=== PATIENT | male | born 1940 | race Caucasian/White ===

== ENCOUNTER → 2017-09-18 07:01 | Outpatient (CLI) | payer MEDICARE, BC, SELFPAY ==
[2017-09-18 11:48] LABS: Erythrocyte Sedimentation Rate 3 mm/hr (0-20)
[2017-09-18 11:52] LABS: Absolute Lymphocyte Count 1.14 X10^3/ul (0.83-4.51); Absolute Neutrophil Count 3.2 X10^3/uL (2.0-7.7); Basophil# 0.04 X10^3/uL; Basophil% 0.8 % (0-1); Eosinophil# 0.22 X10^3/uL; Eosinophils% 4.3 % (0-5); Hematocrit 42.4 % (40-54); Hemoglobin 13.9 g/dl (13.0-16.5); Lymphocyte # 1.14 X10^3/ul (4.0); Lymphocyte % 22.4 % (19-41); Mean Corp Hgb Conc 32.8 g/gl (32-36); Mean Corpuscular Volume 88.5 fL (80-94); Monocyte# 0.49 X10^3/uL; Monocyte% 9.6 % (0-10); Neutrophil # 3.21 X10^3/uL (2.7-7.7); Neutrophil % 62.9 % (47-70); Platelet Count 189 K/mm3 (150-450); RBC Distribution Width CV 13.8 % (11.6-14.6); RBC Distribution Width SD 43.9 fl (35.1-43.9); Red Blood Count 4.79 M/mm3 (4.6-6.2); White Blood Count 5.1 K/mm3 (4.4-11.0)
[2017-09-18 11:53] LABS: POSITIVE COUNT NO; POSITIVE DIFFERENTIAL NO; POSITIVE MORPHOLOGY NO
[2017-09-18 12:16] LABS: CRP < 2.90 mg/L (0.0-3.0)
== END ==
PROVIDERS: Family Provider Family Medicine; PCP Family Medicine; Visit Provider Specialist
DX: M25.562 Pain in left knee (principal)
CPT/HCPCS: 36415; 85025; 85652; 86140

== ENCOUNTER 2017-10-02 10:25 | Inpatient (IN) | payer MEDICARE, BC, SELFPAY ==
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
[2017-09-21 08:29] VITALS: BP 144/82; PULSE 64; RESP 17; TEMP 36.3; O2SAT 97; BMI 30.4
[2017-09-21 09:36] LABS: AST(SGOT) 22 U/L (15-37); Alanine Aminotransfer ALT/SGPT 23 U/L (16-61); Albumin, Serum 3.7 g/dL (3.2-5.0); Alkaline Phosphatase 70 U/L (45-117); Anion Gap 7 (5-15); BUN 25 mg/dL (7-18); Bilirubin, Direct 0.12 mg/dL (0.00-0.30); Calcium,Total 8.4 mg/dL (8.5-10.1); Chloride 105 mmol/L (98-107); EST Glomerular Filtration Rate 77 mL/min (>60); Est Glom Filt Rate - Afr Amer 94 mL/min (>60); Globulin 3.2 g/dL (2.2-4.2); Glucose 131 mg/dL (74-106); Protein, Total 6.9 g/dL (6.4-8.2); Sodium Level 140 mmol/L (136-145)
[2017-10-02] VITALS (13 sets, daily range): BP systolic 133–174; BP diastolic 73–86; PULSE 67–82; RESP 16; TEMP 36.1–36.9; O2SAT 91–96; BMI 30.4
--- NOTE | 2017-10-02 07:12 | RAD_ITS ---
STUDY: X-RAY - LEFT KNEE REASON FOR EXAM: Male, 77 years old. Total knee replacement. TECHNIQUE: AP and lateral view(s) of the knee. COMPARISON: None. FINDINGS: Normal visualized distal femur. Normal visualized proximal tibia and fibula. Normal proximal tibiofibular articulation. The patient is status post total knee replacement. There is good alignment. Postoperative soft tissue changes. RAD/Knee 1 or 2 Views IMPRESSION: Total knee replacement. There is good alignment. Postoperative soft tissue changes. Electronically Signed: Carroll Villegas MD at 14:58 EDT Tel [phone], Service support ,
[2017-10-02] MEDS: Lactated Ringers 1,000 ML 999 ML IV (10:55)
[2017-10-02] MEDS: oxyCODONE HCl Cr 10 MG Tablet PO (11:19)
[2017-10-02] MEDS: Celecoxib 200 MG Capsule 400 MG PO (11:19)
[2017-10-02] MEDS: Acetaminophen 500 MG Tablet 1000 MG PO ×3 (11:19→21:08)
[2017-10-02] MEDS: Cefazolin 2 GM in 0.9% Normal Saline 100 ML IV (12:43)
--- NOTE | 2017-10-02 13:24 | PCM.OPRPT ---
Report of Operation Date of Procedure: 10/02/17 Pre-Operative Diagnosis: Unstable left total knee replacement Post-Operative Diagnosis: Unstable left total knee replacement Surgery/Procedure Performed:: Tibial component revision left knee Description of Surgical Findings:: Stable knee with good patella tracking improved stability pharmacist technician: Matt Parsons Type of Anesthesia:: General Anesthesiologist: Lele Mota Special Medications: 2 g Ancef, 1 g TXA at incision, 1 g TXA closure, 10 mg Decadron, joint cocktail (5 mg Duramorph, 30 mL of 0.5% Ropivicaine, 1000 units of epinephrine, 30 mg of Toradol), vancomycin IV 15 mg/kg Specimen's removed: 3 separate specimens were sent to microbiology Estimated Blood Loss (mL): 25 Fluids Replaced: 750 mL crystalloid Description of Procedure: My physician railway yard assistant was a vital part of this case. He was important in appropriate retraction during the case, and protection of soft tissues during bony cuts. His intimate knowledge of the case and my steps aided in safe and expedient completion of the procedure as well as appropriate position of the leg during the case. He was also vital in assisting with closure under my direct supervision. Brief history operative indications: 77-year-old male with history of left total knee replacement with feelings of instability and pain. Infection was ruled out. Discussion of revision total knee arthroplasty as well as risk and benefits were discussed the patient including but not limited to blood loss, DVTs, PEs, neurovascular damage, general risk of anesthesia including loss of life, and stiffness or instability were discussed with patient. Patient demonstrated understanding and was able to sign informed consent. Procedure: On the date of procedure patient's left lower extremity was marked in the preoperative area. The patient was then taken back to the operating room where the patient was placed on the table in the supine position. All bony prominences were identified a well-padded. Anesthesia assumed control of the C-spine and airway and remained controlled throughout the remainder of the procedure. A tourniquet was placed on the left upper thigh and the leg was prepped in a sterile fashion. The surgeon then scrubbed at this time .Upon reentering the room left lower extremity was draped in a standard orthopedic fashion. A timeout was then called and everyone agreed upon the side, the site, the procedure to be performed, patient's identity and antibiotics given. Esmarch bandage was used to exsanguinate the extremity and the tourniquet was placed up to 250 mmHg with the knee in flexion. A midline skin incision was made and sharp dissection was taken down through skin subcutaneous tissue and fat. The standard medial parapatellar incision was made and the patella was subluxed laterally. The standard deep MCL release was done and the fat pad was resected. Once the arthrotomy was performed and we were in the knee with appropriate releases a complete synovectomy was performed. Starting in the medial gutter re-creating the medial gutter, correcting her kitchen to the suprapatellar pouch re-creating the suprapatellar pouch and sending some of the synovium for culture. Re-creating the lateral gutter than. At this time the knee was flexed up an osteotome was used to remove the polyethylene. Posterior knee and PCL synovium were also collected for culture. Once this was done tourniquet was let down and hemostasis was obtained. We then trialed using 11 mm polyethylene is a 9 mm had been removed. This gave us a more stable knee in both flexion and extension. 6 L of normal saline were irrigated throughout the knee after the 11 mm trial polyethylene was removed. This was done using low-pressure lavage. Once this was completed 11 mm polyethylene component was opened and impacted into place. Once the locking mechanism engaged it was verified. Once the final components were placed the wound was copiously irrigated with normal saline solution and the periarticular injection was given. The wound was closed in a layer gore fashion using #1 vicryl interrupted sutures for the arthrotomy, 2-0 interrupted Vicryl suture for the subcuticular layer and [place] for final skin closure. A sterile compressive dressing was then placed. The patient was then awakened from anesthesia, transferred to the [facility] and transferred to the PACU for recovery. Post op plan Follow up: in office in 2 weeks for wound check PT: to start POD #0 at hospital, outpatient PT should be arranged. Grafts/Implants Used: Aby congruent polyethylene 11 mm for size 3,4,5 - Complications none - Admit VTE Documentation VTE Present on Admission: No VTE Mechan Device Prophylaxis: SCD's, Thigh High JOSE Hose VTE Pharm Prophylaxis ordered?: Yes
--- NOTE | 2017-10-02 13:29 | OP.PCM_ITS ---
Report of Operation Date of Procedure: 10/02/17 Pre-Operative Diagnosis: Unstable left total knee replacement Post-Operative Diagnosis: Unstable left total knee replacement Surgery/Procedure Performed:: Tibial component revision left knee Description of Surgical Findings:: Stable knee with good patella tracking improved stability strategic account director: Matt Parsons Type of Anesthesia:: General Anesthesiologist: Lele Mota Special Medications: 2 g Ancef, 1 g TXA at incision, 1 g TXA closure, 10 mg Decadron, joint cocktail (5 mg Duramorph, 30 mL of 0.5% Ropivicaine, 1000 units of epinephrine, 30 mg of Toradol), vancomycin IV 15 mg/kg Specimen's removed: 3 separate specimens were sent to microbiology Estimated Blood Loss (mL): 25 Fluids Replaced: 750 mL crystalloid Description of Procedure: My physician retail store assistant was a vital part of this case. He was important in appropriate retraction during the case, and protection of soft tissues during bony cuts. His intimate knowledge of the case and my steps aided in safe and expedient completion of the procedure as well as appropriate position of the leg during the case. He was also vital in assisting with closure under my direct supervision. Brief history operative indications: 77-year-old male with history of left total knee replacement with feelings of instability and pain. Infection was ruled out. Discussion of revision total knee arthroplasty as well as risk and benefits were discussed the patient including but not limited to blood loss, DVTs, PEs, neurovascular damage, general risk of anesthesia including loss of life, and stiffness or instability were discussed with patient. Patient demonstrated understanding and was able to sign informed consent. Procedure: On the date of procedure patient's left lower extremity was marked in the preoperative area. The patient was then taken back to the operating room where the patient was placed on the table in the supine position. All bony prominences were identified a well-padded. Anesthesia assumed control of the C- spine and airway and remained controlled throughout the remainder of the procedure. A tourniquet was placed on the left upper thigh and the leg was prepped in a sterile fashion. The surgeon then scrubbed at this time .Upon reentering the room left lower extremity was draped in a standard orthopedic fashion. A timeout was then called and everyone agreed upon the side, the site, the procedure to be performed, patient's identity and antibiotics given. Esmarch bandage was used to exsanguinate the extremity and the tourniquet was placed up to 250 mmHg with the knee in flexion. A midline skin incision was made and sharp dissection was taken down through skin subcutaneous tissue and fat. The standard medial parapatellar incision was made and the patella was subluxed laterally. The standard deep MCL release was done and the fat pad was resected. Once the arthrotomy was performed and we were in the knee with appropriate releases a complete synovectomy was performed. Starting in the medial gutter re -creating the medial gutter, correcting her kitchen to the suprapatellar pouch re-creating the suprapatellar pouch and sending some of the synovium for culture. Re-creating the lateral gutter than. At this time the knee was flexed up an osteotome was used to remove the polyethylene. Posterior knee and PCL synovium were also collected for culture. Once this was done tourniquet was let down and hemostasis was obtained. We then trialed using 11 mm polyethylene is a 9 mm had been removed. This gave us a more stable knee in both flexion and extension. 6 L of normal saline were irrigated throughout the knee after the 11 mm trial polyethylene was removed. This was done using low- pressure lavage. Once this was completed 11 mm polyethylene component was opened and impacted into place. Once the locking mechanism engaged it was verified. Once the final components were placed the wound was copiously irrigated with normal saline solution and the periarticular injection was given. The wound was closed in a layer gore fashion using #1 vicryl interrupted sutures for the arthrotomy, 2-0 interrupted Vicryl suture for the subcuticular layer and [place] for final skin closure. A sterile compressive dressing was then placed. The patient was then awakened from anesthesia, transferred to the [facility] and transferred to the PACU for recovery. Post op plan Follow up: in office in 2 weeks for wound check PT: to start POD #0 at hospital, outpatient PT should be arranged. Grafts/Implants Used: Aby congruent polyethylene 11 mm for size 3,4,5 - Complications none - Admit VTE Documentation VTE Present on Admission: No VTE Mechan Device Prophylaxis: SCD's, Thigh High JOSE Hose VTE Pharm Prophylaxis ordered?: Yes
[2017-10-02] MEDS: Scopolamine 1mg/72hr Patch 1 PATCH TD (15:06)
[2017-10-02] MEDS: Lactated Ringers 1,000 ML 125 ML IV (15:07)
[2017-10-02] MEDS: Lisinopril 40 MG Tablet PO (16:24)
[2017-10-02] MEDS: Gabapentin 300 MG Capsule PO (16:24)
[2017-10-02] MEDS: Tamsulosin HCl 0.4 MG Capsule PO (16:24)
[2017-10-02] MEDS: Aspirin E.C. 81 MG Tablet PO (17:48)
[2017-10-02] MEDS: Venlafaxine HCl 75 MG Tablet 37.5 MG PO ×2 (17:48→21:07)
[2017-10-02] MEDS: Psyllium 1 PACKET PO (17:49)
[2017-10-02] MEDS: Atorvastatin Calcium 40 MG Tablet PO (21:06)
[2017-10-02] MEDS: Senna/Docusate Sodium 1 Tablet 2 TABLET PO (21:07)
[2017-10-02] MEDS: Metoprolol Tartrate 50 MG Tablet PO (21:07)
[2017-10-02] MEDS: morphine SR 15 MG Tablet PO (21:07)
[2017-10-02] MEDS: Magnesium Oxide 400 MG Tablet PO (21:08)
[2017-10-02] MEDS: clonazePAM 0.5 MG Tablet PO (21:08)
[2017-10-02] MEDS: Cefazolin 1 GM/50 ML BAG IV (21:53)
[2017-10-03 01:47] VITALS: BP 135/85; PULSE 72; RESP 16; TEMP 36.6; O2SAT 96
[2017-10-03] MEDS: Lactated Ringers 1,000 ML 125 ML IV (01:52)
[2017-10-03] MEDS: Cefazolin 1 GM/50 ML BAG IV (05:20)
[2017-10-03] MEDS: Acetaminophen 500 MG Tablet 1000 MG PO ×2 (05:20→13:56)
[2017-10-03] MEDS: Venlafaxine HCl 75 MG Tablet 37.5 MG PO ×2 (05:20→13:57)
[2017-10-03 06:09] LABS: Hematocrit 39.1 % (40-54); Hemoglobin 12.8 g/dl (13.0-16.5); Mean Corp Hgb Conc 32.7 g/gl (32-36); Mean Corpuscular Hgb 29.1 pg (27.0-32.0); Mean Corpuscular Volume 88.9 fL (80-94); Mean Platelet Vol. 11.3 fl (6.2-12.0); Platelet Count 177 K/mm3 (150-450); RBC Distribution Width CV 13.7 % (11.6-14.6); White Blood Count 12.2 K/mm3 (4.4-11.0)
[2017-10-03 06:12] LABS: Anion Gap 7 (5-15); BUN 25 mg/dL (7-18); BUN/Creat Ratio 19.7 RATIO (10-20); Calcium,Total 8.1 mg/dL (8.5-10.1); Chloride 107 mmol/L (98-107); Creatinine, Serum 1.27 mg/dL (0.70-1.30); EST Glomerular Filtration Rate 59 mL/min (>60); Est Glom Filt Rate - Afr Amer 71 mL/min (>60); Estimated Creatinine Clearance 51.89 ml/min; Glucose 149 mg/dL (74-106); Potassium 4.6 mmol/L (3.5-5.1); Sodium Level 139 mmol/L (136-145)
[2017-10-03 06:14] LABS: Scan Indicated on CBC? Y/N NO
[2017-10-03] MEDS: 0.9% NaCl Peripheral Flush Adult/Peds IV (06:46)
--- NOTE | 2017-10-03 06:54 | PN.ORTHO_ITS ---
Subjective: The patient was sitting in bedside chair upon examination. Patient denies any chest pain, shortness of breath, dizziness, lightheadedness, nausea or vomiting , or calf pain. Pain is controlled on medications. No adverse overnight events. Overall patient is doing well. He states the pain is very well controlled at this time. Patient did undergo a block. He is wishing to go home today if pain is controlled and tolerates therapy. Objective: Vital signs stable and afebrile. Patient is able to plantarflex and dorsiflex actively. Sensation is intact to light touch to saphenous, sural, superficial and deep peroneal, and tibial distribution. Dressing is with minimal drainage distal one third Negative Homans bilaterally, negative signs and symptoms of DVT. - Physical Exam General: Alert, Oriented x3, Cooperative, No apparent distress Vital Signs Temp Pulse Resp BP Pulse Ox 97.8 F 72 16 135/85 H 96 10/03/17 01:47 10/03/17 01:47 10/03/17 01:47 10/03/17 01:47 10/03/17 01:47 Oxygen Flow Rate (L/min) 2 Oxygen Delivery Method Nasal Cannula Weight: 96.2 kg Body Mass Index (BMI) 30.4 Finger Stick Blood Glucose 130 Intake and Output for Last 24 Hours 10/01/17 10/02/17 10/03/17 23:59 23:59 23:59 Intake Total 1000 / 1000 1984 Balance 1000 / 1000 1984 Microbiology Past 72 Hours 10/02/17 Unknown Gram Stain - Final Tissue - Knee 10/02/17 Unknown Gram Stain - Final Tissue - Knee 10/02/17 Unknown Gram Stain - Final Tissue - Knee Laboratory Tests Past 24 Hrs 10/03/17 10/03/17 05:44 05:44 WBC 12.2 H RBC 4.40 L Hgb 12.8 L Hct 39.1 L MCV 88.9 MCH 29.1 MCHC 32.7 RDW 13.7 RDW Differential 44.0 H Plt Count 177 MPV 11.3 Sodium 139 Potassium 4.6 Chloride 107 Carbon Dioxide 25.0 Anion Gap 7 BUN 25 H Creatinine 1.27 Estim Creat Clear Calc 51.89 Est GFR (MDRD) Af Amer 71 Est GFR (MDRD) Non-Af 59 L BUN/Creatinine Ratio 19.7 Glucose 149 H Calcium 8.1 L Medical Necessity - Tobacco Use Smoking Status: Never smoker Assessment/Plan All Active Problems (Last Reviewed 09/13/17 @ 09:53 by Alfredo Dang MD) Elevated cortisol level (Acute) Sinus tachycardia (Acute) Cardiac dysrhythmia (Ruled-out) 1. S/P left total knee revision with polyethylene exchange POD #1 2. Continue Pain Medications: Tylenol, OxyIR, MS Contin 3. DVT Prophylaxis: Aspirin 81 mg twice daily for 4 weeks 4. PT/OT: Weightbearing as tolerated 5. H & H: 12.8/39.1, asymptomatic 6. Leukocytosis: Currently 12.2, afebrile. Patient did receive Decadron intraoperatively. 7. Continue antibiotics while following cultures: Currently on doxycycline for 1 week postoperatively 8. Encouraged Incentive Spirometry 9. Disposition: Plan will be for possible discharge home this afternoon if pain is controlled and patient tolerates physical therapy. Prescriptions will be E scribed to [facility]. Patient will follow-up per postop instructions.
--- NOTE | 2017-10-03 07:11 | DCINST_ITS ---
Discharge Diet: No Restrictions Discharge Activity: May Not Drive May shower in (days): 1 - Turned dressing away from water Ice area for (Minutes): 20 - every hour while awake. Weight Bearing Status: Weight bearing as tolerated Elevate: Operative Extremity Additional Activity Instructions:: Wear elastic stockings for 2 weeks after your surgery. Call your doctor if your incision/area has: Continuous Slow Oozing, Sudden Increased Bleeding, Increased Pain/ Swelling, Increased Redness, Foul Smelling Discharge Call your doctor if you observe: Fever of 101 or Higher, Coldness, Increased Pain, Numbness or Tingling, Change in Color, Calf discomfort, Uncontrolled pain Remove Dressing in (days):: 4 - Remove dressing on October 07, 2017 Additional Instructions: Follow [facility] postop instructions Allergies/Adverse Reactions: Allergies ibuprofen Adverse Reaction (Intermediate, Verified 10/01/17 12:59) Other BLEEDING/bruising levofloxacin [From Levaquin] Adverse Reaction (Verified 10/01/17 12:59) Other MOUTH SORES Medications to take at Discharge Acetaminophen [Tylenol Extra Strength] 500 mg PO 4X/DAY 08/15/16 Alfuzosin HCl [Alfuzosin HCl ER] 10 mg PO DINNER 08/15/16 Atorvastatin Calcium 40 mg PO QHS 08/15/16 Calcium Carbonate [Tums] 500 mg PO DAILY PRN 08/15/16 Cholecalciferol (Vitamin D3) [Vitamin D3] 1,000 unit PO DAILY 08/15/16 Clonazepam [Klonopin] 0.5 mg PO BID 08/15/16 Gabapentin [Neurontin] 300 mg PO TID 08/15/16 Guaifenesin [Mucinex] 600 mg PO DAILY PRN 08/15/16 Magnesium Oxide [Magnesium] 400 mg PO BID 08/15/16 Metoprolol Tartrate [Lopressor (beta jordan)] 50 mg PO BID 08/15/16 Psyllium [Metamucil] 1 packet PO DAILY PRN 08/15/16 Trandolapril [Mavik] 4 mg PO DAILY 08/15/16 Venlafaxine HCl 37.5 mg PO TID 08/15/16 ranitidine 75 mg tablet 75 mg PO DAILY 09/11/17 Acetaminophen [Tylenol] 1,000 mg PO Q8 #90 tab 10/03/17 Aspirin E.C. [Ecotrin] 81 mg PO BIDCM #60 tab 10/03/17 Doxycycline 100 mg PO BID #12 cap 10/03/17 Oxycodone [Oxyir] 5 - 10 mg PO Q4H PRN PRN 6 Days #80 tablet 10/03/17 Senna/Docusate Sodium [Senokot-S] 2 tab PO BID #20 tab 10/03/17 morphine SR tablet [Ms Contin] 15 mg PO BID 4 Days #8 tablet 10/03/17 The following prescriptions were given: Oxycodone [Oxyir] 5 - 10 mg PO Q4H PRN PRN 6 Days #80 tablet PRN Reason: Mod-Severe Pain (-12/26) Acetaminophen [Tylenol] 1,000 mg PO Q8 #90 tab Aspirin E.C. [Ecotrin] 81 mg PO BIDCM #60 tab Doxycycline 100 mg PO BID #12 cap morphine SR tablet [Ms Contin] 15 mg PO BID 4 Days #8 tablet Senna/Docusate Sodium [Senokot-S] 2 tab PO BID #20 tab Primary Care Physician: Gagan Avina DO [Primary Care Provider] - Test Results: Test results from this visit will be discussed in further detail at your follow- up appointment, if applicable. Please Follow Up With: Matt Parsons PA-C When: 10/15/17 @ 8:15 am Please Follow Up With: physical therapy When: home health
[2017-10-03] MEDS: Lisinopril 40 MG Tablet PO (07:59)
[2017-10-03] MEDS: Senna/Docusate Sodium 1 Tablet 2 TABLET PO (07:59)
[2017-10-03] MEDS: Famotidine 20 MG Tablet 10 MG PO (07:59)
[2017-10-03 08:00] VITALS: BP 144/84; PULSE 85; RESP 16; TEMP 36.7; O2SAT 95
[2017-10-03] MEDS: Gabapentin 300 MG Capsule PO ×2 (08:00→13:56)
[2017-10-03] MEDS: Metoprolol Tartrate 50 MG Tablet PO (08:00)
[2017-10-03] MEDS: Aspirin E.C. 81 MG Tablet PO (08:00)
[2017-10-03] MEDS: Magnesium Oxide 400 MG Tablet PO (08:00)
[2017-10-03] MEDS: clonazePAM 0.5 MG Tablet PO (10:09)
[2017-10-03] MEDS: morphine SR 15 MG Tablet PO (10:09)
[2017-10-03] MEDS: Doxycycline 100 MG CAPSULE PO (10:16)
--- NOTE | 2017-10-03 13:40 | CASEMGMT ---
JAYLEN KHALIL Face to Face with patient for initial transition planning/care coordination assessment. RN CM introduced self and role at [facility]. Patient sitting on edge of bed, alert and oriented, at bedside. Patient states that he want to discharge and that VERNELL Parsons said that HHC is setup. RN CM updated patient that HHC would need to be setup, stated that HHC is needed to assist with putting patient's renetta hose on daily. RN SIMRAN explained to patient and that HHC would not be coming daily to put on renetta hose and that patient would need to be home bound. Patient irritated and stated that he would follow-up and complete outpatient therapy and would have neighbor assist with renetta hose. JAYLEN KHALIL offered to setup outpatient therapy at [facility], patient's preferred facility for outpatient therapy. Patient stated that he would call and setup his own therapy for when he wanted it. RN CM encouraged patient to call later today and setup outpatient therapy for Sunday 10/08. Patient requested that RN CM update nurse to assist with discharge instruction and his trouble with constipation. CM to follow for discharge planning needs that may arise. Disposition Plan: Patient to discharge home with outpatient therapy, family support, and follow-up plans in place.
[2017-10-03] MEDS: Psyllium 1 PACKET PO (13:56)
[2017-10-03] MEDS: Bisacodyl 10 MG Suppository RECTAL (14:00)
== END 2017-10-03 14:20 | disposition home or self-care (01) | DRG 468 ==
LOC: ACINP 10:30 → MS3 13:57
PROVIDERS: Anesthesiology; Admitting Provider Specialist; Family Provider Family Medicine; PCP Family Medicine; Visit Provider Specialist
PROC: 0SPW0JZ Removal of Synthetic Substitute from Left Knee Joint, Tibial Surface, Open Approach (ICD-10-PCS; CPT 27487; principal; 2017-10-02 12:35)
DX: T84.023A Instability of internal left knee prosthesis, initial encounter (principal); T84.84XA Pain due to internal orthopedic prosthetic devices, implants and grafts, initial encounter; I10 Essential (primary) hypertension; Z95.0 Presence of cardiac pacemaker; M54.5 Low back pain; G47.30 Sleep apnea, unspecified; Z86.14 Personal history of Methicillin resistant Staphylococcus aureus infection; Z86.73 Personal history of transient ischemic attack (TIA), and cerebral infarction without residual deficits; Z96.653 Presence of artificial knee joint, bilateral
CPT/HCPCS: 36415; 73560; 80048; 80076; 85027; 87015; 87070; 87075; 87081; 87102; 87116; 87205; 87206; 97116; 97162; 97165; 97530; 97535; 99251; C1776; J7040; J7120; A4216; G0463; J2405

== ENCOUNTER → 2018-06-20 07:06 | Outpatient (CLI) | payer MEDICARE, OTHER, SELFPAY ==
[2017-10-02 15:30] VITALS: BMI 30.4
[2018-06-20 10:12] LABS: AST(SGOT) 21 U/L (15-37); Alanine Aminotransfer ALT/SGPT 25 U/L (16-61); Albumin, Serum 3.9 g/dL (3.2-5.0); Alkaline Phosphatase 75 U/L (45-117); Bilirubin, Direct 0.15 mg/dL (0.00-0.30); Cholesterol 76 mg/dL (200); Globulin 3.2 g/dL (2.2-4.2); High Density Lipoprotein 30 mg/dL; Protein, Total 7.1 g/dL (6.4-8.2); Triglycerides 112 mg/dL; Very Low Density Lipoprotein 22 mg/dL (5-40)
== END ==
PROVIDERS: Family Provider Family Medicine; PCP Family Medicine; Referring Provider Family Medicine; Visit Provider Family Medicine
DX: E78.5 Hyperlipidemia, unspecified (principal)
CPT/HCPCS: 36415; 80061; 80076

== ENCOUNTER → 2018-07-03 | Outpatient (CLI) | payer MEDICARE, OTHER, SELFPAY ==
[2018-07-03 10:05] LABS: Absolute Neutrophil Count 3.4 X10^3/uL (2.0-7.7); Basophil# 0.03 X10^3/uL; Basophil% 0.6 % (0-1); Eosinophil# 0.26 X10^3/uL; Eosinophils% 5.3 % (0-5); Hematocrit 40.2 % (40-54); Hemoglobin 12.8 g/dl (13.0-16.5); Lymphocyte % 18.2 % (19-41); Mean Corp Hgb Conc 31.8 g/gl (32-36); Mean Corpuscular Volume 91.2 fL (80-94); Mean Platelet Vol. 11.2 fl (6.2-12.0); Monocyte# 0.33 X10^3/uL; Monocyte% 6.7 % (0-10); Neutrophil # 3.42 X10^3/uL (2.7-7.7); Neutrophil % 69.2 % (47-70); Platelet Count 175 K/mm3 (150-450); RBC Distribution Width CV 13.6 % (11.6-14.6); Red Blood Count 4.41 M/mm3 (4.6-6.2); White Blood Count 4.9 K/mm3 (4.4-11.0)
[2018-07-03 10:07] LABS: POSITIVE COUNT NO; POSITIVE DIFFERENTIAL NO; POSITIVE MORPHOLOGY NO
[2018-07-03 12:36] LABS: CRP < 2.90 mg/L (0.0-3.0)
[2018-07-03 15:28] LABS: Erythrocyte Sedimentation Rate 3 mm/hr (0-20)
== END | disposition home or self-care (01) ==
LOC: MTLAB 08:00
PROVIDERS: Family Provider Family Medicine; PCP Family Medicine; Referring Provider Physician Assistant Surgical; Visit Provider Physician Assistant Surgical
DX: Z96.651 Presence of right artificial knee joint (principal); Z96.652 Presence of left artificial knee joint
CPT/HCPCS: 36415; 85025; 85652; 86140

== ENCOUNTER 2019-04-14 08:16 | Emergency (ER) | payer MEDICARE, OTHER, SELFPAY ==
[2018-09-17 08:37] VITALS: BMI 30.7
[2019-04-14 08:18] VITALS: BP 144/84; PULSE 85; RESP 17; TEMP 36.5; O2SAT 95; BMI 28.4
--- NOTE | 2019-04-14 08:41 | CT_ITS ---
STUDY: CT BRAIN WITHOUT CONTRAST REASON FOR EXAM: Male, 79 years old. ALTERED MENTAL STATUS RADIATION DOSAGE (If Supplied By Facility): CTDIvol = ( 44.99 ) mGy, DLP = ( 883.29 ) mGycm TECHNIQUE: Transaxial CT imaging of the brain was performed without administration of intravenous contrast material. Individualized dose optimization techniques were used for this CT. COMPARISON: Comparison is made with prior study dated October 18, 2014. FINDINGS: Normal soft tissue structures. Normal calvarium. There is mild cerebral atrophy with widening of the extra-axial spaces and ventricular dilatation. There is evidence of encephalomalacia involving the left occipital and medial posterior left parietal lobes in keeping with prior infarction. Normal basal ganglia and thalami. Normal brainstem. Normal cerebellum. There is no intracranial hemorrhage. There are no findings of an acute ischemic infarction. Normal visualized paranasal sinuses. 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 No acute abnormality is seen. Electronically Signed: Carroll Villegas, at 10:22 EST , Service support ,
--- NOTE | 2019-04-14 08:41 | EKG12_ITS ---
Test Reason : MENTAL HEALTH Blood Pressure : / mmHG Vent. Rate : 074 BPM Atrial Rate : 074 BPM P-R Int : 184 ms QRS Dur : 192 ms QT Int : 466 ms P-R-T Axes : 035 -84 072 degrees QTc Int : 517 ms Atrial-sensed ventricular-paced rhythm with occasional AV dual-paced complexes Abnormal ECG Confirmed by SOTERO MERCER, NINOSKA ([id number]), editorial specialist LUIS DUARTE ([id number]) on 04/16/2019 1:40:56 PM Referred By: THERESA Confirmed By:NINOSKA BEY MD
--- NOTE | 2019-04-14 08:47 | ED.VIS.GEN ---
History of Present Illness Chief Complaint: Mental Health Narrative: Patient reports the emergency department he had a concern for an overdose. told triage that he has had increased her increased confusion and anxiety. He states he feels weak in his arms and his legs and that he is numb from the waist down. However he states that he can still feel and if I stuck him with a needle he can feel that. He also states that sometimes he is slurring his words but not now. He denies any difficulty swallowing other than steak. He just came from breakfast and states he had no difficulty eating. He tells me that he has chronic pain all over but is not hurting right now because he was started on a new medication with Dr. Rodriguez 10 days ago. He does not know what that medication is. His states that it begins with X and the next letter is T. This most likely is Xtampza (oxycodone). Past Medical History - Allergies and Home Meds Allergies/Adverse Reactions: Allergies ibuprofen Adverse Reaction (Intermediate, Verified 04/14/19 08:18) Other BLEEDING/bruising levofloxacin [From Levaquin] Adverse Reaction (Verified 04/14/19 08:18) Other MOUTH SORES Primary Care Physician: Ramana Eckert DO [Primary Care Provider] - Surgical History: total hip arthroplasty, total knee arthroplasty - Bilateral, - - 3 separate back surgeries Smoking Status: Never smoker - Family History Paternal Family History: Family History (Last Reviewed 09/17/18 @ 10:10 by Alfredo Dang MD) Father Prostate cancer Mother Hypertension Thyroid disorder CVA (cerebral vascular accident) CAD (coronary artery disease) Family History: Reports: Cancer - His father had prostate cancer Maternal Family History: Family History (Last Reviewed 09/17/18 @ 10:10 by Alfredo Dang MD) Father Prostate cancer Mother Hypertension Thyroid disorder CVA (cerebral vascular accident) CAD (coronary artery disease) Family History: Reports: - - His mother had hypertension and had a stroke Sibling Family History: Family History (Last Reviewed 09/17/18 @ 10:10 by Alfredo Dang MD) Father Prostate cancer Mother Hypertension Thyroid disorder CVA (cerebral vascular accident) CAD (coronary artery disease) Family History: Reports: Hypertension Review of Systems General: Reports: Chills. Denies: Fever, Sweats Eyes: Denies: Visual changes - bilaterally, Diplopia ENT: Denies: Rhinorrhea, Sore throat Cardiovascular: Denies: Chest pain, Palpitations Respiratory: Denies: Dyspnea, Cough, Dyspnea on exertion Gastrointestinal: Denies: Abdominal pain, Nausea, Vomiting, Diarrhea, Melena, Hematochezia Genitourinary: Denies: Dysuria, Hematuria, Frequency Musculoskeletal: Denies: Back pain, Extremity Pain Skin: Denies: Rash, Wounds Neurological: Reports: Weakness, Parasthesia, Numbness, - - intermittent slurred speech. Denies: Headache Physical Exam Vital Signs/Narrative: Vital Signs Temp Pulse Resp BP Pulse Ox 04/14/19 08:18 97.7 F L 85 17 144/84 H 95 Inital Vital Signs reviewed: Yes General: Well nourished, Well developed, No Acute Distress Head: Normocephalic, Atraumatic Eyes: Perrl, EOMI ENT: Moist mucous membranes, No rhinorrhea Neck: Supple, Nontender Cardiovascular: Regular rate, Regular rhythm, No murmurs Respiratory: No distress, CTA bilaterally, Chest nontender Abdomen: Soft, Nontender, Nondistended, Normal bowel sounds Back: Nontender, Normal Inspection Extremities: Nontender, No edema Skin: Normal color, No rash Neurological: Alert, Oriented x3, Cranial nerves II-XII grossly intact, Normal Strength, Normal Sensation, - - Appears weak when ambulating to the bed. Psychological: Agitated Diagnostic/Tx/Re-eval - Rhythm Strip Rate: 74 - Atrial sensed ventricular paced rhythm - Medical Decision Making Showed no acute findings. Chest x-ray is negative. Patient was reassessed since that he states that he feels fine. He states that he will not be staying in the hospital. He states this is all related to his oxycodone. I spoke with His Pain Management Doctor. He Has Been on Oxycodone for Years. Dr. Rodriguez tells me that patient called him this morning stating that he was unable to move his legs. Patient tells me that he was at the breakfast when this happened. I am worried about the patient's mental health. He is not suicidal or homicidal. However he is extremely irritable and he on more than one occasion has yelled at his in the room. We interviewed the privately and she is not concerned for her safety. She however agrees that he is very irritable and mean and is only gotten worse since his stroke. I will attempt to speak with his PCP to relay this information but right now he does not meet criteria to be pink slipped. ED Disposition - Plan for ED Patient: Disposition: Home or Assisted Living Diagnosis: Paresthesia of bilateral legs Instructions: Paraesthesias Referrals: Ramana Eckert DO [Primary Care Provider] - As soon as possible Maia Rodriguez MD [STAFF PHYSICIAN] - As soon as possible (call the office to arrange follow up appointment)
[2019-04-14 09:23] LABS: Absolute Lymphocyte Count 0.93 X10^3/uL (0.83-4.51); Absolute Neutrophil Count 4.9 X10^3/uL (2.0-7.7); Basophil# 0.04 X10^3/uL; Basophil% 0.6 % (0-1); Eosinophil# 0.06 X10^3/uL; Eosinophils% 0.9 % (0-5); Hematocrit 40.3 % (40-54); Lymphocyte # 0.93 X10^3/ul (4.0); Lymphocyte % 14.2 % (19-41); Mean Corp Hgb Conc 32.3 g/dL (32-36); Mean Corpuscular Hgb 29.9 pg (27.0-32.0); Mean Corpuscular Volume 92.6 fL (80-94); Mean Platelet Vol. 10.9 fl (6.2-12.0); Monocyte% 9.2 % (0-10); NRBC Flagged by Analyzer 0 % (0-5); Neutrophil # 4.88 X10^3/uL (2.7-7.7); Neutrophil % 74.8 % (47-70); Platelet Count 198 K/mm3 (150-450); RBC Distribution Width CV 13.7 % (11.6-14.6); RBC Distribution Width SD 46.9 fl (35.1-43.9); Red Blood Count 4.35 M/mm3 (4.6-6.2); White Blood Count 6.5 K/mm3 (4.4-11.0)
[2019-04-14 09:35] LABS: ALB/GLOB Ratio 1.3 RATIO (0.9-2.4); AST(SGOT) 28 U/L (15-37); Alanine Aminotransfer ALT/SGPT 31 U/L (16-61); Albumin, Serum 3.9 g/dL (3.2-5.0); Alkaline Phosphatase 55 U/L (45-117); Anion Gap 4 (5-15); BUN 35 mg/dL (7-18); BUN/Creat Ratio 24.5 RATIO (10-20); Calcium,Total 9.1 mg/dL (8.5-10.1); Chloride 108 mmol/L (98-107); Creatinine, Serum 1.43 mg/dL (0.70-1.30); EST Glomerular Filtration Rate 51 mL/min (>60); Est Glom Filt Rate - Afr Amer 62 mL/min (>60); Estimated Creatinine Clearance 46.08 ml/min; Glucose 124 mg/dL (74-106); Lipase 124 U/L (73-393); Magnesium 2.3 mg/dL (1.6-2.6); Potassium 3.8 mmol/L (3.5-5.1); Protein, Total 6.9 g/dL (6.4-8.2); Sodium Level 139 mmol/L (136-145)
[2019-04-14 09:45] LABS: Lactic Acid 1.7 mmol/L (0.4-1.9)
[2019-04-14 10:00] LABS: Alcohol, Blood (Medical)-Serum < 3.0 mg/dL
--- NOTE | 2019-04-14 10:00 | RAD_ITS ---
STUDY: X-RAY CHEST REASON FOR EXAM: Male, 79 years old. CHEST PAIN TECHNIQUE: PA and lateral views of the chest. COMPARISON: Comparison is made with prior study dated August 17, 2016. FINDINGS: EKG electrodes are seen. Stable mild elevation of the right hemidiaphragm. Scattered calcified granulomas. No acute abnormality is seen. There is no demonstrated pleural abnormality. Normal size heart. A left-sided dual-chamber pacemaker is seen. There are calcified mediastinal lymph nodes. Normal visualized pulmonary arteries. Normal visualized aortic arch and descending thoracic aorta. There are diffuse degenerative changes of the visualized thoracic spine. Normal visualized ribs, clavicles, and shoulders. There is no demonstrated abnormality of the visualized soft tissue structures of the upper abdomen. RAD/Chest PA and Lateral IMPRESSION: Stable examination. No acute abnormality is seen. Electronically Signed: Carroll Villegas, at 10:25 EST , Service support ,
[2019-04-14 10:27] VITALS: BP 157/84; PULSE 68; RESP 17; O2SAT 93
[2019-04-14 10:52] LABS: Red Blood Cells-Urine 0 SEEN /hpf (0-5); Squamous Epithelial Cells - UA 0 SEEN /hpf (0-5); White Blood Cells 0 SEEN /hpf (0-5)
[2019-04-14 10:58] LABS: Color, Urine Yellow (Yellow); Glucose, Dipstick Normal (Normal); Ketone-Dipstick 5 mg/dl (Negative); Leukocyte Esterase-Dipstick Negative /ul (Negative); Nitrite-Dipstick Negative (Negative); Occult Blood-Urine Negative /ul (Negative); Protein-Dipstick 30 mg/dl (Negative); Specific Gravity, Urine 1.025 (1.002-1.030); Urine Bilirubin Dipstick Negative (Negative); Urine Clarity Sl. Cloudy (Clear); Urine Urobilinogen Normal (Normal)
[2019-04-14 11:00] LABS: Bacteria RARE /hpf (None Seen); Hyaline Cast 0-5 SEEN /lpf (0-5); Mucous, Urine 1+ /hpf (<or=2+)
[2019-04-14 11:11] LABS: Amphetamine Urine VISTA NEGATIVE (<1000 ng/mL); Barbiturate Urine VISTA NEGATIVE (< 200 ng/mL); Benzodiazepine Urine VISTA NEGATIVE (< 200 ng/mL); Cocaine Urine VISTA NEGATIVE (< 300 ng/mL); Ecstacy Urine VISTA NEGATIVE (< 500 ng/mL); Methadone Urine VISTA NEGATIVE (< 300 ng/mL); PCP Urine VISTA NEGATIVE (< 25 ng/mL); THC Urine VISTA NEGATIVE (< 50 ng/mL); Vista UDS pH Range 5
--- NOTE | 2019-04-14 11:34 | ED.RN ---
this rn asked to step out of room to assess safety. this rn concerned due to angry outbursts from directed at . states she is ok but is concerned about his frequent angry outbursts and verbal abuse. dr pantoja aware
--- NOTE | 2019-04-14 16:25 | CM.ED ---
SOCIAL WORK INFORMANT: DR. BLOUNT AND NURSE, ZANDER REASON FOR REFERRAL: [facility] REFERRAL THIS WORKER REFERRED AFTER PATIENT HAD BEEN DISCHARGED. DISCUSSED CONCERNS ABOUT PATIENT'S ANGRY OUTBURSTS AND VERBAL ABUSE TOWARDS . NURSING STATES REQUIRED WHEELCHAIR TO CAR AND ASSIST WITH GETTING INTO CHILD DEVELOPMENT ASSOCIATE TEACHER'S SEAT TO TRANSPORT PATIENT HOME. DR. BLOUNT DISCUSSED CALLS TO PATIENT'S PCP AND PAIN MANAGEMENT REGARDING CONCERNS WITH PATIENT'S MENTAL STATUS/COGNITION. PER STAFF, REPORTED PATIENT GETTING MORE CONFUSED AND AGITATED. CALL TO JT WITH [facility]. REPORT REGARDING THE ABOVE COMPLETED. Lev COON MSW, WHOLESALE BU[employer]ER.
== END 2019-04-14 12:29 | disposition home or self-care (01) ==
PROVIDERS: Emergency Provider Emergency Medicine; PCP Student in an Organized Health Care Education/Training Program
DX: R20.2 Paresthesia of skin (principal); G89.29 Other chronic pain; Z79.891 Long term (current) use of opiate analgesic; Z86.73 Personal history of transient ischemic attack (TIA), and cerebral infarction without residual deficits
CPT/HCPCS: 70450; 71046; 80053; 80307; 80320; 81001; 83605; 83690; 83735; 85025; 93005; 99283; A4216; G0480

== ENCOUNTER → 2019-05-06 | Outpatient (CLI) | payer MEDICARE, OTHER, SELFPAY ==
[2019-04-14 08:18] VITALS: BMI 28.4
[2019-05-06 14:28] LABS: Amphetamine Urine VISTA NEGATIVE (<1000 ng/mL); Barbiturate Urine VISTA NEGATIVE (< 200 ng/mL); Benzodiazepine Urine VISTA NEGATIVE (< 200 ng/mL); Cocaine Urine VISTA NEGATIVE (< 300 ng/mL); Ecstacy Urine VISTA NEGATIVE (< 500 ng/mL); Methadone Urine VISTA NEGATIVE (< 300 ng/mL); PCP Urine VISTA NEGATIVE (< 25 ng/mL); THC Urine VISTA NEGATIVE (< 50 ng/mL); Vista UDS pH Range 5
== END | disposition home or self-care (01) ==
LOC: LAB 13:43
PROVIDERS: PCP Student in an Organized Health Care Education/Training Program; Referring Provider Anesthesiology Pain Medicine; Visit Provider Anesthesiology Pain Medicine
DX: F11.20 Opioid dependence, uncomplicated (principal)
CPT/HCPCS: 80307

== ENCOUNTER 2019-09-25 04:00 | Emergency (ER) | payer MEDICARE, OTHER, SELFPAY ==
[2019-09-25 04:00] VITALS: BP 208/104; PULSE 90; RESP 16; TEMP 36.2; O2SAT 92; BMI 29.3
[2019-09-25 04:03] VITALS: BP 198/96
[2019-09-25] MEDS: morphine 10 MG/ML Syringe IM (04:09)
--- NOTE | 2019-09-25 04:10 | ED.VISSUMM ---
- ER Visit Summary Date of Service: 09/25/19 Chief Complaint: Back pain History of Present Illness: The patient is a 79 M who has a history of chronic back pain presents this morning with back pain. He is chronic lumbar back pain. He states that tonight his pain is not under control. He took his home oxycodone without any relief. The pain is sharp in the lumbar region. Movement makes it worse. Nothing makes it better. He denies any numbness or tingling in his arms or legs. Denies urinary retention or bowel or bladder incontinence. He states that the character of the pain is the same as his normal pain. Denies any change in pain. No abdominal pain. He is awaiting back surgery. He does see pain management. Physical Examination: Vital signs reviewed. HEENT exam unremarkable. Heart is regular rate and rhythm without murmurs. Lungs are clear to auscultation. Abdomen is soft and nontender. There are no palpable masses. Extremities reveal no edema. His peripheral pulses are equal. Skin exam normal. Neurologic exam normal. Reflexes are equal on both sides. Test Results: None performed Emergency Department Course and Treatment: Since this is chronic pain I do not feel he needs any further imaging. He had a CAT scan performed in August at [facility]. I will give him morphine to help with his pain tonight. He will need to continue his home medications at home. Discussed alternative therapies with him including ice and positions of comfort. He will call his pain management doctor later this morning when their office opens. Treatment Plan: [] Disposition: Discharge Impression: Acute on chronic low back pain This note was generated with [employer] dictation software. It may contain incorrect words, spelling, and punctuation that were not noted in review of the chart prior to signing ED Disposition - Plan for ED Patient: Disposition: Home or Assisted Living Instructions: ED Back Pain Acute or Chronic Referrals: Ramana Eckert DO [Primary Care Provider] -
[2019-09-25 04:43] VITALS: BP 143/78
== END 2019-09-25 04:44 | disposition home or self-care (01) ==
LOC: ED 04:22
PROVIDERS: Emergency Provider Emergency Medicine; PCP Student in an Organized Health Care Education/Training Program
DX: M54.5 Low back pain (principal); G89.29 Other chronic pain; E78.00 Pure hypercholesterolemia, unspecified; Z86.73 Personal history of transient ischemic attack (TIA), and cerebral infarction without residual deficits; Z79.899 Other long term (current) drug therapy
CPT/HCPCS: 96372; 99282

== ENCOUNTER 2020-04-02 09:28 | Emergency (ER) | payer MEDICARE, OTHER, SELFPAY ==
[2019-10-14 15:08] VITALS: BMI 29.5
[2020-04-02 09:29] VITALS: BP 144/82; PULSE 65; RESP 18; TEMP 36.9; O2SAT 95; BMI 25.2
--- NOTE | 2020-04-02 09:45 | EKG12_ITS ---
Test Reason : HTN Blood Pressure : / mmHG Vent. Rate : 064 BPM Atrial Rate : 064 BPM P-R Int : 212 ms QRS Dur : 194 ms QT Int : 482 ms P-R-T Axes : 041 -71 104 degrees QTc Int : 497 ms Atrial-sensed ventricular-paced rhythm with prolonged AV conduction Abnormal ECG Confirmed by DAMIEN MERCER, ELIJAH ([id number]), index editor MANUEL DAHL ([id number]) on 04/07/2020 6:31:00 AM Referred By: EDUARDO Confirmed By:ELIJAH QUEZADA MD
--- NOTE | 2020-04-02 10:05 | ED.DCSUM_ITS ---
- ER Visit Summary Date of Service: 04/02/20 Chief Complaint: Anxiety History of Present Illness: The patient is a 80 M who presents with anxiety that has been getting worse over the past 2 weeks. Patient states that when he wakes up in the morning he feels anxious. Patient states his last for approximately 3 to 4 hours. Patient states his breathing is slow and he feels like he is gasping for air. Patient states nothing makes it better or worse. Patient denies any suicidal or homicidal ideations. Patient admits to a mild headache. Patient denies any cough. Patient denies any exposure to COVID-19. Patient denies any loss of taste or smell. Physical Examination: Vital signs are stable. Patient is afebrile. Patient is in no acute distress. Oral mucosa is pink and moist. Neck is supple. Trachea is midline. There is no JVD noted. Heart was regular rate and rhythm. Lungs are clear and equal bilaterally. Abdomen is soft. Bowel sounds are normal. There is no tenderness. There is no rebound or guarding noted. Skin is warm dry. Cranial nerves II through XII are intact. There are no focal motor or sensory deficits noted. Extremities are intact. There is no calf tenderness or edema. Test Results: EKG was obtained. On my interpretation, there is a paced rhythm with a rate of 64. There is a left bundle branch block pattern noted. There are no acute ST or T wave changes. This was unchanged compared to previous EKG dated 04/14/2019. CBC shows a white blood cell count of 2.7. Platelets were slightly low at 138. Basic metabolic profile was within normal limits. Troponin was normal. Emergency Department Course and Treatment: Patient was given a dose of Vistaril here. Patient was feeling better on reevaluation. Patient was given a prescription for Vistaril to take as needed. Patient was instructed to follow- up with his primary care physician in 5 to 7 days. Patient understood and was agreeable with the plan. All questions were answered. Disposition: Discharge home Impression: 1. Anxiety This note was generated with [employer]unk [employer]ation software. It may contain incorrect words, spelling, and punctuation that were not noted in review of the chart prior to signing ED Disposition - Plan for ED Patient: Disposition: Home or Assisted Living Diagnosis: Anxiety Instructions: ED Anxiety Reaction Prescriptions: hydrOXYzine pamoate capsule [Vistaril] 25 mg PO TID PRN PRN #30 cap PRN Reason: Anxiety Prescription Printed Referrals: Ramana Eckert DO [Primary Care Provider] - 5-7 Days
[2020-04-02] MEDS: hydrOXYzine PAM 25 MG Capsule PO (10:14)
[2020-04-02 10:27] LABS: Absolute Lymphocyte Count 0.64 X10^3/uL (0.83-4.51); Absolute Neutrophil Count 1.6 X10^3/uL (2.0-7.7); Basophil# 0.01 X10^3/uL; Basophil% 0.4 % (0-1); Eosinophil# 0.04 X10^3/uL; Eosinophils% 1.5 % (0-5); Hematocrit 39.5 % (40-54); Hemoglobin 13.1 g/dL (13.0-16.5); Lymphocyte # 0.64 X10^3/ul (4.0); Lymphocyte % 24.2 % (19-41); Mean Corp Hgb Conc 33.2 g/dL (32-36); Mean Corpuscular Hgb 29.4 pg (27.0-32.0); Mean Corpuscular Volume 88.8 fL (80-94); Mean Platelet Vol. 10.4 fl (6.2-12.0); Monocyte# 0.39 X10^3/uL; Monocyte% 14.7 % (0-10); NRBC Flagged by Analyzer 0 % (0-5); Neutrophil # 1.56 X10^3/uL (2.7-7.7); Neutrophil % 58.8 % (47-70); Platelet Count 138 K/mm3 (150-450); RBC Distribution Width CV 13.2 % (11.6-14.6); RBC Distribution Width SD 42.8 fl (35.1-43.9); Red Blood Count 4.45 M/mm3 (4.6-6.2); White Blood Count 2.7 K/mm3 (4.4-11.0)
[2020-04-02 10:43] LABS: ALB/GLOB Ratio 1.1 RATIO (0.9-2.4); AST(SGOT) 32 U/L (15-37); Alanine Aminotransfer ALT/SGPT 33 U/L (16-61); Albumin, Serum 3.5 g/dL (3.2-5.0); Alkaline Phosphatase 76 U/L (45-117); Anion Gap 3 (5-15); BUN 24 mg/dL (7-18); BUN/Creat Ratio 21.8 RATIO (10-20); Calcium,Total 8.5 mg/dL (8.5-10.1); Chloride 107 mmol/L (98-107); EST Glomerular Filtration Rate 69 mL/min (>60); Est Glom Filt Rate - Afr Amer 83 mL/min (>60); Estimated Creatinine Clearance 58.95 ml/min; Globulin 3.3 g/dL (2.2-4.2); Glucose 113 mg/dL (74-106); Potassium 4.1 mmol/L (3.5-5.1); Protein, Total 6.8 g/dL (6.4-8.2); Sodium Level 138 mmol/L (136-145)
[2020-04-02 11:07] VITALS: BP 151/76; PULSE 63; RESP 15; O2SAT 99
--- NOTE | 2020-04-02 11:11 | CM.ED ---
Social Work Consult: Anxiety Informant: Self Referral Met with patient in room. Introduced self and administrator social welfare role. Patient agreeable to speak with this administrator social welfare. Patient presents with appropriate and engaged affect. Patient reports to have needed support in the home and reports that Anxiety is only in the mornings and has started since patient spouse in 2019. Patient reports to have family that checks in with patient daily and declines information on community resources or grief support group. Patient reports I do think I have been doing okay. Patient denies suicidal thoughts, plans, intents. Patient forward focused and upbeat during conversation. Patient denies any community concerns/needs. Patient denies transportation issues. Patient reports to have a medical alert system at home that patient uses. Medical team updated. Sb GREER, GREGG
== END 2020-04-02 11:15 | disposition home or self-care (01) ==
PROVIDERS: Emergency Provider Emergency Medicine; PCP Student in an Organized Health Care Education/Training Program
DX: F41.9 Anxiety disorder, unspecified (principal); R51.9 Headache, unspecified
CPT/HCPCS: 80053; 84484; 85025; 93005; 99285; A4216

== ENCOUNTER 2020-07-25 20:45 | Emergency (ER) | payer MEDICARE, OTHER, SELFPAY ==
[2020-07-25 20:45] VITALS: BP 185/105; PULSE 65; RESP 18; TEMP 36.1; O2SAT 96; BMI 27.1
--- NOTE | 2020-07-25 21:06 | EKG12_ITS ---
Test Reason : EDEMA Blood Pressure : / mmHG Vent. Rate : 061 BPM Atrial Rate : 061 BPM P-R Int : 210 ms QRS Dur : 126 ms QT Int : 448 ms P-R-T Axes : 030 -14 259 degrees QTc Int : 450 ms AV dual-paced rhythm with prolonged AV conduction Abnormal ECG Confirmed by DAMIEN MERCER, ELIJAH ([id number]), editor publications LUIS DUARTE ([id number]) on 07/26/2020 1:04:41 PM Referred By: JUICE Confirmed By:ELIJAH QUEZADA MD
--- NOTE | 2020-07-25 21:08 | CT_ITS ---
HISTORY: PA study EXAMINATION: CTA Chest WO/W Contrast Injection TECHNIQUE: Helically acquired images were obtained of the chest following IV contrast as per pulmonary angiogram protocol with 3D reconstructions. A radiation dose optimization technique was used for this scan. IV Contrast dosage and agent: IV 100mL [id number]-[id number] COMPARISON: 5 04/06/2012 FINDINGS: LUNGS, PLEURA AND LARGE AIRWAYS: Bibasilar dependent changes without masses, consolidation, or edema. No pleural effusion or thickening. No pneumothorax. THYROID: No thyroid lesions. PULMONARY ARTERIES: Normal in caliber. No pulmonary embolism. 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 HEART AND PERICARDIUM: Heart size is normal. No pericardial effusion. No signs of right heart strain. MEDIASTINUM AND POONAM: No mediastinal or hilar adenopathy. Esophagus is unremarkable. No hiatal hernia. UPPER ABDOMEN: No acute pathology. Hepatic cysts in both lobes, increased in size from comparison study. Parapelvic left renal cysts BONES: No acute or aggressive abnormality. CT/CTA Chest W/WO Contrast IMPRESSION: Negative CTA Chest. No acute pulmonary findings. Individualized dose optimization techniques were used for this CT. at 2255 Reported and signed by: Lyndon Juan MD Electronically Signed: Lyndon Juan MD at 22:54 EDT Tel , Service support ,
--- NOTE | 2020-07-25 21:14 | EDS_ITS ---
HPI History of Present Illness Chief Complaint: Edema Narrative Narrative: 80-year-old male presents with left lower extremity swelling and shortness of breath. States this began over the course of the past 2 days. States he initially had pain in this leg and then began swelling today. States that he is somewhat short of breath. Worse on exertion. Denies any chest pain, nausea, vomiting, diaphoresis. No history of DVT or pulmonary embolism. Patient is not on anticoagulation. [facility] Medical History Anxiety and depression Atrioventricular block, Mobitz type 2 Atrioventricular omar re-entry tachycardia BPH (benign prostatic hyperplasia) Chronic osteoarthritis Chronic pain Diet-controlled type 2 diabetes mellitus Elevated cortisol level Essential (primary) hypertension History of CVA (cerebrovascular accident) (10/17/14) Hyperlipidemia Methicillin resistant Staphylococcus aureus infection Nonobstructive atherosclerosis of coronary artery Nonrheumatic tricuspid valve regurgitation Obesity Right bundle branch block Secondary pulmonary arterial hypertension Stroke/cerebrovascular accident Stroke/cerebrovascular accident Type II diabetes mellitus, uncontrolled Home Medications alfuzosin 10 mg PO DINNER 08/15/16 [History Last Taken Unknown] cholecalciferol (vitamin D3) 1,000 unit PO DAILY 08/15/16 [History Last Taken Unknown] gabapentin 300 mg PO TID 08/15/16 [History Last Taken 10/02/17 08:00 300 MG] magnesium oxide 400 mg PO BID 08/15/16 [History Last Taken Unknown] psyllium husk ([place]) 1 packet PO DAILY PRN 08/15/16 [History Last Taken Unknown] venlafaxine 37.5 mg PO TID 08/15/16 [History Last Taken Unknown] sennosides-docusate sodium 3 tab PO BID 04/14/19 [History Last Taken Unknown] atorvastatin 40 mg tablet 40 mg PO QHS #90 tab 10/14/19 [Rx Last Taken Unknown] lisinopril 40 mg tablet 40 mg PO DAILY #90 tab 10/14/19 [Rx Last Taken Unknown] metoprolol succinate 50 mg tablet,extended release 24 hr 50 mg PO BID #180 tab 10/14/19 [Rx Last Taken Unknown] pseudoephedrine HCl 30 mg tablet 30 mg PO Q6H PRN tab 10/14/19 [History Last Taken Unknown] hydroxyzine pamoate 25 mg PO TID PRN PRN #30 cap 04/02/20 [Rx Last Taken Unknown] alprazolam 0.5 mg PO BID PRN 07/25/20 [History Last Taken Unknown] clonidine HCl 0.1 mg PO DAILY PRN 07/25/20 [History Last Taken Unknown] naloxone [Narcan] 4 mg INTRANASAL Q3M PRN 07/25/20 [History Last Taken Unknown] Allergy/AdvReac Type Severity Reaction Status Date / Time ibuprofen AdvReac Intermediate Other Verified 07/25/20 21:03 levofloxacin [From Levaquin] AdvReac Other Verified 07/25/20 21:03 Family History Father Prostate cancer Mother Hypertension Thyroid disorder CVA (cerebral vascular accident) CAD (coronary artery disease) Surgical History History of back surgery (06/24/07) History of left heart catheterization (02/2005) History of left knee replacement 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) History of revision of total replacement of right knee joint (01/25/16) History of tonsillectomy and adenoidectomy History of total right knee replacement (10/07/09) Social History Smoking Status: Never smoker alcohol intake: never caffeine: Yes Type: tea ROS ROS ED Constitutional Constitutional ED: Denies chills, fever(s) or sweats Eyes Eyes: Denies blurry vision, change in vision or diplopia ENT ENT ED: Denies rhinorrhea or sore throat Cardiovascular Cardiovascular: Denies chest pain, orthopnea, palpitations or racing heartbeat Respiratory/Chest Respiratory/Chest: Reports dyspnea; Denies cough, dyspnea on exertion, orthopnea or sputum Gastrointestinal Gastrointestinal: Denies abdominal pain, constipation, diarrhea, melena, nausea or vomiting Genitourinary Genitourinary ED: Denies dysuria, hematuria or urinary frequency Musculoskeletal Musculoskeletal: Reports myalgias; Denies arthralgias or neck pain Integumentary Denies rash Neurologic Neurologic: Denies headache(s), paresthesias or weakness Psychiatric Psychiatric: Denies anxiety or depression Hematologic/Lymphatic Hematologic/Lymphatic: Denies easy bleeding or easy bruising Allergic/Immunologic Allergic/Immunologic ED: Denies mouth swelling or tongue swelling EXAM Physical Exam Const Vital Signs: 07/25/20 20:45 07/25/20 21:03 07/25/20 21:43 Temperature 97 F L Temperature Source Temporal Pulse Rate 65 Respiratory Rate 18 Respiratory Effort Short of Breath Respiratory Pattern Normal Blood Pressure 185/105 H Blood Pressure Mean 131 Pulse Ox 96 98 Oxygen Delivery Method Room Air Room Air Positive well nourished and well developed General Appearance ED: well developed HEENT Reports TM's clear and moist mucous membranes normocephalic and atraumatic Tympanic Membrane ED: Yes TM's clear Eyes PERRL and EOMs intact bilaterally Neck no lymphadenopathy, supple and no JVD Chest Wall inspection of chest normal Resp normal respiratory effort and clear to auscultation bilaterally Cardio regular rate, S1 normal heart sound, S2 normal heart sound and no murmurs Peripheral Pulses: pulses 2+ throughout GI soft to palpation, non-tender and non-distended Back/Spine no CVA tenderness and no thoracic nor lumbar tenderness Extremity normal to inspection Extremity Narrative: 2-3+ pitting edema in the left lower extremity. Tenderness to palpation on the medial lower posterior aspect. Strong palpable pulses. No palpable cord. No overlying skin changes. General Extremety ED: Yes edema; Negative for tenderness General Extremity: edema Neuro oriented x3, CN's II-XII intact bilaterally and no sensory deficits noted Sensorium / Orientation: alert Motor Exam: strength 5/5 throughout Psych mental status grossly normal Skin no rashes or lesions noted MDM MDM MDM Narrative Medical decision making narrative: Patient appears well nontoxic. Vital signs within normal limits. EKG shows a paced rhythm. No hypoxemia. Lab work within normal limits including a negative troponin. CTA of the chest shows no pulmonary embolism. There is concern for DVT of this left lower extremity given his unilateral swelling and posterior tenderness. Patient will be given subcutaneous Lovenox and return tomorrow for DVT study given the lack of coverage here at [facility] overnight. Patient advised to return for any worsening chest pain or shortness of breath. Patient agreeable and discharged home in stable condition. Lab Data Attestation: I reviewed the patient's lab results. Labs: Laboratory Results - last 24 hr 07/25/20 07/25/20 21:40 21:40 WBC 4.8 RBC 4.46 L Hgb 12.5 L Hct 39.3 L MCV 88.1 MCH 28.0 MCHC 31.8 L RDW Std Deviation 44.7 H RDW Coeff of Yen 13.8 Plt Count 194 MPV 10.0 Immature Gran % (Auto) 0.200 Neut % (Auto) 60.2 Lymph % (Auto) 21.6 [place] % (Auto) 11.3 H Eos % (Auto) 5.9 H Baso % (Auto) 0.8 Absolute Neuts (auto) 2.9 Absolute Lymphs (auto) 1.03 Nucleated RBC % 0 Sodium 139 Potassium 4.2 Chloride 106 Carbon Dioxide 29.0 Anion Gap 4 L BUN 21 H Creatinine 1.02 Estim Creat Clear Calc 63.57 Est GFR (MDRD) Af Amer 91 Est GFR (MDRD) Non-Af 75 BUN/Creatinine Ratio 20.6 H Glucose 112 H Calcium 8.7 Troponin I < 0.015 Radiography Diagnostic Testing: Radiology Impression Chest CTA 07/25/20 21:08 IMPRESSION: Negative CTA Chest. No acute pulmonary findings. Individualized dose optimization techniques were used for this CT. at 2255 Reported and signed by: Lyndon Juan MD Electronically Signed: Lyndon Juan MD at 22:54 EDT Tel , Service support , Rhythm Strip Rhythm Strip: Paced rhythm Rate: 61 Ectopy: None EKG Initial EKG: Attestation: I personally reviewed and interpreted this EKG as follows: Comments: AV dual paced rhythm at 61 bpm. No evidence of acute ischemia. Discharge Plan Triage Chief Complaint: Edema ED Provider: Kendrick Walton Dx/Rx/DC Orders Clinical Impression: Leg edema, left Instructions: ED Peripheral Edema, Unilateral Prescriptions: No Action pseudoephedrine HCl [Sudafed] 30 mg tablet 30 mg PO Q6H PRN (Reason: Allergy Symptoms) RF: 0 atorvastatin 40 mg tablet 40 mg PO QHS Qty: 90 RF: 3 metoprolol succinate 50 mg tablet extended release 24 hr 50 mg PO BID Qty: 180 RF: 3 lisinopril 40 mg tablet 40 mg PO DAILY Qty: 90 RF: 4 magnesium oxide 400 MG tablet 400 mg PO BID RF: 0 venlafaxine 37.5 MG tablet 37.5 mg PO TID RF: 0 gabapentin 300 MG capsule 300 mg PO TID RF: 0 cholecalciferol (vitamin D3) 1,000 UNIT capsule 1,000 unit PO DAILY RF: 0 alfuzosin 10 MG tablet extended release 24 hr 10 mg PO DINNER RF: 0 psyllium husk ([place]partame) 1 PACKET packet 1 packet PO DAILY PRN (Reason: Constipation) RF: 0 sennosides-docusate sodium 1 TABLET tablet 3 tab PO BID RF: 0 hydroxyzine pamoate 25 MG capsule 25 mg PO TID PRN PRN (Reason: Anxiety) Qty: 30 RF: 0 clonidine HCl 0.1 mg Tablet 0.1 mg PO DAILY PRN (Reason: Hypertension) RF: 0 alprazolam 0.5 mg Tablet 0.5 mg PO BID PRN (Reason: Hypertension) RF: 0 Narcan 4 mg/actuation [place],Non-Aerosol 4 mg INTRANASAL Q3M PRN (Reason: Hypertension) RF: 0 Primary Care Provider: Ramana Eckert Referrals: Ramana Eckert DO [Primary Care Provider] - 2 Days Disposition Disposition: Home, self care
[2020-07-25 21:43] VITALS: O2SAT 98
[2020-07-25 21:47] LABS: Absolute Lymphocyte Count 1.03 X10^3/uL (0.83-4.51); Absolute Neutrophil Count 2.9 X10^3/uL (2.0-7.7); Basophil# 0.04 X10^3/uL; Basophil% 0.8 % (0-1); Eosinophil# 0.28 X10^3/uL; Eosinophils% 5.9 % (0-5); Hematocrit 39.3 % (40-54); Hemoglobin 12.5 g/dL (13.0-16.5); Lymphocyte # 1.03 X10^3/ul (0.83-4.51); Lymphocyte % 21.6 % (19-41); Mean Corp Hgb Conc 31.8 g/dL (32-36); Mean Corpuscular Volume 88.1 fL (80-94); Monocyte# 0.54 X10^3/uL; Monocyte% 11.3 % (0-10); NRBC Flagged by Analyzer 0 % (0-5); Neutrophil # 2.86 X10^3/uL (2.7-7.7); Neutrophil % 60.2 % (47-70); Platelet Count 194 K/mm3 (150-450); RBC Distribution Width CV 13.8 % (11.6-14.6); RBC Distribution Width SD 44.7 fl (35.1-43.9); Red Blood Count 4.46 M/mm3 (4.6-6.2); White Blood Count 4.8 K/mm3 (4.4-11.0)
[2020-07-25 22:04] LABS: Anion Gap 4 (5-15); BUN 21 mg/dL (7-18); BUN/Creat Ratio 20.6 RATIO (10-20); Calcium,Total 8.7 mg/dL (8.5-10.1); Chloride 106 mmol/L (98-107); Creatinine, Serum 1.02 mg/dL (0.70-1.30); EST Glomerular Filtration Rate 75 mL/min (>60); Est Glom Filt Rate - Afr Amer 91 mL/min (>60); Estimated Creatinine Clearance 63.57 ml/min; Glucose 112 mg/dL (74-106); Potassium 4.2 mmol/L (3.5-5.1); Sodium Level 139 mmol/L (136-145)
--- NOTE | 2020-07-25 22:29 | NURSING ---
Waiting on results for med as patient did not tell doctor about the sob and told this nurse so plans were changed and results are still pending
[2020-07-25] MEDS: Enoxaparin 100 MG/ML Syringe 90 MG SC (23:22)
[2020-07-25 23:25] VITALS: BP 166/87; PULSE 60; RESP 15; TEMP 36.6; O2SAT 97
[2020-07-25 23:28] VITALS: BP 166/87; PULSE 74; RESP 16; O2SAT 98
== END 2020-07-25 23:33 | disposition home or self-care (01) ==
PROVIDERS: Emergency Provider Emergency Medicine; PCP Student in an Organized Health Care Education/Training Program
DX: R60.0 Localized edema (principal); F32.9 Major depressive disorder, single episode, unspecified; F41.9 Anxiety disorder, unspecified; M19.90 Unspecified osteoarthritis, unspecified site; I10 Essential (primary) hypertension; E78.5 Hyperlipidemia, unspecified; E66.9 Obesity, unspecified; E11.9 Type 2 diabetes mellitus without complications; Z86.73 Personal history of transient ischemic attack (TIA), and cerebral infarction without residual deficits; Z79.899 Other long term (current) drug therapy
CPT/HCPCS: 71275; 80048; 84484; 85025; 93005; 96372; 99284; Q9967; A4216

== ENCOUNTER → 2020-07-26 10:07 | Outpatient (CLI) | payer MEDICARE, OTHER, SELFPAY ==
[2020-07-25 20:45] VITALS: BMI 27.1
--- NOTE | 2020-07-26 10:09 | VDLE_ITS ---
Reason For Study: Swelling Procedure LEFT This is a venous duplex using B-mode, color GSV is normal. flow and spectral Doppler. CFV is compressible, spontaneous, phasic, Exam performed in department. competent, and demonstrates normal A preliminary report was called and/or faxed augmentation. to Dr. Eckert. FV is compressible, spontaneous, phasic, competent and demonstrates normal augmentation. POP V is compressible, spontaneous, phasic, competent and demonstrates normal augmentation. T/P Trunk is compressible. PTV is compressible. LT PerV is compressible. Difficult to visualize calf veins. VL/Venous Duplex US, Unilateral Interpretation Summary Deep veins of the left lower extremity are patent and compressible segmentally. There is no evidence of left lower extremity deep vein thrombosis. Valvular competence appears intac t within the proximal deep venous system on the left . The left great saphenous vein appears patent a nd compressible segmentally. The deep veins of the left calf were not well visualized. Ordering Physician: Kendrick Walton Referring Physician: Ramana Eckert Performed By: Leah Espinosa, RAFFAELECS, RVT
== END ==
PROVIDERS: PCP Student in an Organized Health Care Education/Training Program; Referring Provider Emergency Medicine; Visit Provider Emergency Medicine
DX: M79.89 Other specified soft tissue disorders (principal)
CPT/HCPCS: 93971

== ENCOUNTER 2020-08-14 12:59 | Inpatient (IN) | payer MEDICARE, OTHER, SELFPAY ==
[2020-08-14] VITALS (12 sets, daily range): BP systolic 82–194; BP diastolic 51–83; PULSE 62–76; RESP 16–18; TEMP 35.7–36.7; O2SAT 87–99; BMI 28.7; BMI 27.9
--- NOTE | 2020-08-14 13:11 | EKG12_ITS ---
Test Reason : FALL Blood Pressure : / mmHG Vent. Rate : 069 BPM Atrial Rate : 069 BPM P-R Int : 184 ms QRS Dur : 188 ms QT Int : 494 ms P-R-T Axes : 009 -73 087 degrees QTc Int : 529 ms Atrial-sensed ventricular-paced rhythm Abnormal ECG Confirmed by DAMIEN MERCER, ELIJAH ([id number]), writer editor LUIS DUARTE ([id number]) on 08/17/2020 1:47:51 PM Referred By: CLAYTON Confirmed By:LEIJAH QUEZADA MD
--- NOTE | 2020-08-14 13:11 | CT_ITS ---
STUDY: CT BRAIN WITHOUT CONTRAST REASON FOR EXAM: Male, 80 years old. head trauma RADIATION DOSAGE (If Supplied By Facility): CTDIvol = ( 44.99 ) mGy, DLP = ( 880.47 ) mGycm TECHNIQUE: Transaxial CT imaging of the brain was performed without administration of intravenous contrast material. Individualized dose optimization techniques were used for this CT. COMPARISON: 04/14/2019 FINDINGS: Normal soft tissue structures. Normal calvarium. There is moderate cerebral atrophy with widening of the extra-axial spaces and ventricular dilatation. Normal white matter tracts of the cerebral hemispheres. Normal basal ganglia and thalami. Normal brainstem. Normal cerebellum. There is no intracranial hemorrhage. Encephalomalacia within the left occipital lobe consistent with a chronic infarct. Normal visualized paranasal sinuses. CT/Brain/Head without Contrast IMPRESSION: Chronic involutional changes of the brain. Electronically Signed: Ramses Reinoso MD at 14:08 EDT Tel , Service support ,
--- NOTE | 2020-08-14 13:14 | ED.VIS.FALL ---
HPI HPI - Fall History of Present Illness Chief Complaint: Fall Detail of Chief Complaint: Fall x2 today Informant: patient Narrative Narrative: Patient presents to the emergency department via EMS after sustaining 2 falls today. Patient apparently had gone on a walk around 9 AM and felt lightheaded and dizzy prior to crossing the road but then states that his legs gave out and he fell striking his face on the ground. Bystanders stopped to help him and EMS was called and at that time he refused transport so they took him home. While at home patient had another fall after feeling lightheaded. She he denies chest pain or shortness of breath. Patient really denies complaints otherwise. His daughter came to check on him and he seemed somewhat less responsive and more somnolent than usual and she called EMS to bring him in to get evaluated. He is not had any recent illness. Unsure of his last tetanus shot. Patient denies head or neck pain. He denies chest or abdomen pain. Tetanus Immunization: Unknown Prior similar symptoms: No PFSH PFSH Medical History Anxiety and depression Atrioventricular block, Mobitz type 2 Atrioventricular omar re-entry tachycardia BPH (benign prostatic hyperplasia) Chronic osteoarthritis Chronic pain Diet-controlled type 2 diabetes mellitus Elevated cortisol level Essential (primary) hypertension History of CVA (cerebrovascular accident) (10/17/14) Hyperlipidemia Methicillin resistant Staphylococcus aureus infection Nonobstructive atherosclerosis of coronary artery Nonrheumatic tricuspid valve regurgitation Obesity Right bundle branch block Secondary pulmonary arterial hypertension Stroke/cerebrovascular accident Stroke/cerebrovascular accident Type II diabetes mellitus, uncontrolled Home Medications alfuzosin 10 mg PO DINNER 08/15/16 [History Last Taken Unknown] cholecalciferol (vitamin D3) 1,000 unit PO DAILY 08/15/16 [History Last Taken Unknown] gabapentin 300 mg PO BID 08/15/16 [History Last Taken 10/02/17 08:00 300 MG] magnesium oxide 800 mg PO BID 08/15/16 [History Last Taken Unknown] psyllium husk (aspartame) 1 packet PO DAILY PRN 08/15/16 [History Last Taken Unknown] venlafaxine 37.5 mg PO TID 08/15/16 [History Last Taken Unknown] sennosides-docusate sodium 3 tab PO QHS 04/14/19 [History Last Taken Unknown] atorvastatin 40 mg tablet 40 mg PO QHS #90 tab 10/14/19 [Rx Last Taken Unknown] lisinopril 40 mg tablet 40 mg PO DAILY #90 tab 10/14/19 [Rx Last Taken Unknown] metoprolol succinate 50 mg tablet,extended release 24 hr 50 mg PO BID #180 tab 10/14/19 [Rx Last Taken Unknown] pseudoephedrine HCl 30 mg tablet 30 mg PO Q6H PRN tab 10/14/19 [History Last Taken Unknown] alprazolam 0.5 mg PO BID PRN 07/25/20 [History Last Taken Unknown] melatonin 5 - 10 mg PO QHS PRN 07/25/20 [History Last Taken Unknown] naloxone [Narcan] 4 mg INTRANASAL Q3M PRN 07/25/20 [History Last Taken Unknown] prazosin 2 mg PO QHS 07/25/20 [History Last Taken Unknown] docusate calcium [Stool Softener (docusate alea)] 240 mg PO TID 08/14/20 [History Last Taken Unknown] hydroxyzine pamoate 25 mg PO 4X/DAY 08/14/20 [History Last Taken Unknown] Allergy/AdvReac Type Severity Reaction Status Date / Time ibuprofen AdvReac Intermediate Other Verified 08/14/20 13:01 levofloxacin [From Levaquin] AdvReac Other Verified 08/14/20 13:01 Family History Father Prostate cancer Mother Hypertension Thyroid disorder CVA (cerebral vascular accident) CAD (coronary artery disease) Surgical History History of back surgery (06/24/07) History of left heart catheterization (02/2005) History of left knee replacement 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) History of revision of total replacement of right knee joint (01/25/16) History of tonsillectomy and adenoidectomy History of total right knee replacement (10/07/09) Social History Smoking Status: Never smoker alcohol intake: never caffeine: Yes Type: tea ROS ROS ED Constitutional Constitutional ED: Reports systems reviewed and no addt'l complaints, except as documented; Denies body ache(s), change in weight or chills Eyes Eyes: Denies acute decrease in peripheral vision, change in vision, double vision or loss of vision ENT ENT ED: Reports none; Denies ear pain, lip swelling, loss taste/smell, neck pain, otalgia or sore throat Cardiovascular Cardiovascular: Reports none; Denies abdominal pain, chest pain with activity, leg edema, lightheadedness, palpitations, rapid heart rate or syncope Respiratory/Chest Respiratory/Chest: Reports none; Denies change in mental status, dry cough, dyspnea, hemoptysis, shortness of breath at rest or shortness of breath with exertion Gastrointestinal Gastrointestinal: Reports none; Denies abdominal pain, change in stool character, diarrhea, hematemesis, hematochezia, melena, rectal bleeding or vomiting Genitourinary Genitourinary ED: Reports none; Denies abdominal discomfort, anuria, dysuria, genital pain or polyuria Musculoskeletal Musculoskeletal: Reports none; Denies arthralgias, back pain, difficulty walking, extremity pain, muscle weakness or myalgias Integumentary Reports none and Abrasions; Denies abscess or rash Neurologic Neurologic: Reports none and other Details: Dizziness and frequent falls ; Denies abnormal gait, confusion, focal weakness, frequent falls, headache(s), loss of vision, numbness, paresthesias, radicular pain, vertigo or weakness Psychiatric Psychiatric: Reports systems reviewed and no addt'l complaints, except as documented and none; Denies behavioral changes, confusion, difficulty concentrating, hallucinations, suicidal ideation, tactile hallucinations or visual hallucinations Endocrine Endocrinology: Denies none, cold intolerance, excessive sweating, fatigue or heat intolerance Hematologic/Lymphatic Hematologic/Lymphatic: Reports none; Denies anemia, easy bleeding or easy bruising Allergic/Immunologic Allergic/Immunologic ED: Denies as per HPI, none, lip swelling, mouth swelling, throat swelling, tongue swelling or hives EXAM Physical Exam Const Vital Signs: 08/14/20 13:01 08/14/20 13:04 08/14/20 13:13 Temperature 96.2 F L Temperature Source Temporal Pulse Rate 74 Pulse Rate [Lying] Pulse Rate [Sitting] Pulse Rate [Standing] Respiratory Rate 18 Blood Pressure 90/57 L Blood Pressure [Lying] Blood Pressure [Sitting] Blood Pressure [Standing] Blood Pressure Mean 68 Blood Pressure Mean [Lying] Blood Pressure Mean [Sitting] Blood Pressure Mean [Standing] Pulse Ox 91 87 92 Oxygen Delivery Method Room Air Room Air Nasal Cannula Oxygen Flow Rate (L/min) 2 08/14/20 14:18 Temperature Temperature Source Pulse Rate Pulse Rate [Lying] 68 Pulse Rate [Sitting] 66 Pulse Rate [Standing] 70 Respiratory Rate Blood Pressure Blood Pressure [Lying] 99/58 L Blood Pressure [Sitting] 82/53 L Blood Pressure [Standing] 95/51 L Blood Pressure Mean Blood Pressure Mean [Lying] 71 Blood Pressure Mean [Sitting] 62 Blood Pressure Mean [Standing] 65 Pulse Ox Oxygen Delivery Method Oxygen Flow Rate (L/min) Positive well nourished and well developed General Appearance ED: well developed and NAD HEENT Reports TM's clear and moist mucous membranes HEENT Narrative: Patient with multiple abrasions to the right forehead and the right side of face. normocephalic; Negative for trauma or tenderness Tympanic Membrane ED: Yes TM's clear Eyes PERRL and EOMs intact bilaterally General Eye ED: Negative for pale conjunctiva or scleral icterus Neck no lymphadenopathy, supple and no JVD General: Negative for tenderness Chest Wall inspection of chest normal and palpation of chest normal Chest: Negative for tenderness Resp normal respiratory effort and clear to auscultation bilaterally Effort and Inspection: Negative for respiratory distress or pain with movement Auscultation: Negative for rhonchi, wheezes or diminished lung sounds Cardio regular rate, regular rhythm, S1 normal heart sound, S2 normal heart sound and no murmurs Peripheral Pulses: pulses 2+ throughout GI normal to inspection, nondistended, normoactive bowel sounds, soft to palpation, non-tender, non-distended and no masses Back/Spine no CVA tenderness and no thoracic nor lumbar tenderness Extremity normal to inspection General Extremety ED: Negative for edema General Extremity: Negative for edema Right Upper Extremity: wrist other (Patient has diffuse soft tissue swelling about the right wrist with some mild diffuse tenderness on palpation.) Neuro oriented x3, CN's II-XII intact bilaterally, no sensory deficits noted and gait normal Sensorium / Orientation: awake, alert, oriented to person, oriented to place and oriented to time Motor Exam: strength 5/5 throughout and strength abnormal Psych mental status grossly normal Skin no rashes or lesions noted and no wounds Skin Narrative: Patient with abrasions to right side of head and face. He has abrasions to his hands bilaterally. Trauma: abrasion MDM MDM MDM Narrative Medical decision making narrative: Hypotensive in the emergency department with noted acute kidney injury. He was given a liter normal same fluid bolus. Patient will be admitted to the hospital. Lab Data Labs: Laboratory Results - last 24 hr 08/14/20 08/14/20 08/14/20 13:45 13:45 13:45 WBC 7.3 RBC 4.00 L Hgb 10.9 L Hct 34.2 L MCV 85.5 MCH 27.3 MCHC 31.9 L RDW Std Deviation 43.8 RDW Coeff of Yen 14.0 Plt Count 173 MPV 11.3 Immature Gran % (Auto) 0.300 Neut % (Auto) 79.5 H Lymph % (Auto) 8.7 L Davis % (Auto) 9.0 Eos % (Auto) 2.1 Baso % (Auto) 0.4 Absolute Neuts (auto) 5.8 Absolute Lymphs (auto) 0.63 L Nucleated RBC % 0 Sodium 138 Potassium 3.0 L Chloride 101 Carbon Dioxide 31.0 Anion Gap 6 BUN 42 H Creatinine 2.43 H Estim Creat Clear Calc 26.68 Est GFR (MDRD) Af Amer 33 L Est GFR (MDRD) Non-Af 28 L BUN/Creatinine Ratio 17.3 Glucose 165 H Calcium 8.0 L Troponin I 0.043 Ethyl Alcohol < 3.0 Radiography Diagnostic Testing: Radiology Impression Brain CT 08/14/20 13:11 IMPRESSION: Chronic involutional changes of the brain. Electronically Signed: Ramses Reinoso MD at 14:08 EDT Tel , Service support , Chest X-Ray 08/14/20 13:35 IMPRESSION: No active disease. Electronically Signed: Ramses Reinoso MD at 14:10 EDT Tel , Service support , Wrist X-Ray 08/14/20 13:35 IMPRESSION: 1. No acute fracture or dislocation. 2. Scapholunate advanced collapse (SLAC wrist). Electronically Signed: Ramses Reinoso MD at 14:13 EDT Tel , Service support , 1 view chest x-ray obtained interpreted by myself as no acute disease process. Radiology in agreement. X-rays of the right wrist 3 views obtained interpreted by myself as no acute fractures. He was noted to have degenerative changes at the first MCP joint and degenerative changes of the scaphoid. Radiology in agreement. EKG Initial EKG: Comments: Ventricularly paced rhythm with a ventricular rate of 69 bpm Discharge Plan Triage Chief Complaint: Fall ED Provider: Cesar Swan Dx/Rx/DC Orders Clinical Impression: Dizziness, Acute hypotension, Acute kidney injury, Falls, Closed head injury Prescriptions: No Action pseudoephedrine HCl [Sudafed] 30 mg tablet 30 mg PO Q6H PRN (Reason: Allergy Symptoms) RF: 0 atorvastatin 40 mg tablet 40 mg PO QHS Qty: 90 RF: 3 metoprolol succinate 50 mg tablet extended release 24 hr 50 mg PO BID Qty: 180 RF: 3 lisinopril 40 mg tablet 40 mg PO DAILY Qty: 90 RF: 4 magnesium oxide 400 MG tablet 800 mg PO BID RF: 0 venlafaxine 37.5 MG tablet 37.5 mg PO TID RF: 0 gabapentin 300 MG capsule 300 mg PO BID RF: 0 cholecalciferol (vitamin D3) 1,000 UNIT capsule 1,000 unit PO DAILY RF: 0 alfuzosin 10 MG tablet extended release 24 hr 10 mg PO DINNER RF: 0 psyllium husk (aspartame) 1 PACKET packet 1 packet PO DAILY PRN (Reason: Constipation) RF: 0 sennosides-docusate sodium 1 TABLET tablet 3 tab PO QHS RF: 0 alprazolam 0.5 mg Tablet 0.5 mg PO BID PRN (Reason: Anxiety) RF: 0 Narcan 4 mg/actuation [place],Non-Aerosol 4 mg INTRANASAL Q3M PRN (Reason: reversal) RF: 0 prazosin 2 mg Capsule 2 mg PO QHS RF: 0 melatonin 5 mg Tablet 5 - 10 mg PO QHS PRN (Reason: Insomnia) RF: 0 docusate calcium [Stool Softener (docusate alea)] 240 mg Capsule 240 mg PO TID RF: 0 hydroxyzine pamoate 25 MG capsule 25 mg PO 4X/DAY RF: 0 Primary Care Provider: Ramana Eckert Referrals: Ramana Eckert DO [Primary Care Provider] - Disposition Disposition: Acute Care Hospital [facility]
[2020-08-14] MEDS: 0.9% Normal Saline 1,000 ML 1000 ML IV (13:16)
[2020-08-14] MEDS: Diphth,Pertuss(Acell),Tet Vac 0.5 ML Vial IM (13:20)
--- NOTE | 2020-08-14 13:35 | RAD_ITS ---
STUDY: X-RAY CHEST REASON FOR EXAM: Male, 80 years old. hypotension TECHNIQUE: Single AP portable view of the chest. COMPARISON: 04/14/2019 FINDINGS: Left subclavian dual-lead pacemaker which is unchanged. The lungs are clear and expanded. Elevated right hemidiaphragm which is unchanged. Normal size heart. Normal mediastinum and btezy. Normal visualized pulmonary arteries. Normal visualized aortic arch and descending thoracic aorta. Normal visualized thoracic spine. Normal visualized ribs, clavicles, and shoulders. There is no demonstrated abnormality of the visualized soft tissue structures of the upper abdomen. RAD/Chest 1 View (Portable) IMPRESSION: No active disease. Electronically Signed: Ramses Reinoso MD at 14:10 EDT Tel , Service support ,
--- NOTE | 2020-08-14 13:35 | RAD_ITS ---
STUDY: X-RAY - RIGHT WRIST REASON FOR EXAM: Male, 80 years old. injury fall, pain TECHNIQUE: 3 view(s) of the wrist were obtained. COMPARISON: None. FINDINGS: Normal visualized distal radius and ulna. There is degenerative arthrosis of the radiocarpal articulation. Normal distal radioulnar articulation. Normal carpal bones. Widening the scapholunate interval with the proximal migration of the capitate consistent with scapholunate advanced collapse. Normal carpometacarpal articulation of the thumb. Normal second through fifth carpometacarpal articulations. Normal visualized metacarpal bones. The soft tissue structures are unremarkable. RAD/Wrist min 3 Views IMPRESSION: 1. No acute fracture or dislocation. 2. Scapholunate advanced collapse (SLAC wrist). Electronically Signed: Ramses Reinoso MD at 14:13 EDT Tel , Service support ,
[2020-08-14 13:51] LABS: Absolute Lymphocyte Count 0.63 X10^3/uL (0.83-4.51); Absolute Neutrophil Count 5.8 X10^3/uL (2.0-7.7); Basophil# 0.03 X10^3/uL; Basophil% 0.4 % (0-1); Eosinophil# 0.15 X10^3/uL; Eosinophils% 2.1 % (0-5); Hematocrit 34.2 % (40-54); Hemoglobin 10.9 g/dL (13.0-16.5); Lymphocyte # 0.63 X10^3/ul (0.83-4.51); Lymphocyte % 8.7 % (19-41); Mean Corp Hgb Conc 31.9 g/dL (32-36); Mean Corpuscular Hgb 27.3 pg (27.0-32.0); Mean Corpuscular Volume 85.5 fL (80-94); Mean Platelet Vol. 11.3 fl (6.2-12.0); Monocyte# 0.65 X10^3/uL; NRBC Flagged by Analyzer 0 % (0-5); Neutrophil # 5.78 X10^3/uL (2.7-7.7); Neutrophil % 79.5 % (47-70); Platelet Count 173 K/mm3 (150-450); RBC Distribution Width SD 43.8 fl (35.1-43.9); White Blood Count 7.3 K/mm3 (4.4-11.0)
[2020-08-14 14:07] LABS: Anion Gap 6 (5-15); BUN 42 mg/dL (7-18); BUN/Creat Ratio 17.3 RATIO (10-20); Chloride 101 mmol/L (98-107); Creatinine, Serum 2.43 mg/dL (0.70-1.30); EST Glomerular Filtration Rate 28 mL/min (>60); Est Glom Filt Rate - Afr Amer 33 mL/min (>60); Estimated Creatinine Clearance 26.68 ml/min; Glucose 165 mg/dL (74-106); Sodium Level 138 mmol/L (136-145)
[2020-08-14 14:21] LABS: Alcohol, Blood (Medical)-Serum < 3.0 mg/dL
--- NOTE | 2020-08-14 14:34 | PCM.HP.STD ---
HPI - General General Date of Admission: 08/14/20 HPI Narrative PATRICK PADGETT, is a 80 M with an extensive PMH as outlined who presents with a complaint of mechanical fall x 2. He fell whilst out for a walk today, after he felt dizzy and lightheaded and his legs just gave out and he fell. He hit his face. He wasnt willing to go to the ER at that time, so the EMS took him home. While t home, he had another fall after feeling lightheaded again. He denied any chest pain, palpitaitons, shortness of breath, nausea or vomiting. Daughter convinced him to come in to the ED. CT of hte brain in the ED was negative, and vitals showed low BP with systolic going down to the 80s. He was started on lasix ~ 1 week ago o/a of lower extremity swelling. On arrival, WBC was 1.3 and hemoglobin was 10.9 with platelets of 173. BMP showed sodium of 138 with potassium of 3 and creatinine of 2.43 with a creatinine checked on 07/25/2020 being 1.02. EKG showed no acute ST changes. He has been admitted to be managed for mechanical fall and JEREMY likely due to overdiuresis. FORMERLY [facility], [facility] Medical History Anxiety and depression Atrioventricular block, Mobitz type 2 Atrioventricular omar re-entry tachycardia BPH (benign prostatic hyperplasia) Chronic osteoarthritis Chronic pain Diet-controlled type 2 diabetes mellitus Elevated cortisol level Essential (primary) hypertension History of CVA (cerebrovascular accident) (10/17/14) Hyperlipidemia Methicillin resistant Staphylococcus aureus infection Nonobstructive atherosclerosis of coronary artery Nonrheumatic tricuspid valve regurgitation Obesity Right bundle branch block Secondary pulmonary arterial hypertension Stroke/cerebrovascular accident Stroke/cerebrovascular accident Type II diabetes mellitus, uncontrolled Home Medications alfuzosin 10 mg PO DINNER 08/15/16 [History Last Taken 08/13/20] cholecalciferol (vitamin D3) 1,000 unit PO DAILY 08/15/16 [History Last Taken 08/14/20] gabapentin 300 mg PO TID 08/15/16 [History Last Taken 08/14/20] psyllium husk (aspartame) 1 packet PO DAILY PRN 08/15/16 [History Last Taken 08/14/20] venlafaxine 37.5 mg PO TID 08/15/16 [History Last Taken 08/14/20] sennosides-docusate sodium 1 tab PO TID 04/14/19 [History Last Taken 08/14/20] atorvastatin 40 mg tablet 40 mg PO QHS #90 tab 10/14/19 [Rx Last Taken 08/13/20] lisinopril 40 mg tablet 40 mg PO DAILY #90 tab 10/14/19 [Rx Last Taken 08/14/20] metoprolol succinate 50 mg tablet,extended release 24 hr 50 mg PO BID #180 tab 10/14/19 [Rx Last Taken 08/14/20] alprazolam 0.5 mg PO BID PRN 07/25/20 [History Last Taken 08/14/20] melatonin 5 - 10 mg PO QHS PRN 07/25/20 [History Last Taken Unknown] naloxone [Narcan] 4 mg INTRANASAL Q3M PRN 07/25/20 [History Last Taken Unknown] prazosin 2 mg PO QHS 07/25/20 [History Last Taken 08/13/20] furosemide 40 mg PO DAILY 08/14/20 [History Last Taken 08/14/20] hydroxyzine pamoate 25 mg PO TID 08/14/20 [History Last Taken 08/14/20] oxycodone 5 mg PO BID 08/14/20 [History Last Taken 08/14/20] Allergy/AdvReac Type Severity Reaction Status Date / Time ibuprofen AdvReac Intermediate Other Verified 08/14/20 13:01 levofloxacin [From Levaquin] AdvReac Other Verified 08/14/20 13:01 Family History Father Prostate cancer Mother Hypertension Thyroid disorder CVA (cerebral vascular accident) CAD (coronary artery disease) Surgical History History of back surgery (06/24/07) History of left heart catheterization (02/2005) History of left knee replacement 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) History of revision of total replacement of right knee joint (01/25/16) History of tonsillectomy and adenoidectomy History of total right knee replacement (10/07/09) Social History Smoking Status: Never smoker alcohol intake: never caffeine: Yes Type: tea ROS Constitutional Constitutional: Reports malaise and weakness; Denies anorexia, change in weight, chills or fatigue Eyes Eyes: Denies blurry vision ENT HEENT: Denies headache(s) or sore throat Cardiovascular Cardiovascular: Reports lightheadedness; Denies chest pain, dyspnea on exertion, edema, orthopnea, palpitations, rapid heart rate or syncope Respiratory/Chest Respiratory/Chest: Denies cough, dyspnea, shortness of breath at rest or shortness of breath with exertion Gastrointestinal Gastrointestinal: Denies abdominal pain, diarrhea, loose stools, nausea or vomiting Genitourinary Genitourinary: Denies burning urination Musculoskeletal Musculoskeletal: Denies arthralgias Neurologic Neurologic: Denies abnormal gait or confusion Psychiatric Psychiatric: Denies anxiety Endocrine Endocrinology: Denies change in body appearance Hematologic/Lymphatic Hematologic/Lymphatic: Denies anemia Allergic/Immunologic Allergic/Immunologic: Denies asthma Vital Signs Vital Signs Vital Signs: 08/14/20 13:01 08/14/20 13:04 08/14/20 13:13 Temperature 96.2 F L Temperature Source Temporal Pulse Rate 74 Pulse Rate [Lying] Pulse Rate [Sitting] Pulse Rate [Standing] Respiratory Rate 18 Blood Pressure 90/57 L Blood Pressure [Lying] Blood Pressure [Sitting] Blood Pressure [Standing] Blood Pressure Mean 68 Blood Pressure Mean [Lying] Blood Pressure Mean [Sitting] Blood Pressure Mean [Standing] Pulse Ox 91 87 92 Oxygen Delivery Method Room Air Room Air Nasal Cannula Oxygen Flow Rate (L/min) 2 08/14/20 14:18 Temperature Temperature Source Pulse Rate Pulse Rate [Lying] 68 Pulse Rate [Sitting] 66 Pulse Rate [Standing] 70 Respiratory Rate Blood Pressure Blood Pressure [Lying] 99/58 L Blood Pressure [Sitting] 82/53 L Blood Pressure [Standing] 95/51 L Blood Pressure Mean Blood Pressure Mean [Lying] 71 Blood Pressure Mean [Sitting] 62 Blood Pressure Mean [Standing] 65 Pulse Ox Oxygen Delivery Method Oxygen Flow Rate (L/min) Weight Weight: 205 lb 14.588 oz Body Mass Index (BMI) 28.7 Physical Exam Const alert, oriented x3 and no apparent distress General Appearance: cooperative HEENT normocephalic HEENT Narrative: bruises on face from mechanical fall Eyes PERRL, EOMs intact bilaterally and conjunctivae normal Neck no lymphadenopathy, supple and no JVD Resp normal respiratory effort Cardio regular rate, regular rhythm, S1 normal heart sound, S2 normal heart sound and no murmurs GI normal to inspection, nondistended, normoactive bowel sounds, soft to palpation, non-tender and non-distended Extremity normal to inspection, full ROM and no clubbing, cyanosis or edema Peripheral Pulses: Yes pulses 2+ throughout Skin Skin Narrative: has superficial bruising over right side of his face and right hand due to mechanical fall. Neuro oriented x3 Sensorium / Orientation: awake and alert Psych affect normal Lab / Micro Data Result Diagrams: 08/15/20 05:20 08/15/20 05:20 Labs: Laboratory Results - last 24 hr 08/14/20 08/14/20 08/14/20 13:45 13:45 13:45 WBC 7.3 RBC 4.00 L Hgb 10.9 L Hct 34.2 L MCV 85.5 MCH 27.3 MCHC 31.9 L RDW Std Deviation 43.8 RDW Coeff of Yen 14.0 Plt Count 173 MPV 11.3 Immature Gran % (Auto) 0.300 Neut % (Auto) 79.5 H Lymph % (Auto) 8.7 L Bee % (Auto) 9.0 Eos % (Auto) 2.1 Baso % (Auto) 0.4 Absolute Neuts (auto) 5.8 Absolute Lymphs (auto) 0.63 L Nucleated RBC % 0 Sodium 138 Potassium 3.0 L Chloride 101 Carbon Dioxide 31.0 Anion Gap 6 BUN 42 H Creatinine 2.43 H Estim Creat Clear Calc 26.68 Est GFR (MDRD) Af Amer 33 L Est GFR (MDRD) Non-Af 28 L BUN/Creatinine Ratio 17.3 Glucose 165 H Calcium 8.0 L Troponin I 0.043 Ethyl Alcohol < 3.[address] 08/14/20 13:11 IMPRESSION: Chronic involutional changes of the brain. Electronically Signed: Ramses Reinoso MD at 14:08 EDT Tel , Service support , Chest X-Ray 08/14/20 13:35 IMPRESSION: No active disease. Electronically Signed: Ramses Reinoso MD at 14:10 EDT Tel , Service support , Wrist X-Ray 08/14/20 13:35 IMPRESSION: 1. No acute fracture or dislocation. 2. Scapholunate advanced collapse (SLAC wrist). Electronically Signed: Ramses Reinoso MD at 14:13 EDT Tel , Service support , Assessment & Plan Assessment/Plan (1) Dizziness: (2) Acute hypotension: (3) Acute kidney injury: (4) Falls: (5) Closed head injury: PLAN: #JEREMY likely due to overdiuresis Cr is 2.43 today, was ~ 1 2 weeks ago Was started on Lasix about a week ago for lower extremity edema. Will hold Lasix. JEREMY is likely prerenal due to overdiuresis. Hydrate with IV fluids. If creatinine does not improve, will do full work-up including urine electrolytes and urine lysis as well as renal ultrasound Hold all nephrotoxic medications. check orthostatics #Debility due to Mechanical fall Likely due to hypotension. Hydrate with IV fluids. Fall precautions. PT OT consult. Has a pacemaker in place. Will need interrogation as it was last interrogated a year ago #Hypotension due to overdiuresis Hold Lasix and BP meds. Hydrate with IV fluids. #Hyperlipidemia: On statin DVT prophylaxis: Lovenox renally dosed. COde status: full code Patient was with his daughter and was counseled extensively about differences between full code, DNR CCA and DNR CCA. Patient elects to be full code. Visit Charges Inpatient E&M: 04634 Init Hosp L3 Procedures Hospitalists Procedures: [id number] Advncd Care Plan 30 Min
[2020-08-14] MEDS: 0.9% Normal Saline 1,000 ML 150 ML IV ×2 (14:42→19:55)
[2020-08-14 17:57] LABS: Bacteria 0 SEEN /hpf (None Seen); Mucous, Urine 0 SEEN /hpf (<or=2+); Squamous Epithelial Cells - UA 0 SEEN /hpf (0-5)
[2020-08-14 18:01] LABS: Color, Urine Yellow (Yellow); Glucose, Dipstick Normal (Normal); Ketone-Dipstick Negative (Negative); Leukocyte Esterase-Dipstick Negative /ul (Negative); Nitrite-Dipstick Negative (Negative); Occult Blood-Urine 25 /ul (Negative); Protein-Dipstick 30 mg/dl (Negative); Urine Bilirubin Dipstick Negative (Negative); Urine Clarity Clear (Clear); Urine Urobilinogen Normal (Normal)
[2020-08-14 18:09] LABS: Red Blood Cells-Urine 0-5 SEEN /hpf (0-5); White Blood Cells 0-5 SEEN /hpf (0-5)
[2020-08-14 18:10] LABS: Hyaline Cast 25-50 SEEN /lpf (0-5)
[2020-08-14] MEDS: oxyCODONE 5 MG Tablet PO (19:52)
[2020-08-14] MEDS: Potassium Chloride 10mEq/100mL 10 MEQ/100 ML IV.SOLN. 100 MEQ IV BOLUS (19:55)
--- NOTE | 2020-08-14 20:35 | NURSING ---
pt yelling and getting very agitated with SANITATION MANAGER and this RN. pt yelling and threatening to rip out his IV if we do not turn off his Kriter. pt only recieved about half a bag of 1 kriter. Dickson Guzman contacted and switched to PO potassium.
[2020-08-14] MEDS: BENZOCAINE/MENTHOL 1 LOZENGE MUCOUS MEM ×2 (20:50→23:14)
[2020-08-14] MEDS: hydrOXYzine PAM 25 MG Capsule PO (21:02)
[2020-08-14] MEDS: Atorvastatin Calcium 40 MG Tablet PO (21:02)
[2020-08-14] MEDS: Potassium Chloride Oral Tablet 20 MEQ 60 MEQ PO (21:02)
[2020-08-14] MEDS: Gabapentin 300 MG Capsule PO (21:02)
[2020-08-14] MEDS: Venlafaxine HCl 25 MG Tablet 37.5 MG PO (21:02)
[2020-08-14] MEDS: ALPRAZolam 0.5 MG Tablet PO (23:14)
[2020-08-14] MEDS: MELATONIN 10 MG TABLET 5 MG PO (23:14)
[2020-08-14] MEDS: hydrALAZINE 20 MG/ML Vial 5 MG IV (23:26)
[2020-08-15] VITALS (16 sets, daily range): BP systolic 134–219; BP diastolic 70–121; PULSE 68–103; RESP 18–20; TEMP 36.6–37.1; O2SAT 93–96
[2020-08-15] MEDS: 0.9% Normal Saline 1,000 ML 150 ML IV ×4 (02:06→21:29)
[2020-08-15] MEDS: hydrOXYzine PAM 25 MG Capsule PO ×3 (05:34→21:28)
[2020-08-15] MEDS: Venlafaxine HCl 25 MG Tablet 37.5 MG PO ×3 (05:34→21:28)
[2020-08-15 06:03] LABS: Absolute Lymphocyte Count 0.69 X10^3/uL (0.83-4.51); Absolute Neutrophil Count 3.8 X10^3/uL (2.0-7.7); Basophil# 0.02 X10^3/uL; Basophil% 0.4 % (0-1); Eosinophil# 0.12 X10^3/uL; Eosinophils% 2.3 % (0-5); Hematocrit 35.1 % (40-54); Hemoglobin 10.9 g/dL (13.0-16.5); Lymphocyte # 0.69 X10^3/ul (0.83-4.51); Lymphocyte % 13.1 % (19-41); Mean Corp Hgb Conc 31.1 g/dL (32-36); Mean Corpuscular Volume 87.1 fL (80-94); Mean Platelet Vol. 11.4 fl (6.2-12.0); Monocyte# 0.61 X10^3/uL; Monocyte% 11.6 % (0-10); NRBC Flagged by Analyzer 0 % (0-5); Neutrophil # 3.81 X10^3/uL (2.7-7.7); Neutrophil % 72.4 % (47-70); Platelet Count 173 K/mm3 (150-450); RBC Distribution Width CV 14.1 % (11.6-14.6); RBC Distribution Width SD 45.2 fl (35.1-43.9); Red Blood Count 4.03 M/mm3 (4.6-6.2); White Blood Count 5.3 K/mm3 (4.4-11.0)
[2020-08-15 06:34] LABS: Anion Gap 4 (5-15); BUN 32 mg/dL (7-18); BUN/Creat Ratio 21.6 RATIO (10-20); Calcium,Total 8.3 mg/dL (8.5-10.1); Chloride 111 mmol/L (98-107); Creatinine, Serum 1.48 mg/dL (0.70-1.30); EST Glomerular Filtration Rate 49 mL/min (>60); Est Glom Filt Rate - Afr Amer 59 mL/min (>60); Estimated Creatinine Clearance 43.81 ml/min; Glucose 110 mg/dL (74-106); Potassium 3.7 mmol/L (3.5-5.1); Sodium Level 142 mmol/L (136-145)
[2020-08-15] MEDS: Enoxaparin 30 MG/0.3 ML Syringe SC (08:12)
[2020-08-15] MEDS: oxyCODONE 5 MG Tablet PO ×2 (08:12→21:28)
[2020-08-15] MEDS: Gabapentin 300 MG Capsule PO ×3 (08:12→16:35)
--- NOTE | 2020-08-15 10:33 | PN.HOSP_ITS ---
Subjective Subjective Patient seen and examined. He feels much better today, and has no complaints. He wants to go home. He denies any lightheadedness, dizziness, palpitations, chest pain, diarrhea or vomiting. Review of systems otherwise negative. BP is much better today, and cr has trended down. Objective Data Objective Data Vital Signs: Vital Signs Temp Pulse Resp BP Pulse Ox 98.8 F 71 20 H 134/82 H 95 08/15/20 09:45 08/15/20 09:45 08/15/20 09:45 08/15/20 09:45 08/15/20 09:45 Oxygen Flow Rate (L/min) 2 Oxygen Delivery Method Room Air Weight: 200 lb 9.93 oz Body Mass Index (BMI) 27.9 Orthostatic Vital Signs Start: 08/15/20 00:31 Freq: 0600 Status: Active Protocol: Activity Type Activity Date Activity User E-Sign Co-Sign Detail Recorded Client Recorded Date Recorded By Document 08/15/20 05:26 JG [id number] 08/15/20 05:32 JG 08/15/20 05:26 Orthostatic Vitals Standing -Blood Pressure (90/60-120/80) 163/79 H -Extremity Use Left Arm -Pulse Rate (60-100) 72 Sitting -Blood Pressure (90/60-120/80) 160/85 H -Extremity Use Left Arm -Pulse Rate (60-100) 71 Lying -Blood Pressure (90/60-120/80) 168/79 H -Extremity Use Left Arm -Pulse Rate (60-100) 72 Intake & Output: Intake and Output for Last 24 Hours 08/13/20 08/14/20 08/15/20 23:59 23:59 23:59 Intake Total 2828.33 / 2828.33 2047.5 / 2047.5 Balance 2828.33 / 2828.33 2046.5 / 2046.5 Lab / Micro Data Result Diagrams: 08/15/20 05:20 08/15/20 05:20 Labs: Laboratory Results - last 24 hr 08/14/20 08/14/20 08/14/20 13:45 13:45 13:45 WBC 7.3 RBC 4.00 L Hgb 10.9 L Hct 34.2 L MCV 85.5 MCH 27.3 MCHC 31.9 L RDW Std Deviation 43.8 RDW Coeff of Yen 14.0 Plt Count 173 MPV 11.3 Immature Gran % (Auto) 0.300 Neut % (Auto) 79.5 H Lymph % (Auto) 8.7 L [place] % (Auto) 9.0 Eos % (Auto) 2.1 Baso % (Auto) 0.4 Absolute Neuts (auto) 5.8 Absolute Lymphs (auto) 0.63 L Nucleated RBC % 0 Sodium 138 Potassium 3.0 L Chloride 101 Carbon Dioxide 31.0 Anion Gap 6 BUN 42 H Creatinine 2.43 H Estim Creat Clear Calc 26.68 Est GFR (MDRD) Af Amer 33 L Est GFR (MDRD) Non-Af 28 L BUN/Creatinine Ratio 17.3 Glucose 165 H Calcium 8.0 L Troponin I 0.043 Urine Color Urine Clarity Urine pH Ur Specific [place] Urine Protein Urine Glucose (UA) Urine Ketones Urine Occult Blood Urine Nitrite Urine Bilirubin Urine Urobilinogen Ur Leukocyte Esterase Urine RBC Urine WBC Ur Squamous Epith Cells Urine Bacteria Hyaline Casts Urine Mucus Ethyl Alcohol < 3.0 08/14/20 08/14/20 08/14/20 17:50 18:23 21:29 WBC RBC Hgb Hct MCV MCH MCHC RDW Std Deviation RDW Coeff of Yen Plt Count MPV Immature Gran % (Auto) Neut % (Auto) Lymph % (Auto) [place] % (Auto) Eos % (Auto) Baso % (Auto) Absolute Neuts (auto) Absolute Lymphs (auto) Nucleated RBC % Sodium Potassium Chloride Carbon Dioxide Anion Gap BUN Creatinine Estim Creat Clear Calc Est GFR (MDRD) Af Amer Est GFR (MDRD) Non-Af BUN/Creatinine Ratio Glucose Calcium Troponin I 0.088 H 0.083 H Urine Color Yellow Urine Clarity Clear Urine pH 5.0 Ur Specific [place] 1.020 Urine Protein 30 H Urine Glucose (UA) Normal Urine Ketones Negative Urine Occult Blood 25 H Urine Nitrite Negative Urine Bilirubin Negative Urine Urobilinogen Normal Ur Leukocyte Esterase Negative Urine RBC 0-5 SEEN Urine WBC 0-5 SEEN Ur Squamous Epith Cells 0 SEEN Urine Bacteria 0 SEEN Hyaline Casts 25-50 SEEN Urine Mucus 0 SEEN Ethyl Alcohol 08/15/20 08/15/20 08/15/20 00:22 05:20 05:20 WBC 5.3 RBC 4.03 L Hgb 10.9 L Hct 35.1 L MCV 87.1 MCH 27.0 MCHC 31.1 L RDW Std Deviation 45.2 H RDW Coeff of Yen 14.1 Plt Count 173 MPV 11.4 Immature Gran % (Auto) 0.200 Neut % (Auto) 72.4 H Lymph % (Auto) 13.1 L [place] % (Auto) 11.6 H Eos % (Auto) 2.3 Baso % (Auto) 0.4 Absolute Neuts (auto) 3.8 Absolute Lymphs (auto) 0.69 L Nucleated RBC % 0 Sodium 142 Potassium 3.7 Chloride 111 H Carbon Dioxide 27.0 Anion Gap 4 L BUN 32 H Creatinine 1.48 H Estim Creat Clear Calc 43.81 Est GFR (MDRD) Af Amer 59 L Est GFR (MDRD) Non-Af 49 L BUN/Creatinine Ratio 21.6 H Glucose 110 H Calcium 8.3 L Troponin I 0.070 H Urine Color Urine Clarity Urine pH Ur Specific [place] Urine Protein Urine Glucose (UA) Urine Ketones Urine Occult Blood Urine Nitrite Urine Bilirubin Urine Urobilinogen Ur Leukocyte Esterase Urine RBC Urine WBC Ur Squamous Epith Cells Urine Bacteria Hyaline Casts Urine Mucus Ethyl Alcohol Radiography Diagnostic Testing: Radiology Impression Brain CT 08/14/20 13:11 IMPRESSION: Chronic involutional changes of the brain. Electronically Signed: Ramses Reinoso MD at 14:08 EDT Tel , Service support , Chest X-Ray 08/14/20 13:35 IMPRESSION: No active disease. Electronically Signed: Ramses Reinoso MD at 14:10 EDT Tel , Service support , Wrist X-Ray 08/14/20 13:35 IMPRESSION: 1. No acute fracture or dislocation. 2. Scapholunate advanced collapse (SLAC wrist). Electronically Signed: Ramses Reinoso MD at 14:13 EDT Tel , Service support , Physical Exam Const alert, oriented x3 and no apparent distress General Appearance: cooperative Exam Limitations: no limitations HEENT head/scalp atraumatic Head and Scalp: normocephalic Eyes PERRL, EOMs intact bilaterally and conjunctivae normal Neck no lymphadenopathy Resp normal respiratory effort, no retractions, no use of accessory muscles and clear to auscultation bilaterally Cardio regular rate, regular rhythm, S1 normal heart sound, S2 normal heart sound and no murmurs GI normal to inspection, nondistended, normoactive bowel sounds, soft to palpation, non-tender, non-distended and hepatosplenomegaly Extremity normal to inspection, full ROM and no clubbing, cyanosis or edema Peripheral Pulses: Yes pulses 2+ throughout Skin no rashes or lesions noted Skin Narrative: resolving superficial bruising on the right side of his face. Neuro oriented x3 Sensorium / Orientation: awake and alert Motor Exam: strength 5/5 throughout Psych affect normal Assessment & Plan Assessment/Plan (1) Dizziness: (2) Acute hypotension: (3) Acute kidney injury: (4) Falls: (5) Closed head injury: PLAN: #JEREMY likely due to overdiuresis * Cr is down to 1.48 today with hydration. * lasix on hold * continue very gentle hydration with IVF * orthostatics were negative. * * #Debility due to Mechanical fall * Likely due to hypotension. Fall precautions. * PT OT on board. * Has a pacemaker in place. * Will need interrogation as it was last interrogated a year ago; to check with cardiology tomorrow. * #Hypotension due to overdiuresis * resolved. BP is 134/82 now. * #Hyperlipidemia: On statin * DVT prophylaxis: Lovenox renally dosed. COde status: full code * Visit Charges Inpatient E&M: 40157 Subs Hosp L2
[2020-08-15] MEDS: Acetaminophen 325 MG Tablet 650 MG PO (14:58)
[2020-08-15] MEDS: Metoprolol(XL)Succ 50 MG Tablet PO (16:35)
[2020-08-15] MEDS: hydrALAZINE 20 MG/ML Vial 10 MG IV (21:25)
[2020-08-15] MEDS: Atorvastatin Calcium 40 MG Tablet PO (21:28)
[2020-08-15] MEDS: ALPRAZolam 0.5 MG Tablet PO (21:28)
[2020-08-15] MEDS: Sodium Chloride 0.65% 1 SPRAY SPRAY.BTL 2 SPRAY NASAL (22:25)
[2020-08-15] MEDS: guaiFENesin 1,200 MG Tablet 1200 MG PO (22:26)
[2020-08-15] MEDS: Labetalol (Prefilled) 20 MG/4 ML IV (22:27)
[2020-08-15] MEDS: MELATONIN 10 MG TABLET 5 MG PO (23:13)
[2020-08-16 03:00] VITALS: BP 186/89; PULSE 78; PULSE 80; RESP 18; TEMP 36.4; O2SAT 96
[2020-08-16] MEDS: ALPRAZolam 0.5 MG Tablet PO (03:08)
[2020-08-16] MEDS: Labetalol (Prefilled) 20 MG/4 ML IV (03:08)
[2020-08-16] MEDS: Acetaminophen 325 MG Tablet 650 MG PO (03:09)
[2020-08-16] MEDS: MENTHOL 226.8 GM JAR 1 APPLIC TOPICAL ×2 (03:35→05:43)
[2020-08-16] MEDS: 0.9% Normal Saline 1,000 ML 150 ML IV (04:58)
[2020-08-16] MEDS: hydrOXYzine PAM 25 MG Capsule PO (05:03)
[2020-08-16] MEDS: Venlafaxine HCl 25 MG Tablet 37.5 MG PO (05:04)
[2020-08-16 05:19] VITALS: BP 180/91; PULSE 67
[2020-08-16] MEDS: hydrALAZINE 20 MG/ML Vial 10 MG IV (05:19)
[2020-08-16 06:17] LABS: Absolute Lymphocyte Count 0.77 X10^3/uL (0.83-4.51); Absolute Neutrophil Count 4.8 X10^3/uL (2.0-7.7); Basophil# 0.04 X10^3/uL; Basophil% 0.6 % (0-1); Eosinophil# 0.05 X10^3/uL; Eosinophils% 0.8 % (0-5); Hemoglobin 11.7 g/dL (13.0-16.5); Lymphocyte # 0.77 X10^3/ul (0.83-4.51); Lymphocyte % 12.1 % (19-41); Mean Corp Hgb Conc 31.6 g/dL (32-36); Mean Corpuscular Hgb 27.6 pg (27.0-32.0); Mean Corpuscular Volume 87.3 fL (80-94); Mean Platelet Vol. 11.6 fl (6.2-12.0); Monocyte# 0.63 X10^3/uL; Monocyte% 9.9 % (0-10); NRBC Flagged by Analyzer 0 % (0-5); Neutrophil # 4.83 X10^3/uL (2.7-7.7); Neutrophil % 76.3 % (47-70); Platelet Count 187 K/mm3 (150-450); RBC Distribution Width CV 14.3 % (11.6-14.6); RBC Distribution Width SD 45.8 fl (35.1-43.9); Red Blood Count 4.24 M/mm3 (4.6-6.2); White Blood Count 6.3 K/mm3 (4.4-11.0)
[2020-08-16] MEDS: oxyCODONE 5 MG Tablet PO ×2 (06:18→10:19)
[2020-08-16 06:45] LABS: Anion Gap 6 (5-15); BUN 18 mg/dL (7-18); BUN/Creat Ratio 17.6 RATIO (10-20); Calcium,Total 8.6 mg/dL (8.5-10.1); Chloride 111 mmol/L (98-107); Creatinine, Serum 1.02 mg/dL (0.70-1.30); EST Glomerular Filtration Rate 75 mL/min (>60); Est Glom Filt Rate - Afr Amer 91 mL/min (>60); Estimated Creatinine Clearance 63.57 ml/min; Glucose 117 mg/dL (74-106); Potassium 3.8 mmol/L (3.5-5.1); Sodium Level 141 mmol/L (136-145)
[2020-08-16 07:58] VITALS: PULSE 63
[2020-08-16 08:28] VITALS: BP 159/78; PULSE 70; RESP 18; TEMP 36.7; O2SAT 97
[2020-08-16] MEDS: Gabapentin 300 MG Capsule PO (08:34)
[2020-08-16] MEDS: Lisinopril 40 MG Tablet PO (08:34)
[2020-08-16] MEDS: Enoxaparin 30 MG/0.3 ML Syringe SC (10:15)
--- NOTE | 2020-08-16 10:15 | DS.PCM_ITS ---
Providers Date of Admission: 08/14/20 Primary Care Physician: Dr. Ramana Eckert DO Reason For Visit: JEREMY, HYPOTENSION, MECHANICAL FALL Diagnosis Discharge Diagnosis (1) Dizziness: Status: Acute Code(s): R42 - Dizziness and giddiness (2) Acute hypotension: Status: Acute Code(s): I95.9 - Hypotension, unspecified (3) Acute kidney injury: Status: Acute Code(s): N17.9 - Acute kidney failure, unspecified (4) Falls: Status: Acute Code(s): W19.XXXA - Unspecified fall, initial encounter (5) Closed head injury: Status: Acute Code(s): S09.90XA - Unspecified injury of head, initial encounter Medications at Discharge Home Medications alfuzosin 10 mg PO DINNER 08/15/16 cholecalciferol (vitamin D3) 1,000 unit PO DAILY 08/15/16 gabapentin 300 mg PO TID 08/15/16 psyllium husk (aspartame) 1 packet PO DAILY PRN 08/15/16 venlafaxine 37.5 mg PO TID 08/15/16 sennosides-docusate sodium 1 tab PO TID 04/14/19 atorvastatin 40 mg tablet 40 mg PO QHS #90 tab 10/14/19 lisinopril 40 mg tablet 40 mg PO DAILY #90 tab 10/14/19 metoprolol succinate 50 mg tablet,extended release 24 hr 50 mg PO BID #180 tab 10/14/19 Narcan 4 mg INTRANASAL Q3M PRN 07/25/20 alprazolam 0.5 mg PO BID PRN 07/25/20 melatonin 5 - 10 mg PO QHS PRN 07/25/20 hydroxyzine pamoate 25 mg PO TID 08/14/20 oxycodone 5 mg PO BID 08/14/20 Hospital Course Operations None Procedures None Summary of Care Provided Minutes Spent on Discharge: 35 Hospital Course: PATRICK PADGETT, is a 80 M with an extensive PMH as outlined who presents with a complaint of mechanical fall x 2. He fell whilst out for a walk today, after he felt dizzy and lightheaded and his legs just gave out and he fell. He hit his face. He wasnt willing to go to the ER at that time, so the EMS took him home. While t home, he had another fall after feeling lightheaded again. He denied any chest pain, palpitaitons, shortness of breath, nausea or vomiting. Daughter convinced him to come in to the ED. CT of hte brain in the ED was negative, and vitals showed low BP with systolic going down to the 80s. He was started on lasix ~ 1 week ago o/a of lower extremity swelling.? On arrival, WBC was 1.3 and hemoglobin was 10.9 with platelets of 173.? BMP showed sodium of 138 with potassium of 3 and creatinine of 2.43 with a creatinine checked on 07/25/2020 being 1.02.? EKG showed no acute ST changes.? He was admitted to be managed for mechanical fall and JEREMY likely due to overdiuresis. Lasix was held and nephrotoxic medications were also held. He was hydrated with IV fluids. Of note, troponins were mildly elevated at 0.08 but this trended down and this was thought to be due to hypotension as patient did not have any chest pain whatsoever. Physical therapy worked with patient. Creatinine trended down to his baseline and hypotension also resolved. Patient was able to ambulate well with physical therapy. He remained stable and was discharged home on 08/16/2020. Of note, patient had his pacer checked on 04/07/2020 and needs follow-up with cardiology on outpatient basis for it to be checked. He states is due to be checked in about a few weeks time. Patient was seen and examined on the day of discharge. He complained of pain in his left knee. Patient states he has osteoarthritis and frequently receives pain shots to help with that. He states his knee was hurting during the night but got better after he was giving his pain medication and he did not want any further work-up for his knee pain such as xrays. Review of systems otherwise negative. Labs and vitals reviewed. Medication reviewed and reconciled. Physical Exam Const alert, oriented x3 and no apparent distress General Appearance: cooperative Exam Limitations: no limitations HEENT normocephalic and head/scalp atraumatic Eyes PERRL, EOMs intact bilaterally and conjunctivae normal Neck no lymphadenopathy, supple and no JVD Resp normal respiratory effort, no retractions, no use of accessory muscles and clear to auscultation bilaterally Cardio regular rate, regular rhythm, S1 normal heart sound, S2 normal heart sound and no murmurs GI normal to inspection, nondistended, normoactive bowel sounds, soft to palpation, non-tender, non-distended and hepatosplenomegaly Extremity normal to inspection, full ROM and no clubbing, cyanosis or edema Extremity Narrative: minimal left knee swelling, minimal tenderness, no erythema Skin no rashes or lesions noted Skin Narrative: resolving superficial bruising on the right side of his face. Neuro oriented x3 Sensorium / Orientation: awake and alert Motor Exam: strength 5/5 throughout Psych affect normal ABG / Lab / Microbiology Data Result Diagrams: 08/16/20 05:10 08/16/20 05:10 Laboratory: Laboratory Results - last 24 hr 08/16/20 08/16/20 05:10 05:10 WBC 6.3 RBC 4.24 L Hgb 11.7 L Hct 37.0 L MCV 87.3 MCH 27.6 MCHC 31.6 L RDW Std Deviation 45.8 H RDW Coeff of Yen 14.3 Plt Count 187 MPV 11.6 Immature Gran % (Auto) 0.300 Neut % (Auto) 76.3 H Lymph % (Auto) 12.1 L [place] % (Auto) 9.9 Eos % (Auto) 0.8 Baso % (Auto) 0.6 Absolute Neuts (auto) 4.8 Absolute Lymphs (auto) 0.77 L Nucleated RBC % 0 Sodium 141 Potassium 3.8 Chloride 111 H Carbon Dioxide 24.0 Anion Gap 6 BUN 18 Creatinine 1.02 Estim Creat Clear Calc 63.57 Est GFR (MDRD) Af Amer 91 Est GFR (MDRD) Non-Af 75 BUN/Creatinine Ratio 17.6 Glucose 117 H Calcium 8.6 D/C Instructions Discharge Diet: 2000 mg Sodium Diet Discharge Activity: Return to Normal Activity Weight Bearing Status: Weight bearing as tolerated Call your doctor if you observe: Fever of 101 or Higher, Shortness of breath, Dizziness, Swelling in the ankles and Uncontrolled pain Additional Instructions: lasix discontinued due to hypotension. Meaningful Use Info Meaningful Use Diagnoses (Choose all that apply): None applicable Discharge Plan Admission Admit Date/Time: 08/14/20 14:53 Attending Provider: Adrianna Lopez Primary Care Provider: Ramana Eckert Instructions Patient Instructions: ED Dizziness, Uncertain Cause, ED Head Injury (Adult), ED Low Blood Pressure, All Causes Additional Instructions / Restrictions: lasix discontinued due to hypotension. To follow up with horticultural nursery assistant for pace maker check as soon as possible. Discharge Orders/Prescriptions Prescriptions: Continued atorvastatin 40 mg tablet 40 mg PO QHS Qty: 90 RF: 3 metoprolol succinate 50 mg tablet extended release 24 hr 50 mg PO BID Qty: 180 RF: 3 lisinopril 40 mg tablet 40 mg PO DAILY Qty: 90 RF: 4 venlafaxine 37.5 MG tablet 37.5 mg PO TID RF: 0 gabapentin 300 MG capsule 300 mg PO TID RF: 0 cholecalciferol (vitamin D3) 1,000 UNIT capsule 1,000 unit PO DAILY RF: 0 alfuzosin 10 MG tablet extended release 24 hr 10 mg PO DINNER RF: 0 psyllium husk (aspartame) 1 PACKET packet 1 packet PO DAILY PRN (Reason: Constipation) RF: 0 sennosides-docusate sodium 1 TABLET tablet 1 tab PO TID RF: 0 alprazolam 0.5 mg Tablet 0.5 mg PO BID PRN (Reason: Anxiety) RF: 0 Narcan 4 mg/actuation [place],Non-Aerosol 4 mg INTRANASAL Q3M PRN (Reason: reversal) RF: 0 melatonin 5 mg Tablet 5 - 10 mg PO QHS PRN (Reason: Insomnia) RF: 0 hydroxyzine pamoate 25 MG capsule 25 mg PO TID RF: 0 oxycodone 5 mg tablet 5 mg PO BID RF: 0 Discontinued prazosin 2 mg Capsule 2 mg PO QHS RF: 0 furosemide 40 mg tablet 40 mg PO DAILY RF: 0 Referrals / Follow Up: Ramana Eckert DO [Primary Care Provider] - In 1 Week Disposition Disposition (needs filled in before D/C Order can be placed): Home, self care Visit Charges Inpatient E&M: 13739 Disch Hosp
[2020-08-16] MEDS: guaiFENesin 1,200 MG Tablet 1200 MG PO (10:16)
[2020-08-16 10:17] VITALS: BP 159/78; PULSE 70
[2020-08-16] MEDS: Metoprolol(XL)Succ 50 MG Tablet PO (10:17)
[2020-08-16 12:02] VITALS: BP 159/81; PULSE 70; TEMP 37; O2SAT 98
--- NOTE | 2020-08-17 14:54 | CASEMGMT ---
N CM Discharge Follow Up Phone Call: LACE: 12 Strata: 3 Call Date: 08.17.20 Discharge Date: 08.16.20 Time of Call: 1453 Duration: <1 min Admitting Dx: JEREMY, hypotension, fall RN CM attempted to complete follow up phone call after recent hospitalization. Left message on identified voicemail with call back information.
== END 2020-08-16 12:01 | disposition home or self-care (01) | DRG 684 ==
LOC: ED 14:30 → PCU 15:17
PROVIDERS: Admitting Provider Student in an Organized Health Care Education/Training Program; Emergency Provider Emergency Medicine; PCP Student in an Organized Health Care Education/Training Program; Visit Provider Student in an Organized Health Care Education/Training Program
DX: N17.9 Acute kidney failure, unspecified (principal); T50.1X5A Adverse effect of loop [high-ceiling] diuretics, initial encounter; S00.81XA Abrasion of other part of head, initial encounter; I95.9 Hypotension, unspecified; R53.81 Other malaise; Z95.0 Presence of cardiac pacemaker; E78.5 Hyperlipidemia, unspecified; Z79.899 Other long term (current) drug therapy; W18.30XA Fall on same level, unspecified, initial encounter; Y93.89 Activity, other specified; Y92.009 Unspecified place in unspecified non-institutional (private) residence as the place of occurrence of the external cause; Y99.8 Other external cause status
CPT/HCPCS: 36415; 70450; 71045; 73110; 80048; 81001; 82077; 84484; 85025; 90715; 93005; 97116; 97162; 97165; 99285; J7030; A4216

== ENCOUNTER 2020-10-17 21:29 | Emergency (ER) | payer MEDICARE, OTHER, SELFPAY ==
[2020-10-12 09:00] VITALS: BMI 27.9
[2020-10-17 21:30] VITALS: BP 174/62; PULSE 74; RESP 15; TEMP 36.4; O2SAT 98; BMI 27.1
--- NOTE | 2020-10-17 23:06 | RAD_ITS ---
HISTORY: Pain EXAMINATION/TECHNIQUE: XR Knee 3 Views: Right COMPARISON: None FINDINGS: SOFT TISSUES: Scattered small dystrophic calcifications. Atherosclerotic calcifications also noted. BONES/JOINTS: Status post right knee arthroplasty and patellar revision. No signs of acute hardware complication. Normal alignment with no acute fracture or dislocation. Preservation of the joint spaces. RAD/Knee 3 Views IMPRESSION: Right knee with no acute findings. at 2341 Reported and signed by: Andriy Ackerman MD Electronically Signed: Andriy Ackerman MD at 23:40 EDT Tel , Service support ,
--- NOTE | 2020-10-17 23:10 | EX.ED.DYSGE1 ---
HPI History of Present Illness Chief Complaint: Lower Extremity Injury Informant: patient Narrative Narrative: Patient is a 80-year-old male who presents to the emergency department for acute on chronic right knee pain. States over the past 3 days it has become significantly more painful. No significant swelling. He has been able to ambulate on it. Any movement or touching the area makes it worse. He denies any systemic symptoms including any fever/chills. No chest pain or shortness of breath. No weakness or loss of sensation going down the leg. He has had multiple knee surgeries before in the past. He states the last time he was operated on was around 6 years ago. He does not recall any specific trauma or inciting event to the pain this time. [facility] Medical History (Reviewed 10/12/20 @ 09:30 by Dandy Espinosa QUALITY ASSURANCE MONITOR CHASSIS, QUALITY ASSURANCE MONITOR CHASSIS-C) Anxiety and depression Atrioventricular block, Mobitz type 2 Atrioventricular omar re-entry tachycardia BPH (benign prostatic hyperplasia) Chronic osteoarthritis Chronic pain Diet-controlled type 2 diabetes mellitus Elevated cortisol level Essential (primary) hypertension History of CVA (cerebrovascular accident) (10/17/14) Hyperlipidemia Methicillin resistant Staphylococcus aureus infection Nonobstructive atherosclerosis of coronary artery Nonrheumatic tricuspid valve regurgitation Obesity Right bundle branch block Secondary pulmonary arterial hypertension Stroke/cerebrovascular accident Stroke/cerebrovascular accident Type II diabetes mellitus, uncontrolled Home Medications gabapentin 300 mg PO TID 08/15/16 [History Last Taken 08/14/20] psyllium husk (aspartame) 1 packet PO DAILY PRN 08/15/16 [History Last Taken 08/14/20] venlafaxine 37.5 mg PO TID 08/15/16 [History Last Taken 08/14/20] sennosides-docusate sodium 1 tab PO TID 04/14/19 [History Last Taken 08/14/20] atorvastatin 40 mg tablet 40 mg PO QHS #90 tab 10/14/19 [Rx Last Taken 08/13/20] lisinopril 40 mg tablet 40 mg PO DAILY #90 tab 10/14/19 [Rx Last Taken 08/14/20] metoprolol succinate 50 mg tablet,extended release 24 hr 50 mg PO BID #180 tab 10/14/19 [Rx Last Taken 08/14/20] Narcan 4 mg INTRANASAL Q3M PRN 07/25/20 [History Last Taken Unknown] alprazolam 0.5 mg PO BID PRN 07/25/20 [History Last Taken 08/14/20] melatonin 5 - 10 mg PO QHS PRN 07/25/20 [History Last Taken Unknown] hydroxyzine pamoate 25 mg PO TID 08/14/20 [History Last Taken 08/14/20] oxycodone 5 mg PO BID 08/14/20 [History Last Taken 08/14/20] clonidine HCl 0.1 mg tablet 0.1 mg PO TID 10/12/20 [History Last Taken Unknown] prazosin 2 mg capsule 2 mg PO QHS 10/12/20 [History Last Taken Unknown] Allergy/AdvReac Type Severity Reaction Status Date / Time ibuprofen AdvReac Intermediate Other Verified 10/17/20 21:36 levofloxacin [From Levaquin] AdvReac Other Verified 10/17/20 21:36 Family History (Reviewed 10/12/20 @ 09:30 by Dandy Espinosa QUALITY ASSURANCE MONITOR CHASSIS, QUALITY ASSURANCE MONITOR CHASSIS-C) Father Prostate cancer Mother Hypertension Thyroid disorder CVA (cerebral vascular accident) CAD (coronary artery disease) Surgical History (Reviewed 10/12/20 @ 09:30 by Dandy Espinosa QUALITY ASSURANCE MONITOR CHASSIS, QUALITY ASSURANCE MONITOR CHASSIS-C) History of back surgery (06/24/07) History of left heart catheterization (02/2005) History of left knee replacement 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) History of revision of total replacement of right knee joint (01/25/16) History of tonsillectomy and adenoidectomy History of total right knee replacement (10/07/09) Social History Smoking Status: Never smoker alcohol intake: never caffeine: Yes Type: tea ROS ROS ED Constitutional Constitutional ED: Denies chills or fever(s) Eyes Eyes: Denies change in vision ENT ENT ED: Denies rhinorrhea Cardiovascular Cardiovascular: Denies chest pain Respiratory/Chest Respiratory/Chest: Denies cough, dyspnea or dyspnea on exertion Gastrointestinal Gastrointestinal: Denies abdominal pain, diarrhea, nausea or vomiting Genitourinary Genitourinary ED: Denies dysuria, hematuria or urinary frequency Musculoskeletal Musculoskeletal: Reports arthralgias; Denies back pain or neck pain Integumentary Denies rash Neurologic Neurologic: Denies dizziness, headache(s) or weakness EXAM Physical Exam Const Vital Signs: 10/17/20 21:30 Temperature 97.6 F L Temperature Source Temporal Pulse Rate 74 Respiratory Rate 15 Blood Pressure 174/62 H Blood Pressure Mean 99 Pulse Ox 98 Oxygen Delivery Method Room Air Positive well nourished and well developed General Appearance ED: well developed and NAD HEENT Reports normocephalic, head/scalp atraumatic and moist mucous membranes Eyes PERRL and EOMs intact bilaterally Neck supple General: Negative for tenderness Chest Wall inspection of chest normal Resp normal respiratory effort and clear to auscultation bilaterally Auscultation: Negative for rales, rhonchi or wheezes Cardio regular rate, regular rhythm and no murmurs GI normal to inspection, nondistended, normoactive bowel sounds and non-tender Palpation: soft; Negative for guarding or rebound tenderness present Extremity Extremity Narrative: Previous surgical scars present over bilateral knees. No significant tenderness with palpation. No significant swelling. No overlying skin changes. Neurovascular intact distal. Full range of motion. 5 out of 5 muscle strength throughout. General Extremety ED: Negative for edema General Extremity: Negative for edema Neuro no sensory deficits noted Sensorium / Orientation: alert Motor Exam: strength 5/5 throughout Psych mental status grossly normal Skin no rashes or lesions noted MDM MDM MDM Narrative Medical decision making narrative: Patient presents the ED for nontraumatic acute on chronic right knee pain. On arrival to the ED is mildly hypertensive otherwise normal vital signs. Patient concerned that his prosthetic might have shifted or became dislocated. Patient does have good range of motion I think this is unlikely but will check an x-ray. Patient's knee x-ray did not reveal any acute findings. Patient does feel like his pain has improved since coming into the emergency department. He does have pain medication at home. Low concern for septic arthritis. He can continue to take this as prescribed. Return precautions are reviewed with him. He otherwise has a follow-up with orthopedic surgeon. He understands and is agreeable with this plan. Radiography Diagnostic Testing: Radiology Impression Knee X-Ray 10/17/20 23:06 IMPRESSION: Right knee with no acute findings. at 2341 Reported and signed by: Anrdiy Ackerman MD Electronically Signed: Andriy Ackerman MD at 23:40 EDT Tel , Service support , Discharge Plan Triage Chief Complaint: Lower Extremity Injury ED Provider: Jorge Miramontes Dx/Rx/DC Orders Clinical Impression: Knee pain Instructions: ED Knee Pain of Uncertain Cause Prescriptions: No Action atorvastatin 40 mg tablet 40 mg PO QHS Qty: 90 RF: 3 metoprolol succinate 50 mg tablet extended release 24 hr 50 mg PO BID Qty: 180 RF: 3 lisinopril 40 mg tablet 40 mg PO DAILY Qty: 90 RF: 4 clonidine HCl 0.1 mg tablet 0.1 mg PO TID RF: 0 prazosin 2 mg capsule 2 mg PO QHS RF: 0 venlafaxine 37.5 MG tablet 37.5 mg PO TID RF: 0 gabapentin 300 MG capsule 300 mg PO TID RF: 0 psyllium husk ([place]part[place]) 1 PACKET packet 1 packet PO DAILY PRN (Reason: Constipation) RF: 0 sennosides-docusate sodium 1 TABLET tablet 1 tab PO TID RF: 0 alprazolam 0.5 mg Tablet 0.5 mg PO BID PRN (Reason: Anxiety) RF: 0 Narcan 4 mg/actuation [place],Non-Aerosol 4 mg INTRANASAL Q3M PRN (Reason: reversal) RF: 0 melatonin 5 mg Tablet 5 - 10 mg PO QHS PRN (Reason: Insomnia) RF: 0 hydroxyzine pamoate 25 MG capsule 25 mg PO TID RF: 0 oxycodone 5 mg tablet 5 mg PO BID RF: 0 Primary Care Provider: Ramana Eckert Referrals: Ramana Eckert DO [Primary Care Provider] - 3-5 Days if not improving Disposition Disposition: Home, Self Care Discharge Date/Time: 10/18/20 00:13
== END 2020-10-18 00:13 | disposition home or self-care (01) ==
PROVIDERS: Emergency Provider Emergency Medicine; PCP Student in an Organized Health Care Education/Training Program
DX: M25.561 Pain in right knee (principal); G89.29 Other chronic pain; F41.9 Anxiety disorder, unspecified; F32.9 Major depressive disorder, single episode, unspecified; I10 Essential (primary) hypertension; E78.5 Hyperlipidemia, unspecified; E11.9 Type 2 diabetes mellitus without complications; Z79.899 Other long term (current) drug therapy
CPT/HCPCS: 73562; 99284

== ENCOUNTER → 2020-10-25 11:53 | Outpatient (CLI) | payer MEDICARE, OTHER, SELFPAY ==
[2020-10-17 21:30] VITALS: BMI 27.1
[2020-10-25 15:32] LABS: Absolute Lymphocyte Count 0.93 X10^3/uL (0.83-4.51); Absolute Neutrophil Count 3.6 X10^3/uL (2.0-7.7); Basophil# 0.04 X10^3/uL; Basophil% 0.8 % (0-1); Eosinophil# 0.16 X10^3/uL; Eosinophils% 3.1 % (0-5); Hematocrit 38.2 % (40-54); Hemoglobin 12.1 g/dL (13.0-16.5); Lymphocyte # 0.93 X10^3/ul (0.83-4.51); Lymphocyte % 17.9 % (19-41); Mean Corp Hgb Conc 31.7 g/dL (32-36); Mean Corpuscular Hgb 27.6 pg (27.0-32.0); Mean Platelet Vol. 11.3 fl (6.2-12.0); Monocyte# 0.46 X10^3/uL; Monocyte% 8.9 % (0-10); NRBC Flagged by Analyzer 0 % (0-5); Neutrophil # 3.59 X10^3/uL (2.7-7.7); Neutrophil % 69.1 % (47-70); Platelet Count 245 K/mm3 (150-450); RBC Distribution Width CV 14.4 % (11.6-14.6); Red Blood Count 4.39 M/mm3 (4.6-6.2); White Blood Count 5.2 K/mm3 (4.4-11.0)
[2020-10-25 15:49] LABS: Erythrocyte Sedimentation Rate 20 mm/hr (0-20)
[2020-10-25 15:54] LABS: CRP 8.03 mg/L (0.0-3.0)
== END ==
PROVIDERS: PCP Student in an Organized Health Care Education/Training Program; Referring Provider Specialist; Visit Provider Specialist
DX: Z96.651 Presence of right artificial knee joint (principal)
CPT/HCPCS: 36415; 85025; 85652; 86140

== ENCOUNTER → 2020-10-27 09:10 | Outpatient (CLI) | payer MEDICARE, OTHER, SELFPAY ==
[2020-10-17 21:30] VITALS: BMI 27.1
[2020-10-27 09:51] LABS: Synovial Fld Mononuclear WBC % 58.9 %; Synovial Fld Polynuclear WBC # 0.194 10^3/uL; Synovial Fld Polynuclear WBC % 41.1 %
[2020-10-27 09:56] LABS: RBC /Synovial Fluid 0.012 10^6/uL (0)
[2020-10-27 09:57] LABS: AUTO B FLUID DILUENT BKGD CT WBC <0.1 RBC <0.01 (W<.1,R<.01)
[2020-10-27 09:58] LABS: Appearance /Synovial Fluid Cloudy (CLEAR); Color / Synovial Fluid Pink (Pale Yellow); Source / Synovial Fluid KNEE; Viscosity / Synovial Fluid Viscous (HIGH)
[2020-10-27 10:28] LABS: Lymph 12 %; Monocyte /Synovial Fluid 86 %; Neutrophil 1 % (0-25); Other Cell /Synovial Fluid 1 %
[2020-10-27 10:32] LABS: Body Fluid QC Type(s) BF1Q
[2020-10-28 10:50] LABS: Pathologist Comment Reviewed
== END ==
LOC: LABSPEC 09:12
PROVIDERS: PCP Student in an Organized Health Care Education/Training Program; Referring Provider Specialist; Visit Provider Specialist
DX: Z96.651 Presence of right artificial knee joint (principal)
CPT/HCPCS: 87015; 87070; 87075; 87101; 87116; 87205; 87206; 89050; 89051

== ENCOUNTER → 2021-10-06 | Outpatient (CLI) | payer MEDICARE, OTHER, SELFPAY ==
[2021-10-06 10:35] LABS: Absolute Lymphocyte Count 0.92 X10^3/uL (0.83-4.51); Absolute Neutrophil Count 3.5 X10^3/uL (2.0-7.7); Basophil# 0.05 X10^3/uL; Eosinophil# 0.18 X10^3/uL; Eosinophils% 3.5 % (0-5); Hematocrit 39.4 % (40-54); Hemoglobin 12.8 g/dL (13.0-16.5); Lymphocyte # 0.92 X10^3/ul (0.83-4.51); Lymphocyte % 17.9 % (19-41); Mean Corp Hgb Conc 32.5 g/dL (32-36); Mean Corpuscular Hgb 29.4 pg (27.0-32.0); Mean Corpuscular Volume 90.4 fL (80-94); Mean Platelet Vol. 10.4 fl (6.2-12.0); Monocyte# 0.48 X10^3/uL; Monocyte% 9.4 % (0-10); NRBC Flagged by Analyzer 0 % (0-5); Neutrophil # 3.49 X10^3/uL (2.7-7.7); Platelet Count 180 K/mm3 (150-450); RBC Distribution Width CV 13.2 % (11.6-14.6); RBC Distribution Width SD 43.4 fl (35.1-43.9); Red Blood Count 4.36 M/mm3 (4.6-6.2); White Blood Count 5.1 K/mm3 (4.4-11.0)
[2021-10-06 11:15] LABS: AST(SGOT) 23 U/L (15-37); Alanine Aminotransfer ALT/SGPT 21 U/L (16-61); Albumin, Serum 3.4 g/dL (3.2-5.0); Alkaline Phosphatase 69 U/L (45-117); Anion Gap 4 (5-15); BUN 19 mg/dL (7-18); BUN/Creat Ratio 14.5 RATIO (10-20); Bilirubin, Direct 0.11 mg/dL (0.00-0.30); Chloride 104 mmol/L (98-107); Cholesterol 87 mg/dL (200); Creatinine, Serum 1.31 mg/dL (0.70-1.30); EST Glomerular Filtration Rate 56 mL/min (>60); Est Glom Filt Rate - Afr Amer 68 mL/min (>60); Globulin 3.1 g/dL (2.2-4.2); Glucose 159 mg/dL (74-106); High Density Lipoprotein 30 mg/dL; Protein, Total 6.5 g/dL (6.4-8.2); Sodium Level 138 mmol/L (136-145); Triglycerides 138 mg/dL; Very Low Density Lipoprotein 28 mg/dL (5-40)
== END | disposition home or self-care (01) ==
LOC: LAB 10:15
PROVIDERS: PCP Student in an Organized Health Care Education/Training Program; Referring Provider Internal Medicine Cardiovascular Disease; Visit Provider Internal Medicine Cardiovascular Disease
DX: I25.10 Atherosclerotic heart disease of native coronary artery without angina pectoris (principal); I44.1 Atrioventricular block, second degree; I10 Essential (primary) hypertension; Z95.0 Presence of cardiac pacemaker
CPT/HCPCS: 36415; 80048; 80061; 80076; 85025

== ENCOUNTER → 2021-10-20 | Outpatient (CLI) | payer MEDICARE, OTHER, SELFPAY ==
--- NOTE | 2021-10-20 10:59 | ECHOD_ITS ---
Reason For Study: ARRYTHMIA Procedure This was a 2D Doppler, Color Flow transthoracic echocardiogram. Exam performed in department. Left Ventricle Normal LV size. The estimated ejection fraction is 50 %. Stage 1 diastolic dysfunction. Apical wall motion abnormality may reflect pacemaker activation. Dawson : Hypokinetic. Right Ventricle Normal RV size. ICD or pacer leads identified within the right ventricle. Normal systolic function. Aortic Valve Trisinus/trileaflet aortic valve. Pulmonic Valve Normal pulmonic valve. Great Vessels Mildly dilated aortic root. The pulmonary artery is normal size. Normal inferior vena cava. Pericardium/Pleural No pericardial effusion. MMode/2D Measurements & Calculations LVIDd: 5.7 cm IVSd: 1.1 cm Ao root diam: 4.1 cm LVIDs: 4.1 cm LVPWd: 0.99 cm FS: 28.8 % SV(MOD-sp4): 49.8 ml SV(sp4-el): 49.7 ml LVAd ap4: 30.7 cm2 LVLd ap4: 9.1 cm EDV(MOD-sp4): 88.3 ml EDV(sp4-el): 88.1 ml LVAs ap4: 19.3 cm2 LVLs ap4: 8.2 cm ESV(MOD-sp4): 38.5 ml ESV(sp4-el): 38.3 ml EF(MOD-sp4): 56.4 % EF(sp4-el): 56.5 % LA dimension(2D): 4.9 cm Time Measurements MV dec time: 0.21 sec Doppler Measurements & Calculations MV E max roberth: 43.3 cm/sec Lat Peak E' Roberth: 3.4 cm/sec Med Peak E' Roberth: 4.6 cm/sec MV A max roberth: 74.8 cm/sec E/E' lat: 12.6 E/E' med: 9.4 MV E/A: 0.58 Ao V2 max: 60.8 cm/sec LV V1 max: 57.5 cm/sec MV dec slope: 204.8 cm/sec2 Ao max P.5 mmHg LV V1 max P.3 mmHg PA V2 max: 100.6 cm/sec PA V2 mean: 65.3 cm/sec ECHO/Echo Complete Interpretation Summary Normal LV size. The estimated ejection fraction is 50 %. Stage 1 diastolic dysfunction. Dawson : Hypokinetic. Mildly dilated aortic root. Ordering Physician: Alfredo Dang Referring Physician: Alfredo Dang Performed By: Elvie Montanez RCS
== END | disposition home or self-care (01) ==
LOC: CVS 10:57
PROVIDERS: PCP Student in an Organized Health Care Education/Training Program; Referring Provider Internal Medicine Cardiovascular Disease; Visit Provider Internal Medicine Cardiovascular Disease
DX: I44.1 Atrioventricular block, second degree (principal)
CPT/HCPCS: 93306

== ENCOUNTER → 2023-04-02 | Outpatient (CLI) | payer MEDICARE, OTHER, SELFPAY ==
[2023-04-02 12:25] LABS: Absolute Neutrophil Count 3.1 X10^3/uL (2.0-7.7); Basophil# 0.07 X10^3/uL; Basophil% 1.3 % (0-1); Eosinophils% 7.2 % (0-5); Hematocrit 38.2 % (40-54); Lymphocyte % 25.1 % (19-41); Mean Corp Hgb Conc 31.4 g/dL (32-36); Mean Corpuscular Hgb 28.2 pg (27.0-32.0); Mean Corpuscular Volume 89.9 fL (80-94); Mean Platelet Vol. 10.6 fl (6.2-12.0); Monocyte# 0.55 X10^3/uL; Monocyte% 9.9 % (0-10); NRBC Flagged by Analyzer 0 % (0-5); Neutrophil # 3.14 X10^3/uL (2.7-7.7); Neutrophil % 56.3 % (47-70); Platelet Count 195 K/mm3 (150-450); RBC Distribution Width CV 14.4 % (11.6-14.6); RBC Distribution Width SD 46.5 fl (35.1-43.9); Red Blood Count 4.25 M/mm3 (4.6-6.2); White Blood Count 5.6 K/mm3 (4.4-11.0)
--- OUTSIDE RECORDS SUMMARY | 2023-04-02 12:26 | XMS RPT_ITS | CCD ---
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 Name Role Phone JAYLEN Montgomery, Mary Ann Choduhury Unavailable Unavailable JAYLEN Montgomery, Mary Ann Choudhury Unavailable Unavailable JAYLEN Montgomery, Mary Ann Choudhury Unavailable Unavailable JAYLEN Montgomery, Mary Ann Choduhury Unavailable Unavailable Ceja, Ally Y Unavailable JAYLEN Montgomery, Mary Ann Choudhury Unavailable Unavailable Zully Sheehan RN Unavailable [phone] DeFinis, Harumi Y Unavailable Unavailable DeFinis, Harumi Y Unavailable Unavailable Ceja, Ally Y Unavailable JAYLEN Montgomery, Mary Ann Choudhury Unavailable [facility] JAYLEN Montgomery, Mary Ann Choudhury Unavailable Unavailable JANINA WELLS DO Primary Care Physician [phone] Angel Luna DOlas R Primary Care Provider Angel Luna DOlas R Primary Care Provider FLOR UGARTE Attending Unavailable BROWN, HORTENCIA R Primary Care Unavailable BROWN, HORTENCIA R Primary Care Unavailable FLOR UGARTE Attending Unavailable BROWN, HORTENCIA R Primary Care Unavailable BROWN, HORTENCIA R Primary Care Unavailable SPOERFAWAD S Referring Unavailable BROWN, HORTENCIA R Primary Care Unavailable FAWAD DANIEL S Attending Unavailable FLOR UGARTE Referring Unavailable BROWN, HORTENCIA R Primary Care Unavailable FLOR UGARTE Referring Unavailable BROWN, HORTENCIA R Primary Care Unavailable FLOR UGARTE Referring Unavailable BROWN, HORTENCIA R Primary Care Unavailable LEWIS CID DO Attending Unavailable JANINA WELLS DO Primary Care Unavailable JANINA WELLS DO Primary Care Unavailable JANINA WELLS DO Attending Unavailable JANINA WELLS DO Primary Care Unavailable DR HEIDI MCCORMICK MD Attending Unavailable JANINA WELLS DO Primary Care Unavailable PATRICK NICKERSON DO Attending Unavailable JANINA WELLS DO Primary Care Unavailable JANINA WELLS DO Attending Unavailable Allergies Allergy Classification Reported Allergen(s) Allergy Type Date of Onset Reaction(s) Facility (20 sources) ibuprofen; Translations: [ibuprofen] drug allergy 04-24-2012 Other: See Comments [facility] Work Phone: [phone] (18 sources) levoFLOXacin; Translations: [Levofloxacin] drug allergy 04-24-2012 mouth ulcers [facility] Work Phone: [phone] (20 sources) levoFLOXacin; Translations: [LEVOFLOXACIN] Drug Allergy 09-05-2012 Other: See Comments [facility], [place] Medications Current Medications Medication Drug Class(es) Dates Sig (Normalized) Sig (Original) acetaminophen 325 mg / oxyCODONE hydrochloride 5 mg oral tablet (20 sources) Opioid Agonist Start: 04-18-2022 acetaminophen-oxyC ODONE 325 mg-5 mg oral tablet 0 Refill(s), 95.8 Start Date: 04/18/22 Status: Ordered Completed/Discontinued Medications Medication Drug Class(es) Dates Sig (Normalized) Sig (Original) acetaminophen 325 mg oral tablet (10 sources) Start: 09-08-2016 ACETAMINOPHEN 325 MG TABS As needed ACETAMINOPHEN [id number] Zully Sheehan RN Problems Active Problems Problem Classification Problem Date Documented Date Episodic/Chronic Anxiety disorders (20 sources) Anxiety disorder; Translations: [Anxiety] 11-12-2018 Chronic Aortic; peripheral; and visceral artery aneurysms (6 sources) Aneurysm of descending thoracic aorta; Translations: [Aneurysm of ascending aorta] 07-26-2020 Chronic Blindness and vision defects (6 sources) Blindness AND/OR vision impairment level 02-18-2019 Chronic Conduction disorders (20 sources) Presence of cardiac pacemaker; Translations: [Mobitz type II atrioventricular block] Onset: 7 08-17-2016 Chronic Coronary atherosclerosis and other heart disease (12 sources) Coronary arteriosclerosis; Translations: [Atherosclerotic heart disease of [place] coronary artery without angina pectoris] Onset: 3 05-01-2012 Chronic Diabetes mellitus without complication (18 sources) Diabetes mellitus; Translations: [Type 2 diabetes mellitus] Onset: 3 04-24-2012 Chronic Disorders of lipid metabolism (20 sources) Hyperlipidemia; Translations: [Hyperlipidemia, unspecified] Onset: 3 Resolved: 3 05-01-2012 Chronic Esophageal disorders (19 sources) Gastroesophageal reflux disease; Translations: [Gastro-esophageal reflux disease without esophagitis] 09-05-2012 Chronic Essential hypertension (20 sources) Hypertensive disorder; Translations: [Essential (primary) hypertension] Onset: 3 04-24-2012 Chronic Fracture of lower limb (6 sources) Fracture of fibula 01-12-2021 Episodic Heart valve disorders (9 sources) Tricuspid incompetence, non-rheumatic ; Translations: [Nonrheumatic tricuspid (valve) insufficiency] Onset: 7 09-08-2016 Chronic Hyperplasia of prostate (20 sources) Benign prostatic hyperplasia; Translations: [Benign prostatic hyperplasia without lower urinary tract symptoms] 10-07-2017 Chronic Immunizations and screening for infectious disease (2 sources) Antineutrophil cytoplasmic antibody positive; Translations: [Other specified abnormal immunological findings in serum] Onset: 3 11-10-2022 Episodic Lymphadenitis (1 source) Thoracic lymphadenopathy 02-01-2023 Episodic Mood disorders (20 sources) Depressive disorder; Translations: [Depression] 10-07-2017 Chronic Nutritional deficiencies (6 sources) Vitamin D deficiency 02-18-2019 Chronic Osteoarthritis (6 sources) Bilateral osteoarthritis of knees 12-20-2018 Chronic Other bone disease and musculoskeletal deformities (6 sources) Cervical somatic dysfunction 03-09-2020 Episodic Other bone disease and musculoskeletal deformities (6 sources) Somatic dysfunction of lumbar region 03-09-2020 Episodic Other bone disease and musculoskeletal deformities (6 sources) Somatic dysfunction of rib 03-09-2020 Episodic Other bone disease and musculoskeletal deformities (6 sources) Somatic dysfunction of sacral region 03-09-2020 Episodic Other bone disease and musculoskeletal deformities (6 sources) Somatic dysfunction of thoracic region 03-09-2020 Episodic Other circulatory disease (6 sources) History of cerebrovascular accident 02-18-2019 Episodic Other connective tissue disease (2 sources) Calcaneal spur 01-12-2021 Episodic Other connective tissue disease (6 sources) Cramp in lower limb 02-18-2019 Episodic Other connective tissue disease (6 sources) Swelling of lower limb 08-10-2020 Episodic Other connective tissue disease (6 sources) Weakness of hand 10-01-2020 Episodic Other connective tissue disease (5 sources) Plantar fasciitis 02-15-2021 Episodic Other connective tissue disease (1 source) Neuralgia; Translations: [Neuralgia and neuritis, unspecified] Onset: 3 Episodic Other connective tissue disease (1 source) Hand pain 03-06-2023 Episodic Other hereditary and degenerative nervous system conditions (10 sources) Restless legs; Translations: [Restless legs syndrome] Chronic Other male genital disorders (2 sources) Impotence 10-10-2022 Chronic Other nervous system disorders (15 sources) Neuropathy; Translations: [Polyneuropathy, unspecified] Chronic Other nervous system disorders (2 sources) Polyneuropathy, unspecified; Translations: [Neuropathy] Onset: 3 Chronic Other nervous system disorders (6 sources) Abnormal gait 12-05-2019 Episodic Other nervous system disorders (6 sources) Impaired cognition 10-01-2020 Episodic Other nervous system disorders (6 sources) Numbness of hand 10-01-2020 Episodic Other nervous system disorders (1 source) Paresthesia; Translations: [Paresthesia of skin] 11-07-2022 Episodic Other nervous system disorders (1 source) Paresthesia of skin; Translations: [Paresthesia of skin] Onset: 3 Episodic Other non-traumatic joint disorders (1 source) Pain in unspecified knee; Translations: [Pain of joint of knee] Onset: 1 Episodic Other non-traumatic joint disorders (4 sources) Knee pain 04-22-2021 Episodic Other screening for suspected conditions (not mental disorders or infectious disease) (18 sources) Electrocardiogram abnormal; Translations: [Abnormal electrocardiogram [ECG] [EKG]] Onset: 3 05-01-2012 Episodic Other screening for suspected conditions (not mental disorders or infectious disease) (3 sources) Viral screening status 04-18-2022 Episodic Paralysis (8 sources) Paresis of lower extremity; 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] 07-14-2019 Chronic Residual codes; unclassified (6 sources) Chronic back pain 07-14-2019 Episodic Residual codes; unclassified (6 sources) H/O Spinal surgery 10-03-2019 Episodic Residual codes; unclassified (6 sources) Immunization due 12-05-2019 Episodic Residual codes; unclassified (6 sources) Insomnia 06-03-2019 Episodic Residual codes; unclassified (3 sources) Screening due 04-18-2022 Episodic Residual codes; unclassified (1 source) Edema of left lower limb 01-25-2023 Episodic Screening and history of mental health and substance abuse codes (3 sources) Tobacco use and exposure - finding 04-18-2022 Chronic Spondylosis; intervertebral disc disorders; other back problems (20 sources) Degeneration of lumbosacral intervertebral disc; Translations: [Cervical post-laminectomy syndrome] Onset: 8 10-03-2019 Chronic Spondylosis; intervertebral disc disorders; other back problems (20 sources) Spinal stenosis of lumbar region; Translations: [Low back pain] Onset: 8 02-18-2008 Episodic Substance-related disorders (2 sources) Continuous opioid dependence 10-10-2022 Chronic Unclassified (5 sources) Preoperative cardiovascular examination ; Translations: [Encounter for preprocedural cardiovascular examination] Onset: 3 04-24-2012 Unclassified (12 sources) Patient encounter status 04-18-2022 Unclassified (2 sources) Drug therapy finding 10-10-2022 Past or Other Problems Problem Classification Problem Date Documented Da te Episodic/Chronic Other lower respiratory disease (12 sources) Dyspnea; Translations: [Shortness of breath] Onset: 05-01-2012 05-01-2012 Episodic Residual codes; unclassified (1 source) Personal history of other drug therapy; Translations: [History of regular medication use] Onset: 06-05-2022 Episodic Results Test Name Value Interpretation Reference Range Facil ity Vital Signs Date Time Vital Sign Value Performing Clinician Facility 03-06-2023 06:22-0500 Blood Pressure Location LEWIS CID DO [facility] 03-06-2023 06:22-0500 Blood Pressure Method LEWIS CID DO [facility] 03-06-2023 06:22-0500 Body temperature 97.88 [degF] LEWIS CID DO [facility] 03-06-2023 06:22-0500 Diastolic Blood Pressure Non-Invasive 73 mm[Hg] LEWIS RDZESKA DO [facility] 03-06-2023 06:22-0500 Heart rate 64 /min LEWIS RDZESKA DO [facility] 03-06-2023 06:22-0500 Respiratory rate 18 /min LEWIS RDZESKA DO [facility] 03-06-2023 06:22-0500 Systolic Blood Pressure Non-Invasive 146 mm[Hg] LEWIS RDZESKA DO [facility] 11-07-2022 10:48-0400 Body weight 97.34 kg Flor Queener PA-C Work Phone: [facility] 11-07-2022 10:48-0400 Diastolic blood pressure 62 mm[Hg] Flor Queener PA-C Work Phone: [facility] 11-07-2022 10:48-0400 Heart rate 64 /min Flor Queener PA-C Work Phone: [facility] 11-07-2022 10:48-0400 Respiratory rate 18 /min Flor Queener PA-C Work Phone: [facility] 11-07-2022 10:48-0400 SaO2% (BldA) [Mass fraction] 97 % Flor Queener PA-C Work Phone: [facility] 11-07-2022 10:48-0400 Systolic blood pressure 104 mm[Hg] Flor Queener PA-C Work Phone: [facility] 02-18-2021 16:51-0500 Body height 180 cm SADIQ ALBERTO MD [facility] 02-18-2021 16:51-0500 Body temperature 97.88 [degF] SADIQ ALBERTO MD [facility] 02-18-2021 16:51-0500 Body weight 91 kg SADIQ ALBERTO MD [facility] 02-18-2021 16:51-0500 Diastolic blood pressure 97 mm[Hg] SADIQ ALBERTO MD [facility] 02-18-2021 16:51-0500 Heart rate 74 /min SADIQ ALBERTO MD [facility] 02-18-2021 16:51-0500 Respiratory rate 16 /min SADIQ ALBERTO MD [facility] 02-18-2021 16:51-0500 Systolic blood pressure 162 mm[Hg] SADIQ ALBERTO MD [facility] 09-09-2019 11:30-0400 BP Diastolic 92 mm[Hg] [facility] [employer] [facility] , [place] 09-09-2019 11:30-0400 BP Systolic 175 mm[Hg] [facility] , [place] 09-09-2019 11:30-0400 Pulse (Heart Rate) 71 /min [facility] [place] 09-09-2019 11:30-0400 Respiratory Rate 16 /min [facility] [place] 09-09-2019 11:15-0400 Pulse Oximetry 96 % [facility] , [place] 09-09-2019 10:53-0400 Body Temperature 97 [degF] [facility] [employer] [facility] , [place] 09-09-2019 09:13-0400 BMI (Body Mass Index) 28.31 kg/m2 [facility] [place], [place] 09-09-2019 09:13-0400 Body weight 92.08 kg [place], [place] 09-09-2019 09:13-0400 Height 180.3 cm [place], [place] 09-12-2016 15:40-0400 BMI (Body Mass Index) 28.59 kg/m2 [facility] Work Phone: 09-12-2016 15:40-0400 BP Diastolic 70 mm[Hg] [facility] Work Phone: 09-12-2016 15:40-0400 BP Systolic 140 mm[Hg] [facility] Work Phone: 09-12-2016 15:40-0400 Height 180.34 cm [facility] Work Phone: 09-12-2016 15:40-0400 Pulse (Heart Rate) 64 /min [facility] Work Phone: 09-12-2016 15:40-0400 Respiratory Rate 20 /min [facility] Work Phone: 09-12-2016 15:40-0400 Weight 92.99 kg [facility] Work Phone: 05-01-2012 10:22-0500 Heart rate 418 ms [facility] Work Phone: 05-01-2012 10:22-0500 Heart rate 62 /min [facility] Work Phone: 05-01-2012 09:48-0500 BMI (Body Mass Index) 28.42 kg/m2 JAYLEN [facility] Work Phone: 05-01-2012 09:48-0500 Body weight 92.08 kg [facility] Work Phone: 05-01-2012 09:48-0500 BP Diastolic 80 mm[Hg] [facility] Work Phone: 05-01-2012 09:48-0500 BP Systolic 120 mm[Hg] [facility] Work Phone: 05-01-2012 09:48-0500 Height 180.34 cm [facility] Work Phone: 05-01-2012 09:48-0500 Pulse (Heart Rate) 80 /min [facility]AYLEN [facility] Work Phone: 05-01-2012 09:48-0500 Respiratory Rate 12 /min [facility] Work Phone: 05-01-2012 09:48-0500 Weight 92.08 kg [facility] Work Phone: Encounters Encounter Date Encounter Type Care Provider Facility Start: 03-06-2023 End: 03-06-2023 Emergency department patient visit LEWIS CID DO Facility:B Start: 03-06-2023 End: 03-06-2023 Emergency department patient visit LEWIS CID DO [facility] Start: 01-26-2023 End: 01-27-2023 ambulatory JANINA WELLS DO Facility:[facility] Start: 01-26-2023 End: 01-27-2023 ambulatory JANINA WELLS DO Facility:[facility] Start: 01-26-2023 End: 01-26-[address] HEIDI MCCORMICK MD [facility] Start: 01-26-2023 End: 01-26-[address] HEIDI MCCORMICK MD [facility] Start: 01-23-2023 Refill Flor martinez PA-C Work Phone: Neurology Procedures Date Procedure Procedure Detail Performing Clinician Start: 09-09-2019 Ct lumbar spine w/o contrast material Maria Esther Clarke Work Phone: Start: 09-09-2019 XA SPECIAL ANGIOGRAPHY PROCEDURE Maria Esther Clarke Work Phone: Start: 09-09-2019 Prothrombin time Woodrow Horn Work Phone: Start: 03-19-2017 Maintenance procedure for cardiac pacemaker system RIDDHI JULIA [facility] Start: 10-02-2016 End: 10-02-2016 Pm device progr eval, dual Zully Yao PA-C Work Phone: Start: 08-30-2016 End: 08-30-2016 Nurse, Teaching, Wound Check (no charge) Alfredo Dang MD Start: 05-01-2012 End: 05-01-2012 Documentation of current medications Mary Ann Montgomery RN Start: 05-01-2012 End: 05-01-2012 Electrocardiogram, complete Jaime Bella MD Start: 05-01-2012 End: 05-01-2012 Follow Up Appt Other Jaime Bella MD Start: 05-01-2012 End: 05-01-2012 PFM Jaime Bella MD Start: 04-24-2012 Preoperative cardiovascular examination PRE-OPERATIVE CARDIOVASCULAR EXAMINATION Mary Ann Montgomery RN Arthroplasty of knee RIDDHI ADAIR [facility] Back structure, excl uding neck (body structure) RIDDHI DUMONT [employer] [facility] Bilateral replacemen t of knee joints SADIQ ALBERTO MD Cerebrovascular acci dent (disorder) RIDDHI DUMONT [facility] [employer] Methicillin resistan t Staphylococcus aureus (organism) RIDDHI DUMONT [employer] [facility] Tonsillectomy SADIQ ALBERTO MD Plan of Treatment Date Care Activity Detail Author Start: 08-14-2030 Urine microalbumin profile [facility] Start: 11-08-2023 BP CONTROLLED (<130/80) BP CON TROLLED (<130/80) [facility] Start: 12-12-2022 BP CONTROLLED (<130/80) BP CON TROLLED (<130/80) [facility] Start: 11-17-2022 Covid-19 Vaccine ( season) Covid-19 Vaccine ( season) [facility] Start: 11-17-2022 Influenza vaccination [facility] Start: 11-07-2022 End: 01-07-2023 Angiotensin converting enzyme [Enzymatic activity/volume] in Serum or Plasma EVAN/ANGIOTENSIN BLD Lab Routine Neuropathy - (NOS) Expected: 11/07/2022, Expires: 01/07/2023 [facility] Work Phone: Immunizations Immunization Date Immunization Notes Care Provider Cami tovar 04-18-2022 pneumococcal polysaccharide vaccine, 23 valent; Translations: [Pneumovax 23] JANINA WELLS DO [facility] 12-27-2021 influenza (aIIV4) vaccine, age 65+ yr, quadrivalent, PF (FLUAD QUAD) Flor Ugarte PA-C Work Phone: [facility] 12-27-2021 influenza, high dose seasonal, preservative-free JANINA WELLS DO [facility] 12-27-2021 influenza virus vacc ine, unspecified formulation Flor Ugarte PA-C Work Phone: [facility] 01-14-2021 influenza (aIIV4) vaccine, age 65+ yr, quadrivalent, PF (FLUAD QUADRIVALENT) Wolf Rodríguez Jr., MD Work Phone: [facility] 01-14-2021 influenza nasal, unspecified formulation Flor Ugarte PA-C Work Phone: [facility] 01-14-2021 influenza virus vacc ine, unspecified formulation JANINA WELLS DO [facility] 01-14-2021 SARS-CoV-2 (COVID-19 ) mRNA-1273 vaccine JANINA WELLS DO [facility] 11-16-2020 pneumococcal conjuga te vaccine, 13 valent; Translations: [Prevnar 13] RIDDHI DUMONT [employer] 08-14-2020 tetanus toxoid, redu jero diphtheria toxoid, and acellular pertussis vaccine, adsorbed Wolf Rodríguez Jr., MD Work Phone: [facility] 05-24-2020 COVID-19, mRNA, LNP- S, PF, 100 mcg/ 0.5 mL dose; Translations: [Moderna COVID-19 Vaccine] RIDDHI DUMONT [employer] [facility] 04-26-2020 SARS-CoV-2 (COVID-19 ) mRNA-1273 vaccine RIDDHI DUMONT [employer] [facility] 12-19-2019 influenza nasal, unspecified formulation Flor Ugarte PA-C Work Phone: [facility] 12-19-2019 influenza virus vacc ine, unspecified formulation RIDDHI DUMONT [employer] Payers Date Payer Category Payer Medicare [id number] 2019 Medicare [id number] 2019 Unknown MMO MMO MEDICARE SUPPLEMENT [id number] 2019-Present [phone] [address] [place] [address] Indemnity [id number] 2018 Unknown [employer]ICAL [employer] M [employer]ICAL M[employer]UAL [address] xxxxxxxxxxxx 2018-Present [phone] [address] [place] [address] xxxxxxxxxxxx [id number] 2014 Medicare MEDICARE MEDICAR E PART A AND B xxxxxxxxxxx 2014-Present [phone] [place] [address] xxxxxxxxxxx [id number] 2007 Medicare MEDICARE MEDICAR E A AND B [id number] 2007-Present [phone] [place] [address] Medicare [id number] 2007 Medicare [id number] 1940 Unknown [id number] 1942 Unknown [id number] 1942 Unknown [id number] 1942 Unknown [id number] 1942 Unknown [id number] Social History Date Type Detail Facility Start: 09-23-2018 End: 09-09-2019 Tobacco [facility] status [facility]IS [facility] NATALIIA VILLANUEVA Start: 09-09-2019 End: 12-07-2022 Alcohol intake [facility] ([facility] Start: 1940 Sex Assigned At Not on file [facility] Exposure to SARS-CoV -2 (event) [place] Sex Assigned At Male [facility] Start: 12-12-2021 Tobacco use and exposure Smokeless tobacco non-user [facility] Start: 09-05-2012 History SDOH Alcohol Comment rare [facility] Start: 12-02-2021 End: 12-12-2021 Exposure to SARS-CoV-2 (event) Not sure [facility] Start: 04-04-2022 End: 05-10-2022 History of Social function [facility] Start: 04-04-2022 End: 05-10-2022 Tobacco use panel [facility] National Score (1-100), lower number is lower risk 66 [facility] Functional Status Date Assessment Result Facility 03-06-2023 Functional Status ID band on, Allergy Band on, Call device within reach, Bed in low position, Wheels locked, Upper/Half-Length side-rails up, Visitor at bedside, Safety level maintained [facility] Mental Status Date Assessment Result Facility 03-06-2023 Mental Status Oriented x 4 [facility] Clinical Notes 02-18-2021 to 03-06-2023 Telephone Encounter - Allison Valladares LPN - 01/23/2023 11:01 AM ESTTelephone Encounter - Flor Ugarte PA-C - 01/23/2023 10:28 AM ESTPatient InstructionsRadiologyLaboratoryRadiologyLaboratory Note Date & Type Note Facility 03-06-2023 Hospital Discharge instructions Patient Education 03/06/2023 06:34:22 Upper Extremity Contusion Upper Extremity Contusion You have a contusion (bruise) of an upper extremity (arm, wrist, hand, or fingers). Symptoms include pain, swelling, and skin discoloration. No bones are broken. This injury may take from a few days to a few weeks to heal. During that time, the bruise may change from reddish in color, to purple-blue, to green-yellow, to yellow-brown. Home care Unless another medicine was prescribed, you can take acetaminophen, ibuprofen, or naproxen to control pain. (If you have chronic liver or kidney disease or ever had a stomach ulcer or gastrointestinal bleeding, talk with your doctor before using these medicines.) Elevate the injured area to reduce pain and swelling. As much as possible, sit or lie down with the injured area raised about the level of your heart. This is especially important during the first 48 hours. Ice the injured area to help reduce pain and swelling. Wrap a cold source (ice pack or ice cubes in a plastic bag) in a thin towel. Apply to the bruised area for 20 minutes every 1 to 2 hours the first day. Continue this 3 to 4 times a day until the pain and swelling goes away. If a sling was provided, you may remove it to shower or bathe. To prevent joint stiffness, do not wear it for more than 1 week. Follow-up care Follow up with your healthcare provide, or as advised. Call if you are not improving within the next 1 to 2 weeks. When to seek medical advice Call your healthcare provider right away if any of these occur: Increased pain or swelling Hand or fingers become cold, blue, numb or tingly Signs of infection: Warmth, drainage, or increased redness or pain around the injury Inability to move the injured body part Frequent bruising for unknown reasons [id number] [employer]. [address] [place] [address]. All rights reserved. This information is not intended as a substitute for professional medical care. Always follow your healthcare professional's instructions. Follow Up Care 03/06/2023 06:15:08 With:JANINA WELLS DO Address: [address] [place] [phone] When:2-4 days [facility] 03-06-2023 Note Discharge Instructions Thank you for allowing [facility] to assist you with your healthcare needs. The following is important discharge information regarding your hospital visit. Diagnosis from Today's Visit Hand pain Hand pain-swelling What to Do Next Instructions from Your Care Team Discharge Home Equipment - Ordered -- Splint, thumb velcro spica, 99 month(s), 03/06/23 6:38:00 EST Post Acute Orders No qualifying data available. You Need to Schedule the Following Appointments Follow Up with JANINA WELLS DO When Within 2-4 days Where: [address] [place] [phone] Allergies Levaquin Medications Please ask your primary doctor or pharmacist before taking any other medication not listed, including over the counter drugs, herbal medications, vitamins and or supplements as they may interact with your home medications. What How Much When Instructions Last Dose Unchanged alfuzosin (Uroxatral 10 mg oral tablet, extended release) 1 tab(s) by mouth Once a day Duration: 90 Days Unchanged alpha-lipoic acid (Alpha Lipoic 300 mg oral tablet) 1 tab(s) by mouth Two (2) times a day otc Unchanged amLODIPine (amLODIPine 5 mg oral tablet) 1 tab(s) by mouth Once a day Duration: 90 Days Unchanged atorvastatin (atorvastatin 40 mg oral tablet) 1 tab(s) by mouth Once a day Duration: 90 Days Unchanged calcium carbonate (Tums 500 mg oral tablet, chewable) 4 tab(s) Chewed Once a day Unchanged cholecalciferol (Vitamin D3) 1,000 unit(s) by mouth Every day Unchanged cyanocobalamin (Vitamin B12 500 mcg oral tablet) 2 tab(s) by mouth Every day OTC Unchanged diclofenac topical (Voltaren 1% topical gel) See instructions gram(s) Topical QID Unchanged docusate (Bernal Stool Softener) See Instructions Three (3) times a day mg Oral BID Unchanged donepezil (donepezil 5 mg oral tablet) 0.5 tab by mouth Once a day Duration: 90 Days Unchanged DULoxetine (DULoxetine 20 mg oral delayed release capsule) managed by pain management Unchanged lisinopril (lisinopril 40 mg oral tablet) 1 tab(s) by mouth Once a day short term fill until mail order can be received Unchanged melatonin (melatonin 5 mg oral tablet) 2 tab(s) by mouth Daily at bedtime as needed for as needed for insomnia Duration: 90 Days Unchanged metoprolol (Metoprolol Succinate ER 50 mg oral TABLET extended release) 1 tab(s) by mouth Two (2) times a day Duration: 30 Days Unchanged metoprolol (Metoprolol Succinate ER 50 mg oral tablet, extended release) TAKE 1 TABLET BY MOUTH TWICE DAILY Unchanged nabumetone (nabumetone 500 mg oral tablet) 1 tab(s) by mouth Two (2) times a day Unchanged naloxone (Narcan 4 mg/ 0.1 mL nasal spray) 1 spray(s) Intranasal As Directed as needed for see pharmacy notes may repeat every 2 to 3 minutes until patient responds Unchanged oxyCODONE (oxyCODONE 5 mg oral tablet ( IMMEDIATE release )) 1 tab(s) Every 6 hours Unchanged potassium chloride (potassium chloride 99 mg oral tablet) 1 tab(s) by mouth Once a day Unchanged prazosin (prazosin 2 mg oral capsule) 1 cap by mouth Daily at bedtime Duration: 90 Days Unchanged pregabalin (pregabalin 75 mg oral capsule) 1 cap by mouth Four (4) times a day Unchanged pseudoephedrine (Sudafed 30 mg oral tablet) 1 tab(s) by mouth Every 6 hours as needed for as needed for cold symptoms Unchanged psyllium (Metamucil) See instructions Oral Unchanged sildenafil (sildenafil 50 mg oral tablet) 2 tab(s) by mouth Once a day as needed for as needed for erectile dysfunction Duration: 30 Days start one tablet, may increase to 2 tablets; best if used 1 hour before sexual activity Unchanged venlafaxine (venlafaxine 37.5 mg oral tablet) 1 tab(s) by mouth Three (3) times a day Please take this list to your next doctor s visit. Bring all medications you take, including over the counter medications, herbals and other supplements with you to your doctor s visit. Patients and families are reminded to discard old lists and to update any records with all medication providers or retail pharmacies. Education Materials Upper Extremity Contusion You have a contusion (bruise) of an upper extremity (arm, wrist, hand, or fingers). Symptoms include pain, swelling, and skin discoloration. No bones are broken. This injury may take from a few days to a few weeks to heal. During that time, the bruise may change from reddish in color, to purple-blue, to green-yellow, to yellow-brown. Home care Unless another medicine was prescribed, you can take acetaminophen, ibuprofen, or naproxen to control pain. (If you have chronic liver or kidney disease or ever had a stomach ulcer or gastrointestinal bleeding, talk with your doctor before using these medicines.) Elevate the injured area to reduce pain and swelling. As much as possible, sit or lie down with the injured area raised about the level of your heart. This is especially important during the first 48 hours. Ice the injured area to help reduce pain and swelling. Wrap a cold source (ice pack or ice cubes in a plastic bag) in a thin towel. Apply to the bruised area for 20 minutes every 1 to 2 hours the first day. Continue this 3 to 4 times a day until the pain and swelling goes away. If a sling was provided, you may remove it to shower or bathe. To prevent joint stiffness, do not wear it for more than 1 week. Follow-up care Follow up with your healthcare provide, or as advised. Call if you are not improving within the next 1 to 2 weeks. When to seek medical advice Call your healthcare provider right away if any of these occur: Increased pain or swelling Hand or fingers become cold, blue, numb or tingly Signs of infection: Warmth, drainage, or increased redness or pain around the injury Inability to move the injured body part Frequent bruising for unknown reasons [id number] [employer] [address] [place] [address]. All rights reserved. This information is not intended as a substitute for professional medical care. Always follow your healthcare professional's instructions. Additional Information VACCINATE! IT SAVES LIVES! Members of the community who have not yet received the COVID-19 vaccine and would like to receive it can visit one of [facility] vaccine clinics. There are many vaccine clinic locations within the [facility]. For locations and available times, please visit [email or web address] It is important to note that some COVID mobile vaccine clinics are held outdoors and may be canceled in rainy or stormy conditions. To learn more about pediatric vaccinations (ages 5-11), we invite you to visit the [facility] webpage. [email or web address] To learn more about the COVID-19 vaccine, we invite you to visit the CDC website for a list of frequently asked questions. https://www.cdc.gov/coronavirus/2 019-ncov/vaccines/faq.html [facility] Patient Portal Access Instructions: Stay connected with your healthcare team and access your personal medical information anytime with the [facility] Patient Portal. If you would like a full copy of your medical records please contact the [facility] Medical Records Department Sunday through Sunday between 8a.m. and 4:30p.m. Please follow the directions below to access the portal: 1.Access the email account you provided upon registration to the hospital.2.Look for an invitation email from [facility].3.Open the email and access the invitation link: Accept Invitation to [employer]4.Fill in the required keith to create your account. Sign into [email or web address] with your username and password that you created in the above steps to stay up to date. You can then view a summary of results, a summary of your visits, and the ability to download your summaries to your computer or send the information securely to a physician. Remember that your healthcare information is confidential, so carefully consider who you will allow to register on the [facility] Patient Portal for access to your information. You can also access the [employer] Patient Portal on the [facility]. Simply click on Health Records under Health Data and then click on the [facility] logo. HOW TO SAFELY DISPOSE OF PRESCRIPTION MEDICATIONS Please use one of the following methods to safely dispose of your unused medications. 1.Use a drug disposal kit: the drug disposal pouch allows you to safely discard your old and unused drugs. Ask your nurse to give you one when you are discharged.2.Visit a local take-back location: Many local pharmacies and police departments have programs that collect old and unwanted prescription drugs. Call your local pharmacy or go to http://[employer]/8U5Ig7g to find one close to you.3.Make use of household items: Use cat litter or old coffee grounds to dispose medications if other options are not available. Mix your drugs with these household products, seal them in an airtight container and throw it into the garbage. Call [facility]: [phone] to be sure your drugs can be disposed of in this way. Some medicines may require a different approach.4.Never flush your medications down the toilet. IF YOU HAVE BEEN PRESCRIBED AN OPIOIDS FOR PAIN If you have been prescribed an opioid (such as hydrocodone, oxycodone or morphine), it is critical to understand the possible side effects and risks of opioid pain medications. Even when taken as directed, opioids can have several side effects including: Tolerance, meaning you might need to take more of a medication for the same pain relief. Nausea, vomiting and/or constipation. Sleepiness, dizziness, dry mouth, confusion, depression or itching. Physical dependence, meaning you have withdrawal symptoms when a medication is stopped ? this can develop within a few days. KNOW YOUR RESPONSIBILITIES It is important to know exactly how much and how often to take the opioid pain medications you are prescribed. Never take opioids in higher amounts or more often than prescribed. Do not combine opioids with alcohol or other drugs that cause drowsiness, such as benzodiazepines, also known as benzos, including diazepam and alprazolam, muscle relaxants or sleep aids. Never sell or share prescription opioids. This is illegal. Store opioids in a secure place and out of reach of others (including children, family, friends and visitors). The last page(s) of this document has been signed and retained as a CHART COPY Signatures Patient Education Materials Upper Extremity Contusion Medication Leaflets My discharge plan and instructions have been reviewed and explained to me and IDAYRON ROBERT M understand my current condition and have read and understand these discharge instructions. I have received a written copy of the plan/instructions. If I have questions, I am aware that I should contact my doctor. Patient/Certified Surgical Technician Signature: Date/Time: Relationship to Patient: ____ Witness Name/Signature: Date/Time: [facility] 01-23-2023 Miscellaneous Notes TC to ptPatrick, let pt know we have sent in refill for medication. Pt agreeable to make follow up, will have Jud, call to schedule. Phone number provided. Allison Valladares LPN Will refill Lyrica 75mg QID for three months, but will need follow up scheduled with myself or Dr. Rodríguez for further refills. PDMP website currently unavailable. All prescriptions have been APPROPRIATELY filled. No suspicious activity was identified. Unable to view 01/23/2023 by Flor Ugarte PA-C TOMAS 11/07/22 with MQ NOV none scheduled Refill 10/26/22 with qty: 120 and 2 refills Allison Valladares LPN TOMAS Assessment/Plan ASSESSMENT/PLAN: 1. Neuropathy - (NOS) - ICD9: 355.9, ICD10: G62.9 (primary diagnosis) 2. Paresthesia of skin - ICD9: 782.0, ICD10: R20.2 Patient with slightly worsening of his paresthesias. Notes that he feels that his symptoms are slowly creeping up and on his hands. At last appointment, no abnormalities to small and large fibers on exam, but today does have some decreased sensation to temperature to the hands bilaterally. No large fiber findings. Etiology as to his neuropathy is unclear, history of diabetes but does have significant history of alcohol abuse in the past. Laboratory evaluation has been unremarkable thus far, patient requesting further work-up if possible. We will obtain additional laboratory studies including B12, MMA and inflammation markers to evaluate for any abnormalities. Discussed repeat EMG as he feels his symptoms are worsening, but patient deferred. Additionally, discussed referral to neuromuscular but patient deferring at this time as well. Patient's primary concern is treating his symptoms and preventing further worsening. Patient did start alpha lipoic acid at last appointment but notes no difference with this. Patient does see pain management monthly. Was told to discuss increasing Lyrica, patient notes that he is already taking 75 mg 4 times a day with a total of 300 mg a day. Patient does note significant daytime fatigue and would like to avoid any medications causing fatigue. Patient previously on gabapentin with no improvement with this medication. Did discuss Cymbalta patient not taking any others antidepressants at this time. Patient would like to try adding this medication, instructed to follow-up with pain management and discuss this medication change. We will start patient on 20 mg of Cymbalta to take daily. Patient and agreeable to treatment plan of care at this time, all questions were answered. Patient follow-up in 3 months or sooner should any symptoms change or worsen. Flor Ugarte PA-C requesting lyrica refill be sent to [facility]. Last ov w/M. Torito: 11-07-22 documented in this encounter [facility] 12-12-2022 Miscellaneous Notes Pts called and is notified of providers message and instructions. She voices understanding. 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 Called [facility] and they were able to push order through with an over ride as mail in pharmacy had filled first. Aparna Washington, JAYLEN TC to patient with no answer. Left additional VM to return call to office regarding medication clarification. DARLINE Burroughs Phone call placed brief message to contact a nurse to review prior provider results) See encounter 12/08/2022. Lakia Jackson LPN Ok we can continue both medications as long as patient is doing well. Signs of increased serotonin include restlessness, confusion, high blood pressure and muscle twitching. Reach out with any questions or concerns. Thank you. Patient's calls back and states that patient has been venlafaxine for quite awhile. This is prescribed by his primary care doctor, Dr. Wells in [place].. states that patient only has enough of Cymbalta till Sunday. Patient has had no issues so far taking both so far. Please review and advise, Emily Latif RN TC to with no answer. Left VM to return call. Please see below and advise. Allison Valladares LPN It appears that patient was started on Effexor since last appointment as it was not on our med list on 11/07/22. Taking effexor and cymbalta can increase risk of serotonin syndrome when taken together. Is he currently taking this medication? called to get a short term rx for pt on medication listed below. They are waiting on mail order to come. Patient has been identified by name and date of : Yes, Provider JULIA Flores Date 12/08/22 Time 10:17 am Spouse phones for refill(s): Requested Prescriptions Pending Prescriptions Disp Refills DULoxetine (CYMBALTA) 20 mg capsule 15 capsule 0 Sig: Take 1 capsule by mouth once daily. Date of last office visit in primary care: 11/07/22 Last 2 Encounter Wt Readings: Date: Wt: 12/07/2022 98.9 kg (218 lb 1.6 oz) 11/07/2022 97.3 kg (214 lb 9.6 oz) Previous labs/tests for medication: Not applicable Thank you. Joanna Jackson LPN documented in this encounter [facility] 12-07-2022 Note HNO ID: [id number] Author: Fawad Daniel MD Service: ? Author Type: Physician Type: Progress Notes Filed: 12/07/2022 3:03 PM Note Text: HPI: This is Mr. Patrick Lyle a 82 year old male from who presents to the [facility] neurology department with a chief complaint of neuropathy, positive ANCA. Referring provider: Flor Ugarte [address] [facility] [place] [address] HISTORY OF PRESENT ILLNESS: Patrick Lyle is a 82 year old male, There were no vitals taken for this visit. with a PMH significant for HTN, GERD, depression, anxiety, heavy ETOH use. At last appointment patient was doing well on lyrica, last seen 05/10/22. Noted some parasthesias, alpha lipoic acid was started and increase water intake. Patient states that he feels the symptoms are slowly worsening. States that he feels his neuropathy is slowly creeping up his legs and is now to his mid thigh. This is equal bilaterally. Also notes that it is in his hands as well. No falls, but does state that it makes it feel harder to walk. Sees pain management monthly for chronic low back pain, takes oxycodone daily. 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 EMG previously shows evidence of polyneuropathy and lumbar imaging shows significant degenerative changes. Patient states that he does follow with pain management for his low back issues, states that he is too old for surgery but does get injections for this. He has numbness up to his knees bilaterally. It keeps coming up, it seems to be getting worse. He had an emg and was diagnosed w/ SM polyneuropathy it was done in [place]. He describes the numbness as your legs are asleep He has pain in his knees when he walks too much. He has pain in his lower back. He is taking the pain medication for his back and knee pain. PDMP 481 Pregabalin 75 mg QID Oxycodone 5/325 qid Lumbar spine surgery x 4 (1 was clean out d/t infection).; dates of lumbar spine surgery 06/2007 at [facility], September 2007, 2011 dr. Sullivan. His hand function is ok. He has some nubness in his right hand > left hand in the fingertips. 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 Abnormal labs: b6 (low) --> normal 11/08. C-anca - positive (ANCA) Negative anti-Proteinase III by multiplex flow immunoassay but C-ANCA pattern identified by confirmatory indirect immunofluorescence (IFA). Final interpretation: Positive for C-ANCA. This can be due to high sensitivity of IFA. Clinical correlation is required. Normal labs: evan, b12, mma, crp, esr, folate, cmp, cbc, spep x 2, t4, b1, heavy metal screen, a1c, jorge, esr, mma He has no lung, liver, or kidney disease. Outside EMG 09/07 PMH: PAST MEDICAL HISTORY Diagnosis Date Anxiety BPH (benign prostatic hyperplasia) Depression DM2 (diabetes mellitus, type 2) (HCC) GERD (gastroesophageal reflux disease) HTN (hypertension) Lumbar pain Lumbar stenosis Medications: Current Outpatient Medications Medication Sig Dispense Refill DULoxetine (CYMBALTA) 20 mg capsule Take 1 capsule by mouth once daily. 90 capsule 1 venlafaxine (EFFEXOR) 37.5 mg tablet pregabalin (LYRICA) 75 mg capsule Take 1 cap in AM and afternoon and 2 caps QHS. 120 capsule 2 Melatonin 5 mg cap Take 5 mg by mouth daily at bedtime. atorvastatin (LIPITOR) 40 mg tablet Take 40 mg by mouth daily at bedtime. prazosin (MINIPRESS) 2 mg cap Take 2 mg by mouth daily at bedtime. amLODIPine (NORVASC) 5 mg tablet Take 5 mg by mouth once daily. nabumetone (RELAFEN) 750 mg tablet Take 750 mg by mouth twice daily. Taken between oxycodone doses donepezil (ARICEPT) 10 mg tablet Take 5 mg by mouth daily at bedtime. Takes 1/2 tablet for 5mg qhs lisinopril (ZESTRIL, PRINIVIL) 40 mg tablet Take 40 mg by mouth once daily. pseudoephedrine (SUDAFED) 30 mg tablet Take 30 mg by mouth once daily. (Patient not taking: Reported on 05/10/2022) calcium carbonate (TUMS) 500 mg chew Take by mouth twice daily. tolnaftate (TINACTIN TOPICAL) Apply to affected area. naloxone HCl (NARCAN NASAL) Use in the nose. calcium carbonate (TUMS CALCIUM FOR LIFE BONE ORAL) Take by mouth. oxyCODONE-acetaminophen 5-325 mg tablet Take 1-2 tablets by mouth every 4 hours as needed. (Patient not taking: Reported on 05/10/2022) 60 tablet 0 fexofenadine (KILLIAN) 180 mg tablet Take 180 mg by mouth daily at bedtime. (Patient not taking: Reported on 05/10/2022) cholecalciferol (VITAMIN D3) 1,000 unit tab tablet Take 1,000 Units by mouth once daily. GLUCOSAMINE/MSM/CHONDROIT SULF (GLUCOSAMINE [id number] ORAL) Take by mouth twice daily. (Patient not taking: Reported on 05/10/2022) alfuzosin SR (UROXATRAL) 10 mg 24 hr tablet Take 10 mg by mouth once daily. dicyclomine (BENTYL) 20 mg tablet Take 20 mg by mouth every 6 hours. (Patient not taking: Reported on 05/10/2022) magnesium 100 mg cap Take 100 mg by mouth as needed (more content not included)... [facility] 12-07-2022 Miscellaneous Notes Spouse (Jud) calls to request prescription be sent to [facility] [employer] Previously sent to wrong pharmacy. [facility] filled for 30 day prescription. Past OV: 11/07/2022 [facility] OV: none Monalisa Pace RN documented in this encounter [facility] 11-13-2022 Miscellaneous Notes TC to pt who voiced understanding of below. Pt would like a new script sent to [facility] [employer] for 90 days of Cymbalta. Ordered pended. Allison Valladares LPN ----- Message from Flor Ugarte PA-C sent at 11/13/2022 12:30 PM EDT ----- B12 is low, supplement with regimen below. B12 <400: Vitamin B12 level <400, which indicates deficiency. You may start vitamin B12 supplements [available [id number]] orally, according to the following regimen: oVitamin B12, 2 mg (or 2000 micrograms) by mouth daily x1 month. Take together with folic acid 1 mg daily. oTHEN maintenance with 1 mg (or 1000 micrograms) daily thereafter. Your PCP may recheck vitamin B12 levels in about 6 months to ensure adequate repletion. documented in this encounter [facility] 11-10-2022 Miscellaneous Notes TC to pt who voiced understanding, and is agreeable to seeing neuromuscular. Please call Jud to schedule. Allison Valladares LPN Laboratory results show positive ANCA which is a marker for vasculitis (inflammation of blood vessels). This may be contributing to his neuropathy and for this he will need to see neuromuscular provider. I have put in a consult. documented in this encounter [facility] 11-07-2022 Note HNO ID: [id number] Author: Flor Ugarte PA-C Service: ? Author Type: Physician Inclusion Special Education Teacher Type: Progress Notes Filed: 11/07/2022 12:36 PM Note Text: ESTABLISHED PATIENT VISIT Last visit: 05/10/22 ASSESSMENT/PLAN: 1. Neuropathy - (NOS) - ICD9: 355.9, ICD10: G62.9 (primary diagnosis 2. RLS (restless legs syndrome) - ICD9: 333.94, ICD10: G25.81 3. Spinal stenosis of lumbar region, unspecified whether neurogenic claudication present - ICD9: 724.02, ICD10: M48.061 Patient with significant improvement in symptoms after starting Lyrica 75 mg. Patient notes that he has no issues sleeping now that he started this medication. He does note that he still experiences paresthesias just past the knee constantly. He notes that since last visit he has noticed slightly more numbness and tingling to the left hand. Patient also endorses some mild weakness to the hands, difficulty holding onto his fork. Full strength on exam without any hyperreflexia, no concerns for myelopathy at this time. No radicular pain in the upper extremities. 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 Patient with history of heavy alcohol use, likely contributing to patient's symptoms. Patient inquired about any other means of preventing worsening of his symptoms. Discussed using alpha lipoic acid 600 mg daily as this has shown efficacy for patients with diabetic neuropathy, although patient does not have diabetes. Patient would like to try the supplement. Also discussed exercise, increasing hydration as patient only drinks 1 glass of water a day. Additionally discussed avoiding caffeine as patient drinks 1 soda a day. Other conservative measures were discussed and given to patient. No red flag signs or symptoms to warrant additional imaging at this time. Patient with full strength on exam. Regarding episode of back pain, patient notes he follows with pain monthly. He does receive lumbar injections for chronic pain, approximately every 6 months. Patient and agreeable to treatment plan of care at this time, all questions were answered. Patient to follow-up in 6 months or sooner should any symptoms change or worsen. Flor Ugarte PA-C CHIEF COMPLAINT: follow up HISTORY OF PRESENT ILLNESS: Patrick Lyle is a 82 year old male, There were no vitals taken for this visit. with a PMH significant for HTN, GERD, depression, anxiety, heavy ETOH use. At last appointment patient was doing well on lyrica, last seen 05/10/22. Noted some parasthesias, alpha lipoic acid was started and increase water intake. Patient states that he feels the symptoms are slowly worsening. States that he feels his neuropathy is slowly creeping up his legs and is now to his mid thigh. This is equal bilaterally. Also notes that it is in his hands as well. No falls, but does state that it makes it feel harder to walk. Sees pain management monthly for chronic low back pain, takes oxycodone daily. 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 EMG previously shows evidence of polyneuropathy and lumbar imaging shows significant degenerative changes. Patient states that he does follow with pain management for his low back issues, states that he is too old for surgery but does get injections for this. Mostly tolerates the Lyrica well however it makes him very sleepy, and the day After taking his afternoon dose. Currently taking 300 mg daily. States that he was told by pain management to reach out and see if increasing his medication is beneficial for him. Patient reports that he has not had any new symptoms since last appointment, no weakness, no unilateral symptoms, no strokelike symptoms. No bowel bladder incontinence. Notes that he does have some generalized weakness in the lower extremities, continues to exercise daily but does not feel it is helping. REVIEW OF SYSTEMS GENERAL:No weight loss, malaise or fevers. HEENT:Negative for frequent or significant headaches, No changes in hearing or vision, no nose bleeds or other nasal problems NECK:Negative for lumps, goiter, pain and significant neck swelling RESPIRATORY: Negative for cough, wheezing or shortness of breath. CARDIOVASCULAR: Negative for chest pain, leg swelling or palpitations. GASTROINTESTINAL: Negative for abdominal discomfort, blood in stools or black stools or change in bowel habits GENITOURINARY: No history of dysuria, frequency or incontinence MUSCULOSKELETAL: Negative for joint pain or swelling, back pain or muscle pain. NEUROLOGIC:Negative for focal numbness or weakness, headaches and dizziness or syncope, vision changes, speech/languag changes - EXCEPT that as per HPI above. SKIN:Negative for lesions, rash, and itching. PSYCHIATRIC: Negative for sleep disturbance, mood disorder and recent psychosocial stresso (more content not included)... [facility] 11-07-2022 Instructions Flor Ugarte PA-C - 11/07/2022 11:08 AM EDT Start Cymbalta 20mg daily Laboratory studies Follow up in three months documented in this encounter [facility] 11-07-2022 History of Present illness Narrative ESTABLISHED PATIENT VISIT Last visit: 05/10/22 ASSESSMENT/PLAN: 1. Neuropathy - (NOS) - ICD9: 355.9, ICD10: G62.9 (primary diagnosis 2. RLS (restless legs syndrome) - ICD9: 333.94, ICD10: G25.81 3. Spinal stenosis of lumbar region, unspecified whether neurogenic claudication present - ICD9: 724.02, ICD10: M48.061 Patient with significant improvement in symptoms after starting Lyrica 75 mg. Patient notes that he has no issues sleeping now that he started this medication. He does note that he still experiences paresthesias just past the knee constantly. He notes that since last visit he has noticed slightly more numbness and tingling to the left hand. Patient also endorses some mild weakness to the hands, difficulty holding onto his fork. Full strength on exam without any hyperreflexia, no concerns for myelopathy at this time. No radicular pain in the upper extremities. 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 Patient with history of heavy alcohol use, likely contributing to patient's symptoms. Patient inquired about any other means of preventing worsening of his symptoms. Discussed using alpha lipoic acid 600 mg daily as this has shown efficacy for patients with diabetic neuropathy, although patient does not have diabetes. Patient would like to try the supplement. Also discussed exercise, increasing hydration as patient only drinks 1 glass of water a day. Additionally discussed avoiding caffeine as patient drinks 1 soda a day. Other conservative measures were discussed and given to patient. No red flag signs or symptoms to warrant additional imaging at this time. Patient with full strength on exam. Regarding episode of back pain, patient notes he follows with pain monthly. He does receive lumbar injections for chronic pain, approximately every 6 months. Patient and agreeable to treatment plan of care at this time, all questions were answered. Patient to follow-up in 6 months or sooner should any symptoms change or worsen. Flor Ugarte PA-C CHIEF COMPLAINT: follow up HISTORY OF PRESENT ILLNESS: Patrick Lyle is a 82 year old male, There were no vitals taken for this visit. with a PMH significant for HTN, GERD, depression, anxiety, heavy ETOH use. At last appointment patient was doing well on lyrica, last seen 05/10/22. Noted some parasthesias, alpha lipoic acid was started and increase water intake. Patient states that he feels the symptoms are slowly worsening. States that he feels his neuropathy is slowly creeping up his legs and is now to his mid thigh. This is equal bilaterally. Also notes that it is in his hands as well. No falls, but does state that it makes it feel harder to walk. Sees pain management monthly for chronic low back pain, takes oxycodone daily. 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 EMG previously shows evidence of polyneuropathy and lumbar imaging shows significant degenerative changes. Patient states that he does follow with pain management for his low back issues, states that he is too old for surgery but does get injections for this. Mostly tolerates the Lyrica well however it makes him very sleepy, and the day After taking his afternoon dose. Currently taking 300 mg daily. States that he was told by pain management to reach out and see if increasing his medication is beneficial for him. Patient reports that he has not had any new symptoms since last appointment, no weakness, no unilateral symptoms, no strokelike symptoms. No bowel bladder incontinence. Notes that he does have some generalized weakness in the lower extremities, continues to exercise daily but does not feel it is helping. REVIEW OF SYSTEMS GENERAL:No weight loss, malaise or fevers. HEENT:Negative for frequent or significant headaches, No changes in hearing or vision, no nose bleeds or other nasal problems NECK:Negative for lumps, goiter, pain and significant neck swelling RESPIRATORY: Negative for cough, wheezing or shortness of breath. CARDIOVASCULAR: Negative for chest pain, leg swelling or palpitations. GASTROINTESTINAL: Negative for abdominal discomfort, blood in stools or black stools or change in bowel habits GENITOURINARY: No history of dysuria, frequency or incontinence MUSCULOSKELETAL: Negative for joint pain or swelling, back pain or muscle pain. NEUROLOGIC:Negative for focal numbness or weakness, headaches and dizziness or syncope, vision changes, speech/languag changes - EXCEPT that as per HPI above. SKIN:Negative for lesions, rash, and itching. PSYCHIATRIC: Negative for sleep disturbance, mood disorder and recent psychosocial stressors. HEMATOLOGIC/LYMPHATIC/IMMUNOLOGIC :Negative for prolonged bleeding, bruising easily or swollen nodes. ENDOCRINE: Negative for cold or heat intolerance, polyuria, polydipsia and goiter. The remainder of the ROS was reviewed and is negative. LAB/IMAGING: Those performed since patient's last visit have been reviewed. None since last appointment MEDICATIONS: pregabalin (LYRICA) 75 mg capsule Take 1 cap in AM and afternoon and 2 caps QHS. Melatonin 5 mg cap Take 5 mg by mouth daily at bedtime. atorvastatin (LIPITOR) 40 mg tablet Take 40 mg by mouth daily at bedtime. prazosin (MINIPRESS) 2 mg cap Take 2 mg by mouth daily at bedtime. amLODIPine (NORVASC) 5 mg tablet Take 5 mg by mouth once daily. nabumetone (RELAFEN) 750 mg tablet Take 750 mg by mouth twice daily. Taken between oxycodone doses donepezil (ARICEPT) 10 mg tablet Take 5 mg by mouth daily at bedtime. Takes 1/2 tablet for 5mg qhs lisinopril (ZESTRIL, PRINIVIL) 40 mg tablet Take 40 mg by mouth once daily. calcium carbonate (TUMS) 500 mg chew Take by mouth twice daily. tolnaftate (TINACTIN TOPICAL) Apply to affected area. naloxone HCl (NARCAN NASAL) Use in the nose. calcium carbonate (TUMS CALCIUM FOR LIFE BONE ORAL) Take by mouth. cholecalciferol (VITAMIN D3) 1,000 unit tab tablet Take 1,000 Units by mouth once daily. alfuzosin SR (UROXATRAL) 10 mg 24 hr tablet Take 10 mg by mouth once daily. docusate sodium (COLACE) 100 mg capsule Take 100 mg by mouth three times daily. oxyCODONE-acetaminophen (PERCOCET) 5-325 mg tablet Take 1 tablet by mouth three times daily. POTASSIUM 99 MG TAB Take one(1) tablet three times daily. DULoxetine (CYMBALTA) 20 mg capsule Take 1 capsule by mouth once daily. pseudoephedrine (SUDAFED) 30 mg tablet Take 30 mg by mouth once daily. (Patient not taking: Reported on 05/10/2022) oxyCODONE-acetaminophen 5-325 mg tablet Take 1-2 tablets by mouth every 4 hours as needed. (Patient not taking: Reported on 05/10/2022) fexofenadine (KILLIAN) 180 mg tablet Take 180 mg by mouth daily at bedtime. (Patient not taking: Reported on 05/10/2022) GLUCOSAMINE/MSM/CHONDROIT SULF (GLUCOSAMINE 4OTX-EUL-YEFLIEMKL ORAL) Take by mouth twice daily. (Patient not taking: Reported on 05/10/2022) dicyclomine (BENTYL) 20 mg tablet Take 20 mg by mouth every 6 hours. (Patient not taking: Reported on 05/10/2022) magnesium 100 mg cap Take 100 mg by mouth as needed. (Patient not taking: Reported on 11/07/2022) COQ10, LIPOSOMAL UBIQUINOL, ORAL Take by mouth. (Patient not taking: Reported on 05/10/2022) polyethylene glycol 3350(MIRALAX 100 % ORAL POWDER) Use as directed. (Patient not taking: Reported on 05/10/2022) esomeprazole mag trihydrate(NEXIUM 20 MG CAP) Take one(1) capsule daily. (Patient not taking: Reported on 05/10/2022) metoprolol succinate(TOPROL XL 50 MG 24 HR TAB) Take one(1) tablet daily. HISTORIES PAST MEDICAL HISTORY Diagnosis Date Anxiety BPH (benign prostatic hyperplasia) Depression DM2 (diabetes mellitus, type 2) ([facility]) GERD (gastroesophageal reflux disease) HTN (hypertension) Lumbar pain Lumbar stenosis History reviewed. No pertinent family history. SOCIAL HISTORY Social History Tobacco Use Smoking status: Never Smokeless tobacco: Never Substance Use Topics Alcohol use: Not Currently Comment: rare Drug use: Never PHYSICAL EXAMINATION BP 104/62 Pulse 64 Resp 18 Wt 97.3 kg (214 lb 9.6 oz) SpO2 97% GENERAL EXAM: General appearance: NAD, pleasant. HEENT: NC/AT, nasal congestion absent, no oral lesions, membranes moist. NECK: No masses, supple. Lungs: Breathing comfortably Extr: Moves all extremities without difficulty Skin: Cool to touch. No rash. Psych: Agitated NEUROLOGICAL EXAM: General: Awake, alert, oriented x3 (person,place,time), speech fluent, no dysarthria; comprehension, naming, repetition intact. Short and terminal clerk memory intact CN: PERRL, EOMI and without nystagmus, VFF to confrontation, facial sensation and strength are normal and symmetric, hearing is intact to finger rub bilaterally, palate and tongue movements are intact and symmetric. SCM and trapezius strength normal. Motor: Normal tone, bulk and strength (5/5) bilaterally (throughout extremities x4). Reflexes: absent reflexes to achilles bilaterally. 1/2 at patella. 2/2 UE. Coordination: FNF intact. No tremors. Sensation: Lower extremities: Decreased temperature to lower extremities bilaterally, worse to the medial aspect of the lower leg bilaterally. Slight decrease in sharp, but equally throughout lower extremities. Decreased vibration throughout, improving proximally. Upper extremities: Decreased to temperature throughout hands bilaterally. Intact vibration to MCP. Gait: Narrow based and stable with normal stride and arm swing. Assessment and Plan: ASSESSMENT/PLAN: 1. Neuropathy - (NOS) - ICD9: 355.9, ICD10: G62.9 (primary diagnosis) 2. Paresthesia of skin - ICD9: 782.0, ICD10: R20.2 Patient with slightly worsening of his paresthesias. Notes that he feels that his symptoms are slowly creeping up and on his hands. At last appointment, no abnormalities to small and large fibers on exam, but today does have some decreased sensation to temperature to the hands bilaterally. No large fiber findings. Etiology as to his neuropathy is unclear, history of diabetes but does have significant history of alcohol abuse in the past. Laboratory evaluation has been unremarkable thus far, patient requesting further work-up if possible. We will obtain additional laboratory studies including B12, MMA and inflammation markers to evaluate for any abnormalities. Discussed repeat EMG as he feels his symptoms are worsening, but patient deferred. Additionally, discussed referral to neuromuscular but patient deferring at this time as well. Patient's primary concern is treating his symptoms and preventing further worsening. Patient did start alpha lipoic acid at last appointment but notes no difference with this. Patient does see pain management monthly. Was told to discuss increasing Lyrica, patient notes that he is already taking 75 mg 4 times a day with a total of 300 mg a day. Patient does note significant daytime fatigue and would like to avoid any medications causing fatigue. Patient previously on gabapentin with no improvement with this medication. Did discuss Cymbalta patient not taking any others antidepressants at this time. Patient would like to try adding this medication, instructed to follow-up with pain management and discuss this medication change. We will start patient on 20 mg of Cymbalta to take daily. Patient and agreeable to treatment plan of care at this time, all questions were answered. Patient follow-up in 3 months or sooner should any symptoms change or worsen. Flor Ugarte PA-C I spent a total of 45 minutes on the date of the service which included preparing to see the patient, [id number] patient care, completing clinical documentation, obtaining and/or reviewing separately obtained history, performing a medically appropriate examination, counseling and educating the patient/family/caregiver, and ordering medications, tests, or procedures. This document has been created with the use of voice recognition technology. It may contain inaccuracies: (e.g. misspellings, inaccurate syntax or word sense) that have escaped review. documented in this encounter [facility] 10-26-2022 Miscellaneous Notes Will refill Lyrica for 3 months, has appointment for follow-up at 11-07-2022. PDMP website checked and validated. All prescriptions have been APPROPRIATELY filled. No suspicious activity was identified. 10/26/2022 by Flor Ugarte PA-C Original script sent for 40 day supply. TOMAS 05/10/22 NOV 11/07/22 [facility] Notes: ASSESSMENT/PLAN: 1. Neuropathy - (NOS) - ICD9: 355.9, ICD10: G62.9 (primary diagnosis 2. RLS (restless legs syndrome) - ICD9: 333.94, ICD10: G25.81 3. Spinal stenosis of lumbar region, unspecified whether neurogenic claudication present - ICD9: 724.02, ICD10: M48.061 Patient with significant improvement in symptoms after starting Lyrica 75 mg. Patient notes that he has no issues sleeping now that he started this medication. He does note that he still experiences paresthesias just past the knee constantly. He notes that since last visit he has noticed slightly more numbness and tingling to the left hand. Patient also endorses some mild weakness to the hands, difficulty holding onto his fork. Full strength on exam without any hyperreflexia, no concerns for myelopathy at this time. No radicular pain in the upper extremities. 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 Patient with history of heavy alcohol use, likely contributing to patient's symptoms. Patient inquired about any other means of preventing worsening of his symptoms. Discussed using alpha lipoic acid 600 mg daily as this has shown efficacy for patients with diabetic neuropathy, although patient does not have diabetes. Patient would like to try the supplement. Also discussed exercise, increasing hydration as patient only drinks 1 glass of water a day. Additionally discussed avoiding caffeine as patient drinks 1 soda a day. Other conservative measures were discussed and given to patient. No red flag signs or symptoms to warrant additional imaging at this time. Patient with full strength on exam. Regarding episode of back pain, patient notes he follows with pain monthly. He does receive lumbar injections for chronic pain, approximately every 6 months. Patient and agreeable to treatment plan of care at this time, all questions were answered. Patient to follow-up in 6 months or sooner should any symptoms change or worsen. Please advise. Thank you. DARLINE Burroughs Last Office Visit: 05/10/2022 Future Office Visit: 11/07/2022 Requested Prescriptions Pending Prescriptions Disp Refills pregabalin (LYRICA) 75 mg capsule 120 capsule 0 Sig: Take 1 cap in AM and afternoon and 2 caps QHS. Date of Last Labs: 06/05/2022 documented in this encounter [facility] 09-29-2022 Miscellaneous Notes Refill of Lyrica sent. PDMP website checked and validated. All prescriptions have been APPROPRIATELY filled. No suspicious activity was identified. 09/29/2022 by Flor Ugarte PA-C TOMAS: 05/10/22 with MQ NOV: 11/07/22-Follow up with MQ Last refill: 08/29/22 With 120 and 0 refills Netta Christianson MA Assessment and Plan: ASSESSMENT/PLAN: 1. Neuropathy - (NOS) - ICD9: 355.9, ICD10: G62.9 (primary diagnosis 2. RLS (restless legs syndrome) - ICD9: 333.94, ICD10: G25.81 3. Spinal stenosis of lumbar region, unspecified whether neurogenic claudication present - ICD9: 724.02, ICD10: M48.061 Patient with significant improvement in symptoms after starting Lyrica 75 mg. Patient notes that he has no issues sleeping now that he started this medication. He does note that he still experiences paresthesias just past the knee constantly. He notes that since last visit he has noticed slightly more numbness and tingling to the left hand. Patient also endorses some mild weakness to the hands, difficulty holding onto his fork. Full strength on exam without any hyperreflexia, no concerns for myelopathy at this time. No radicular pain in the upper extremities. 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 Patient with history of heavy alcohol use, likely contributing to patient's symptoms. Patient inquired about any other means of preventing worsening of his symptoms. Discussed using alpha lipoic acid 600 mg daily as this has shown efficacy for patients with diabetic neuropathy, although patient does not have diabetes. Patient would like to try the supplement. Also discussed exercise, increasing hydration as patient only drinks 1 glass of water a day. Additionally discussed avoiding caffeine as patient drinks 1 soda a day. Other conservative measures were discussed and given to patient. No red flag signs or symptoms to warrant additional imaging at this time. Patient with full strength on exam. Regarding episode of back pain, patient notes he follows with pain monthly. He does receive lumbar injections for chronic pain, approximately every 6 months. Patient and agreeable to treatment plan of care at this time, all questions were answered. Patient to follow-up in 6 months or sooner should any symptoms change or worsen. Flor Ugarte PA-C Patient has been identified by name and date of : Yes Last office visit in this department: 05/10/2022 RX INSTRUCTIONS: Patient aware RX will be sent to pharmacy. No need to notify patient. Patient phones requesting refills as follows: states patient is out of this medication Requested Prescriptions Pending Prescriptions Disp Refills pregabalin (LYRICA) 75 mg capsule 120 capsule 0 Sig: Take 1 cap in AM and afternoon and 2 caps QHS. Please review and advise. Leena Bryant documented in this encounter [facility] 08-29-2022 Miscellaneous Notes Refill for 30 days lyrica sent. PDMP website checked and validated. All prescriptions have been APPROPRIATELY filled. No suspicious activity was identified. 08/29/2022 by Flor Ugarte PA-C Patient's Jud phones requesting refills as follows: Requested Prescriptions Pending Prescriptions Disp Refills pregabalin (LYRICA) 75 mg capsule 120 capsule 0 Sig: Take 1 cap in AM and afternoon and 2 caps QHS. TOMAS: 05/10/22 NOV: 11/07/22 Last Refill: 07/27/22 #120 0 refill Muna Owen LPN documented in this encounter [facility] 07-11-2022 Miscellaneous Notes Spoke to and she will come get placard. Allison Valladares LPN Letter printed. Will need to call to machine operator hop picker. Allison Valladares LPN Patient Jud calling asking for handicap placard rx, she is wanting to get one. said can not walk very long distance any longer. would like to machine operator hop picker rx when ready. Please advise documented in this encounter [facility] 06-27-2022 Miscellaneous Notes Last OV: 05/10/22 Pt's reports pt takes 4 caps daily. Rx has pt taking 3 caps daily. Please review. Patient has been identified by name and date of : Yes Requested Prescriptions Pending Prescriptions Disp Refills pregabalin (LYRICA) 75 mg capsule 120 capsule 0 Sig: Take 1 cap in AM and afternoon and 2 caps QHS. RX INSTRUCTIONS: Patient aware RX will be sent to pharmacy. No need to notify patient. Randi Zapata LPN documented in this encounter [facility] 05-26-2022 Miscellaneous Notes TC to patient, spoke with patient and his regarding Lyrica refill that was sent in to pharmacy and scheduling lab work within a month. Patient and spouse verbalized understanding. Liz Motta LPN documented in this encounter [facility] 05-26-2022 Miscellaneous Notes TOMAS: 05/10/22 with MQ NOV: 11/07/22 with MQ Refill 04/05/22 qty: 120 and 0 refills Liz Motta LPN ASSESSMENT/PLAN 1. Neuropathy - (NOS) - ICD9: 355.9, ICD10: G62.9 (primary diagnosis 2. RLS (restless legs syndrome) - ICD9: 333.94, ICD10: G25.81 3. Spinal stenosis of lumbar region, unspecified whether neurogenic claudication present - ICD9: 724.02, ICD10: M48.061 Patient with significant improvement in symptoms after starting Lyrica 75 mg. Patient notes that he has no issues sleeping now that he started this medication. He does note that he still experiences paresthesias just past the knee constantly. He notes that since last visit he has noticed slightly more numbness and tingling to the left hand. Patient also endorses some mild weakness to the hands, difficulty holding onto his fork. Full strength on exam without any hyperreflexia, no concerns for myelopathy at this time. No radicular pain in the upper extremities. 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 Patient with history of heavy alcohol use, likely contributing to patient's symptoms. Patient inquired about any other means of preventing worsening of his symptoms. Discussed using alpha lipoic acid 600 mg daily as this has shown efficacy for patients with diabetic neuropathy, although patient does not have diabetes. Patient would like to try the supplement. Also discussed exercise, increasing hydration as patient only drinks 1 glass of water a day. Additionally discussed avoiding caffeine as patient drinks 1 soda a day. Other conservative measures were discussed and given to patient. No red flag signs or symptoms to warrant additional imaging at this time. Patient with full strength on exam. Regarding episode of back pain, patient notes he follows with pain monthly. He does receive lumbar injections for chronic pain, approximately every 6 months. Patient and agreeable to treatment plan of care at this time, all questions were answered. Patient to follow-up in 6 months or sooner should any symptoms change or worsen. Patient has been identified by name and date of : Yes, Provider Dr. Rodríguez Date 05/26/22 Time 8:50 am Spouse phones for refill(s): Requested Prescriptions Pending Prescriptions Disp Refills pregabalin (LYRICA) 75 mg capsule 120 capsule 0 Sig: Take 1 cap in AM and afternoon and 2 caps QHS. Date of last office visit in primary care: 05/10/22 next apt 11/07/22 Last 2 Encounter Wt Readings: Date: Wt: 05/10/2022 96.2 kg (212 lb) 12/12/2021 96.2 kg (212 lb) Previous labs/tests for medication: Not applicable Thank you. Joanna Jackson LPN documented in this encounter [facility] 05-10-2022 Note HNO ID: [id number] Author: Flor Ugarte PA-C Service: ? Author Type: Physician Inclusion Special Education Teacher Type: Progress Notes Filed: 05/10/2022 5:14 PM Note Text: ESTABLISHED PATIENT VISIT Last visit: 12/12/21 Dr. Rodríguez ASSESSMENT/PLAN: 1. Neuropathy - (NOS) - ICD9: 355.9, ICD10: G62.9 (primary diagnosis) 2. RLS (restless legs syndrome) - ICD9: 333.94, ICD10: G25.81 3. Spinal stenosis of lumbar region, unspecified whether neurogenic claudication present - ICD9: 724.02, ICD10: M48.061 Patient with lower extremity discomfort that I suspect is multifactorial and secondary to both underlying peripheral polyneuropathy (confirmed on prior EMG/NCV) as well as restless legs (circadian pattern to discomfort and at times improves with movement). While patient also has a history of lumbar spine disease (s/p surgery x4 with last complicated by infection per pt), the pattern of discomfort is inconsistent with a spinal etiology. Pt does follow with pain mgmt and is on oxycodone-acetaminophen scheduled QID, but at no time does it help with the lower ext discomfort, but only the back pain. An etiology of neuropathy is still needed, and thus lab work will be performed today. History does suggest known risk factors of ETOH use through the years as well as question of DM (per records). To further evaluated will order the following including Ferritin level for RLS: - SED RATE WESTERGREN - JORGE BY IFA WITH REFLEX - HEAVY METALS SCRN BL - HGB A1C - PROTEIN ELECTROPHORESIS SERUM W/INTERP - PROTEIN ELECT RND UR W/INTERP - FERRITIN BLD - VITAMIN B6/PYRIDOXIN - VITAMIN B1 (THIAMINE), WHOLE BLOOD - TSH BLD - T4 FREE/FREE THYROX For treatment and as gabapentin has provided no relief, will discontinue, and start patient on Lyrica - dosing at 75mg TID ([id number]) based on current gabapentin dose. SE and ADRs d/w pt and his . If no improvement later this week may further increase the dose at that time. We will send a copy of this note to pt's pain mgmt so that he is aware of the change. There are also hopes that Lyrica may treat back pain so that patient might be able to lower dose or d/c oxycodone. If pain mgmt prefers to take over dosing Lyrica, I am ok with this. If a reversible cause or other cause of neuropathy is determined through lab work, will treat or refer to the appropriate service as needed. Pt agrees with plan as above. Will follow up in 3 months but again be in contact with us sooner through [employer]. CHIEF COMPLAINT: Follow up HISTORY OF PRESENT ILLNESS: Patrick Lyle is a 82 year old male, There were no vitals taken for this visit. with a PMH significant for HTN, GERD, depression, anxiety, heavy ETOH use. Since last visit, patient notes significant improvement in symptoms after starting Lyrica. Patient notes that he has no difficulty sleeping through the night now. Does endorse persistent numbness throughout the legs just past the knee. Notes that his symptoms are gradually worsening. Since last visit he notes some worsening numbness in his left hand. Does note some occasional weakness of the hands (difficulty holding onto fork), unsure if this is secondary to the numbness. Patient denies any side effects on this medication. No new symptoms since last visit. Patient still does take oxycodone daily, every 8 hours for chronic back pain. He notes that he sees pain management every month, receives lumbar injections every 6 months. Patient does endorse some back pain this morning, has not had back pain since starting this medication. Patient denies any bowel or bladder incontinence, no saddle anesthesia, no weakness in the legs. Patient denies any muscle cramping, myalgias, falls. He does note some difficulty standing secondary to chronic knee pain and numbness in the feet. 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 Patient does exercise 2-3 times a week on a stationary bike, notes no improvement in his symptoms following exercise. Patient only drinks 1 to 2 glasses of water a day, 1 can of soda as well. Patient also with history of obstructive sleep apnea, was told he needed CPAP, refuses this. No other symptoms or complaints at this time. REVIEW OF SYSTEMS GENERAL:No weight loss, malaise or fevers. HEENT:Negative for frequent or significant headaches, No changes in hearing or vision, no nose bleeds or other nasal problems NECK:Negative for lumps, goiter, pain and significant neck swelling RESPIRATORY: Negative for cough, wheezing or shortness of breath. CARDIOVASCULAR: Negative for chest pain, leg swelling or palpitations. GASTROINTESTINAL: Negative for abdominal discomfort, blood in stools or black stools or change in bowel habits GENITOURINARY: No history of dysuria, frequency or incontinence MUSCULOSKELETAL: Negative for joint pain or swelling, back pain or muscle (more content not included)... [facility] 05-04-2022 Miscellaneous Notes On review, appears pt taking 3 caps per day. His Rx was actually for #120. Thus if taking 3 per day, she should still have at least 30 caps left. Please clarify. Thank you, Wolf Rodríguez MD PDMP website checked and validated. All prescriptions have been APPROPRIATELY filled. No suspicious activity was identified. 05/04/2022 by Wolf Rodríguez MD Patient's spouse calling back with request for refill of Lyrica. She says appointment scheduled for 05/10/22 but patient will be out of medication before then. Rani Craig RN TC to patient to schedule follow up appointment with PA or [facility] at the [facility] for Neuropathy (f/u was due in February). No answer. If patient calls back, please schedule a follow up. RADHAMES Burroughs Patient has been identified by name and date of : Yes, Provider Date Time Spouse phones for refill(s): Requested Prescriptions Pending Prescriptions Disp Refills pregabalin (LYRICA) 75 mg capsule 120 capsule 0 Sig: Take 1 cap in AM and afternoon and 2 caps QHS. Date of last office visit with pcp: Date of last office visit in primary care: OV with Dr. Rodríguez 12/12/21 Last 2 Encounter Wt Readings: Date: Wt: 12/12/2021 96.2 kg (212 lb) 08/28/2012 88 kg (194 lb) Previous labs/tests for medication: Not applicable Please advise. Thank you. Rani Craig RN documented in this encounter [facility] 05-01-2022 Note ORIGINAL EXAMINATION: BONE DENSITOMETRY 05/01/2022 4:27 pm TECHNIQUE: A bone density dual x-ray absorptiometry (DEXA) scan was performed of the lumbar spine and left hip on a [employer] system. COMPARISON: No prior DEXA available for comparison purposes. HISTORY: ORDERING SYSTEM PROVIDED HISTORY: Reason for Exam: Osteoporosis Screening FINDINGS: LEFT HIP: The bone mineral density in the total hip is measured at 1.105 g/cm2 corresponding to a T-score of 0.5. This is within the normal range by WHO criteria. The bone mineral density of the femoral neck is measured at 1.006 g/cm2 corresponding to a T-score of 0.6. This is within the normal range by WHO criteria. Lumbar Spine: The bone mineral density of the lumbar spine, L1 through L4 is measured at 2.071 g/cm2 corresponding to a T-score of 8.9. This is within the normal range by WHO criteria. IMPRESSION: Normal bone mineralization by WHO criteria. Interpreted by: Elvia Isabel Preliminary Report By: Elvia Isabel Electronically signed By Elvia Isabel Dictated Date: 05/01/2022 5:14:20 PM Prelim Date: 05/01/2022 5:16:31 PM Sign Date: 05/01/2022 5:16:31 PM Ordering Provider: JANINA WELLS [facility] 05-01-2022 Note ORIGINAL EXAMINATION: BONE DENSITOMETRY 05/01/2022 4:27 pm TECHNIQUE: A bone density dual x-ray absorptiometry (DEXA) scan was performed of the lumbar spine and left hip on a [employer] system. COMPARISON: No prior DEXA available for comparison purposes. HISTORY: ORDERING SYSTEM PROVIDED HISTORY: Reason for Exam: Osteoporosis Screening FINDINGS: LEFT HIP: The bone mineral density in the total hip is measured at 1.105 g/cm2 corresponding to a T-score of 0.5. This is within the normal range by WHO criteria. The bone mineral density of the femoral neck is measured at 1.006 g/cm2 corresponding to a T-score of 0.6. This is within the normal range by WHO criteria. Lumbar Spine: The bone mineral density of the lumbar spine, L1 through L4 is measured at 2.071 g/cm2 corresponding to a T-score of 8.9. This is within the normal range by WHO criteria. IMPRESSION: Normal bone mineralization by WHO criteria. Interpreted by: Elvia Isabel Preliminary Report By: Elvia Isabel Electronically signed By Elvia Isabel Dictated Date: 05/01/2022 5:14:20 PM Prelim Date: 05/01/2022 5:16:31 PM Sign Date: 05/01/2022 5:16:31 PM Ordering Provider: JANINA [facility] 04-05-2022 Miscellaneous Notes [facility] and [facility]. All prescriptions have been APPROPRIATELY filled. No suspicious activity was identified. 04/05/2022 by Wolf Rodríguez MD Patient has been identified by name and date of : Yes, Provider Dr Rodríguez Date 04/04/22 Time 1647. Spouse phones for refill(s): Requested Prescriptions Pending Prescriptions Disp Refills pregabalin (LYRICA) 75 mg capsule 120 capsule 0 Sig: Take 1 cap in AM and afternoon and 2 caps QHS. Date of last office visit in primary care: 12/12/21 Future visit: none Last 2 Encounter Wt Readings: Date: Wt: 12/12/2021 96.2 kg (212 lb) 08/28/2012 88 kg (194 lb) Previous labs/tests for medication: Blood Pressure: BUN (mg/dL) Date Value 09/15/2012 22 Sodium (mmol/L) Date Value 09/15/2012 136 Last 1 Encounter BP Readings: Date: BP: 12/12/2021 122/60 Liver Function: ALT (U/L) Date Value 09/15/2012 6 AST (U/L) Date Value 09/15/2012 16 Please advise. Thank you. Aparna Washington RN documented in this encounter [facility] 03-06-2022 Miscellaneous Notes [facility] checked and validated. All prescriptions have been APPROPRIATELY filled. No suspicious activity was identified. 03/06/2022 by Wolf Rodríguez MD Patient phones requesting refills as follows: Requested Prescriptions Pending Prescriptions Disp Refills pregabalin (LYRICA) 75 mg capsule 120 capsule 1 Sig: Take 1 cap in AM and afternoon and 2 caps QHS. Assessment and Plan: OV 12/12/2021 ASSESSMENT/PLAN: 1. Neuropathy - (NOS) - ICD9: 355.9, ICD10: G62.9 (primary diagnosis) 2. RLS (restless legs syndrome) - ICD9: 333.94, ICD10: G25.81 3. Spinal stenosis of lumbar region, unspecified whether neurogenic claudication present - ICD9: 724.02, ICD10: M48.061 Patient with lower extremity discomfort that I suspect is multifactorial and secondary to both underlying peripheral polyneuropathy (confirmed on prior EMG/NCV) as well as restless legs (circadian pattern to discomfort and at times improves with movement). While patient also has a history of lumbar spine disease (s/p surgery x4 with last complicated by infection per pt), the pattern of discomfort is inconsistent with a spinal etiology. Pt does follow with pain mgmt and is on oxycodone-acetaminophen scheduled QID, but at no time does it help with the lower ext discomfort, but only the back pain. An etiology of neuropathy is still needed, and thus lab work will be performed today. History does suggest known risk factors of ETOH use through the years as well as question of DM (per records). To further evaluated will order the following including Ferritin level for RLS: - SED RATE WESTERGREN - JORGE BY IFA WITH REFLEX - HEAVY METALS SCRN BL - HGB A1C - PROTEIN ELECTROPHORESIS SERUM W/INTERP - PROTEIN ELECT RND UR W/INTERP - FERRITIN BLD - VITAMIN B6/PYRIDOXIN - VITAMIN B1 (THIAMINE), WHOLE BLOOD - TSH BLD - T4 FREE/FREE THYROX For treatment and as gabapentin has provided no relief, will discontinue, and start patient on Lyrica - dosing at 75mg TID ([id number]) based on current gabapentin dose. SE and ADRs d/w pt and his . If no improvement later this week may further increase the dose at that time. We will send a copy of this note to pt's pain mgmt so that he is aware of the change. There are also hopes that Lyrica may treat back pain so that patient might be able to lower dose or d/c oxycodone. If pain mgmt prefers to take over dosing Lyrica, I am ok with this. If a reversible cause or other cause of neuropathy is determined through lab work, will treat or refer to the appropriate service as needed. Pt agrees with plan as above. Will follow up in 3 months but again be in contact with us sooner through [employer]. Wolf Rodríguez MD Please review and advise. Mary Ann Taylor LPN Patient has been identified by name and date of : Yes Last office visit in this department: 12/12/2021 RX INSTRUCTIONS: Patient aware RX will be sent to pharmacy. No need to notify patient. Patient phones requesting refills as follows: Requested Prescriptions Pending Prescriptions Disp Refills pregabalin (LYRICA) 75 mg capsule 120 capsule 1 Sig: Take 1 cap in AM and afternoon and 2 caps QHS. Please review and advise. NIC Ya documented in this encounter [facility] 02-10-2022 Note HNO ID: [id number] Author: RT Joanie(R) Service: ? Author Type: Financial Services Associate Type: Progress Notes Filed: 02/10/2022 11:07 AM Note Text: Radiology Service Progress Note PATIENT NAME: Patrick Lyle DATE OF SERVICE: February 10, 2022 TIME: 10:41 AM PATIENT IDENTITY VERIFICATION COMPLETED USING TWO (2) IDENTIFIERS: Name and Date of confirmed by patient verbally. FALL SCREENING: Has the patient had 2 falls in the last year or 1 fall with injury or currently using an Ambulatory Assistive Device (Walker, Cane, Wheelchair, Crutches, etc.)? No PATIENT GENDER DATA: Male PATIENT RELEVANT IMPLANT DATA REVIEWED: Yes RADIOLOGY DEPARTMENT: General X-ray: Exam(s) Completed: Spine X-Ray(s): Lumbar AP / LAT / L5-S1 / OBL / FLEX-EXT PERIPHERAL IV DATA: Not applicable SIGNED BY: RT Joanie(R) February 10, 2022 10:41 AM [facility] 01-03-2022 Miscellaneous Notes PDMP website checked and validated. All prescriptions have been APPROPRIATELY filled. No suspicious activity was identified. 01/03/2022 by Wolf Rodríguez MD Patient's calls requesting refills for Lyrica. Patient's dose was increased to 1 in am, 1 in afternoon, and 2 at bedtime. Since there was a dose change patient is out of medication. Please update prescription and send prescription to [facility]. .Please review and advise, Emily Latif RN documented in this encounter [facility] 12-23-2021 Miscellaneous Notes (Jud) calls to update provider on pain and numbness to legs and feet. Jud reports that patient is taking the 2 Pregabalin around 10 pm every night and then an oxycodone around 12 am. Patient is still getting up with pain between 3 and 4 am but overall it has improved. Patient is resting a little better and sleeping more. Jud reports that she is going to adjust the times on 2 Pregabalin to 12 am and Oxycodone to between 2 to 3 am and see how patient does. Jud will update provider on progress. Monalisa Pace RN documented in this encounter [facility] 12-19-2021 Miscellaneous Notes Patient aware of provider recommended follow up. Verbalizes understanding. Mary Ann Taylor LPN Message left for patient's to call office for update. Mary Ann Taylor LPN Please have patient increase does such that he takes 2 capsules at bedtime in addition to the 1 in am and 1 in afternoon and we will see if this improves symptoms. Thank you, Wolf Rodríguez MD Patient's Jud call back with update. Patient has completely stopped Gabapentin and continues to be on Lyrica 75 mg three times a day. Patient is still experiencing numbness to legs and feet where he continues to have issues walking and navigating. The blister on patient's bilateral feet are starting to clear. Patient had seen pain management Dr. Merida yesterday and were told that pain management is ok with medication adjustments. Emily Latif RN documented in this encounter [facility] 02-18-2021 Hospital Discharge instructions Patient Education 02/18/2021 17:06:19 Arthralgia Arthralgia Arthralgia is the term for pain in or around the joint. It is a symptom, not a disease. This pain may involve one or more joints. In some cases, the pain moves from joint to joint. There are many causes for joint pain. These include: Injury Osteoarthritis (wearing out of the joint surface) Gout (inflammation of the joint due to crystals in the joint fluid) Infection inside the joint Bursitis (inflammation of the fluid-filled sacs around the joint) Autoimmune disorders such as rheumatoid arthritis or lupus Tendonitis (inflammation of chords that attach muscle to bone) Home care Rest the involved joint(s) until your symptoms improve. You may be prescribed pain medicine. If none is prescribed, you may use acetaminophen or ibuprofen to control pain and inflammation. Follow-up care Follow up with your healthcare provider or as advised. When to seek medical advice Contact your healthcare provider right away if any of the following occurs: Pain, swelling, or redness of joint increases Pain worsens or recurs after a period of improvement Pain moves to other joints You cannot bear weight on the affected joint You cannot move the affected joint Joint appears deformed New rash appears Fever of 100.4 F (38 C) or higher, or as directed by your healthcare provider [id number] [employer]. [address] [place] [address], [place] [address]. All rights reserved. This information is not intended as a substitute for professional medical care. Always follow your healthcare professional's instructions. Follow Up Care 02/18/2021 16:28:19 With:JANINA WELLS DO Address: [phone] When:3-5 days [facility] Evaluation + Plan note Future Appointments Appointment Date:02/02/2021 10:00:00 AM Scheduled Provider:JANINA WELLS DO Location:[facility] Appointment Type:PC OV Follow Up Appointment Date:02/15/2021 11:00:00 AM Scheduled Provider:JANINA WELLS DO Location:[facility] Appointment Type:PC OV [facility] Evaluation + Plan note Future Appointments Appointment Date:03/29/2021 10:00:00 AM Scheduled Provider:JANINA WELLS DO Location:[facility] Appointment Type:PC OV Appointment Date:05/24/2021 11:00:00 AM Scheduled Provider:JANINA WELLS DO Location:[facility] Appointment Type:PC OV [facility] Evaluation + Plan note Future Appointments Appointment Date:05/24/2021 11:00:00 AM Scheduled Provider:JANINA WELLS DO Location:[facility] Appointment Type:PC OV Future Scheduled TestsXR Knee 3 Views Left 04/22/21XR Knee 3 Views Right 04/22/21 [facility] Evaluation + Plan note Future Appointments Appointment Date:10/10/2022 09:00:00 AM Scheduled Provider:JANINA WELLS DO Location:[facility] Appointment Type:PC OV Future Scheduled TestsThyroid Stimulating Hormone 04/18/22A1C Hemoglobin 04/18/22Complete Blood Count 04/18/22Lipid Profile 04/18/22Hepatitis C Antibody IgG 04/18/22Microalbumin Level Urine 04/18/22Vitamin D Level 04/18/22Urine Drug Screen 08/30/21Complete Metabolic Panel 04/18/22CT Angiography Chest w/ Contrast 01/17/23 [facility] Evaluation + Plan note Future Appointments Appointment Date:04/10/2023 10:00:00 AM Scheduled Provider:JANINA WELLS DO Location:[facility] Appointment Type:PC OV Future Scheduled TestsThyroid Stimulating Hormone 10/10/22A1C Hemoglobin 10/10/22Complete Blood Count 10/10/22Lipid Profile 10/10/22Hepatitis C Antibody IgG 10/10/22Albumin/Creatinine Ratio, Random Urine 10/10/22Vitamin D Level 10/10/22Complete Metabolic Panel 10/10/22CT Angiography Chest w/ Contrast 01/17/23 [facility] Evaluation + Plan note Future Appointments Appointment Date:04/10/2023 10:00:00 AM Scheduled Provider:JANINA WELLS DO Location:[facility] Appointment Type:PC OV Future Scheduled TestsThyroid Stimulating Hormone 10/10/22A1C Hemoglobin 10/10/22Complete Blood Count 10/10/22Lipid Profile 10/10/22Hepatitis C Antibody IgG 10/10/22Albumin/Creatinine Ratio, Random Urine 10/10/22Vitamin D Level 10/10/22Complete Metabolic Panel 10/10/22CT Angiography Chest w/ Contrast 01/17/23CT Thorax w/ Contrast 07/02/23 [facility] [place] [facility] Diagnosis Neuropathy - (NOS) RLS (restless legs syndrome) Restless legs syndrome (RLS) Spinal stenosis of lumbar region, unspecified whether neurogenic claudication present [facility] [place] [facility] Diagnosis Neuropathy - (NOS) RLS (restless legs syndrome) Restless legs syndrome (RLS) Spinal stenosis of lumbar region, unspecified whether neurogenic claudication present [facility] [place] [facility] Diagnosis Neuropathy - (NOS) RLS (restless legs syndrome) Restless legs syndrome (RLS) Spinal stenosis of lumbar region, unspecified whether neurogenic claudication present [facility] [place] [facility] Diagnosis Spinal stenosis of lumbar region, unspecified whether neurogenic claudication present- Primary [facility] [place] [facility] Diagnosis Neuropathy - (NOS) RLS (restless legs syndrome) Restless legs syndrome (RLS) Spinal stenosis of lumbar region, unspecified whether neurogenic claudication present [facility] [place] [facility] Diagnosis Neuropathy - (NOS)- Primary Paresthesia of skin Disturbance of skin sensation documented in this encounter [facility] note* Diagnosis Abnormal ANCA test- Primary Other and unspecified nonspecific immunological findings Neuropathy Mononeuritis of unspecified site documented in this [facility] [place] [facility] Diagnosis Neuropathy - (NOS) RLS (restless legs syndrome) Restless legs syndrome (RLS) Spinal stenosis of lumbar region, unspecified whether neurogenic claudication present documented in this encounter [facility] Narrative No data available for this section [facility] Discharge instructions No data available for this section [facility] Progress note No data available for this section [facility] Reason for Referral Status Reason Specialty Diagnoses / Procedures Referre d By Contact Referred To Contact Closed Radiology Diagnoses Lumbar stenosis with neurogenic claudication Procedures CT LUMBAR SPINE WO CONTRAST Maria Esther Clarke PA-C [address] [place] [id number] Specialty Diagnoses / Procedures Referred By Melissa ivey Referred To Contact Neurology Diagnoses Abnormal ANCA test Neuropathy Procedures CONSULT TO NEUROLOGY OFFICE/OUTPATIENT [facility] 60-74 MINUTES Flor Ugarte PA-C [address] [place] [address] Referral ID Status Reason Start Date Expiration Date Visits Requested Visits Authorized [id number] Authorized PCP Requested Referral 11/10/2022 11/10/2023 1 1 Discharge Instructions * Instructions* Ashley Cast RN - 09/09/2019 * Attachments The following attachments cannot be sent through Care Everywhere. * Myelogram ([facility]) documented in this encounter History of Present Illness * Ashley Cast RN - 09/09/2019 10:53 AM EDT Pt arrived to PACU from OR. Pt ID verified. Monitors applied with alarms on. Vital signs stable. * Alfonzo Mason, RN - 09/09/2019 10:30 AM EDT IR Procedures: This patient is here through [facility] for a Lumbar Myelogram . He verbalizes understanding of the procedural instructions. Dr. Horn has spoken to him. History, allergies, medications and lab results reviewed. Informed consent signed. Prepped and draped in sterile fashion. Time out was performed. He is on a monitor. Tolerated the procedure well. He is in no distress. Puncture site to hislower back has a band aid over it, No bleeding. No hematoma. He tolerated the CT portion if the exam. He did have a skin tear on his left forearm when rolling over onto the CT table. A dry dressing was applied to that. Report called to [facility]. Transfer to [facility] for recovery and discharge. 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, lumbar region, with neurogenic claudication Advance Directives No Advanced Directives Records FoundDocuments on File Type Date Recorded Patient Certified Surgical Technician Expl anation Advance Directives and Living Will Power of Auto Phone Installer Summary Purpose Family History No Family History Records FoundNo Family History Records Found No data available for this section No data available for this section No Family History Records Found Additional Source Comments (unrecognized sect ion and content) No Status Records FoundNo Status Records FoundNo Status Records Found INFORMATION SOURCE (unrecogn ized section and content) DATE CREATED AUTHOR AUTHOR'S ORGANIZ ATION 12/20/2022 [facility] DATE CREATED AUTHOR AUTHOR'S ORGANIZ ATION 03/17/2023 [facility] ([place]) Source Comments (unrecognize d section and content) In the event this informatio n is protected by the Federal Confidentiality of Alcohol and Drug Abuse Patient Records regulations: The Federal rules restrict any use of the information to criminally investigate or prosecute any alcohol or drug abuse patient.[facility] the event this information is protected by the Federal Confidentiality of Alcohol and Drug Abuse Patient Records regulations: The Federal rules restrict any use of the information to criminally investigate or prosecute any alcohol or drug abuse patient.[facility] the event this information is protected by the Federal Confidentiality of Alcohol and Drug Abuse Patient Records regulations: The Federal rules restrict any use of the information to criminally investigate or prosecute any alcohol or drug abuse patient.[facility] the event this information is protected by the Federal Confidentiality of Alcohol and Drug Abuse Patient Records regulations: The Federal rules restrict any use of the information to criminally investigate or prosecute any alcohol or drug abuse patient.[facility] the event this information is protected by the Federal Confidentiality of Alcohol and Drug Abuse Patient Records regulations: The Federal rules restrict any use of the information to criminally investigate or prosecute any alcohol or drug abuse patient.[facility] the event this information is protected by the Federal Confidentiality of Alcohol and Drug Abuse Patient Records regulations: The Federal rules restrict any use of the information to criminally investigate or prosecute any alcohol or drug abuse patient.[facility] Hospital[facility] the event this information is protected by the Federal Confidentiality of Alcohol and Drug Abuse Patient Records regulations: The Federal rules restrict any use of the information to criminally investigate or prosecute any alcohol or drug abuse patient.[facility] the event this information is protected by the Federal Confidentiality of Alcohol and Drug Abuse Patient Records regulations: The Federal rules restrict any use of the information to criminally investigate or prosecute any alcohol or drug abuse patient.[facility] the event this information is protected by the Federal Confidentiality of Alcohol and Drug Abuse Patient Records regulations: The Federal rules restrict any use of the information to criminally investigate or prosecute any alcohol or drug abuse patient.[facility] the event this information is protected by the Federal Confidentiality of Alcohol and Drug Abuse Patient Records regulations: The Federal rules restrict any use of the information to criminally investigate or prosecute any alcohol or drug abuse patient.[facility] the event this information is protected by the Federal Confidentiality of Alcohol and Drug Abuse Patient Records regulations: The Federal rules restrict any use of the information to criminally investigate or prosecute any alcohol or drug abuse patient.[facility] the event this information is protected by the Federal Confidentiality of Alcohol and Drug Abuse Patient Records regulations: The Federal rules restrict any use of the information to criminally investigate or prosecute any alcohol or drug abuse patient.[facility] Hospital[facility] the event this information is protected by the Federal Confidentiality of Alcohol and Drug Abuse Patient Records regulations: The Federal rules restrict any use of the information to criminally investigate or prosecute any alcohol or drug abuse patient.[facility] Hospital[facility] the event this information is protected by the Federal Confidentiality of Alcohol and Drug Abuse Patient Records regulations: The Federal rules restrict any use of the information to criminally investigate or prosecute any alcohol or drug abuse patient.[facility] Hospital[facility] the event this information is protected by the Federal Confidentiality of Alcohol and Drug Abuse Patient Records regulations: The Federal rules restrict any use of the information to criminally investigate or prosecute any alcohol or drug abuse patient.[facility] Hospital[facility] the event this information is protected by the Federal Confidentiality of Alcohol and Drug Abuse Patient Records regulations: The Federal rules restrict any use of the information to criminally investigate or prosecute any alcohol or drug abuse patient.[facility] Hospital[facility] the event this information is protected by the Federal Confidentiality of Alcohol and Drug Abuse Patient Records regulations: The Federal rules restrict any use of the information to criminally investigate or prosecute any alcohol or drug abuse patient.[facility] Hospital[facility] the event this information is protected by the Federal Confidentiality of Alcohol and Drug Abuse Patient Records regulations: The Federal rules restrict any use of the information to criminally investigate or prosecute any alcohol or drug abuse patient.[facility] Hospital[facility] the event this information is protected by the Federal Confidentiality of Alcohol and Drug Abuse Patient Records regulations: The Federal rules restrict any use of the information to criminally investigate or prosecute any alcohol or drug abuse patient.[facility] Reason for Visit (unrecogniz ed section and content) Reason Onset Date Comments Refill Request 01/03/2022 Reason Onset Date Comments Refill Request 03/04/2022 Reason Onset Date Comments Refill Request 04/04/2022 Reason Onset Date Comments Refill Request 05/03/2022 Reason Onset Date Comments Refill Request 05/26/2022 Reason Comments Refill Request Reason Onset Date Comments Refill Request 06/27/2022 Reason Comments handicap placard rx Reason Onset Date Comments Refill Request 08/29/2022 Reason Onset Date Comments Refill Request 09/28/2022 Reason Onset Date Comments Refill Request 10/26/2022 Reason Comments Follow Up Reason Comments Results Reason Onset Date Comments Refill Request 12/07/2022 Reason Comments medciation problem Care Teams (unrecognized sec tion and content) [employer] Relationship Specialty Start Date End Date Hortencia Luna DO PCP - General 02/18/08 [employer] Relationship Specialty Start Date End Date Hortencia Luna DO PCP - General 02/18/08 [employer] Relationship Specialty Start Date End Date Hortencia Luna DO PCP - General 02/18/08 [employer] Sergeant Relationship Specialty Start Date End Date Hortencia Luna DO PCP - General 02/18/08 [employer] Sergeant Relationship Specialty Start Date End Date Hortencia Luna DO PCP - General 02/18/08 [employer] Sergeant Relationship Specialty Start Date End Date Hortencia Luna DO PCP - General 02/18/08 [employer] Sergeant Relationship Specialty Start Date End Date Hortencia Luna DO PCP - General 02/18/08 [employer] Sergeant Relationship Specialty Start Date End Date Hortencia Luna DO PCP - General 02/18/08 [employer] Sergeant Relationship Specialty Start Date End Date Hortencia Luna DO PCP - General 02/18/08 [employer] Sergeant Relationship Specialty Start Date End Date Hortencia Luna DO PCP - General 02/18/08 [employer] Sergeant Relationship Specialty Start Date End Date Hortencia Luna DO PCP - General 02/18/08 [employer] Sergeant Relationship Specialty Start Date End Date Hortencia Luna DO PCP - General 02/18/08 [employer] Sergeant Relationship Specialty Start Date End Date Hortencia Luna DO PCP - General 02/18/08 Care Team (unrecognized sect ion and content) Care Team Personnel Name: ROMAINEPINKY JANINA Position: P4 Physician - Primary Care Member Role: Primary Care Physician Address: Address: [address] [place] [id number]- [place] Care Team Related Persons Name: ARIS LARA FOR RECORDS PERTAINING TO PATIENTS WHO ARE OR HAVE BEEN ENROLLED IN A CHEMICAL DEPENDENCY/SUBSTANCEABUSE PROGRAM, SOME INFORMATION MAY BE OMITTED. This clinical summary was aggregated from multiple sources. Caution should be exercised in using it in the provision of clinical care. This summary normalizes information from multiple sources, and as a consequence, information in this document may materially change the coding, format and clinical context of patient data. In addition, data may be omitted in some cases. CLINICAL DECISIONS SHOULD BE BASED ON THE PRIMARY CLINICAL RECORDS. [facility] [employer] provides no warranty or guarantee of the accuracy or completeness of information in this document.
[2023-04-02 13:04] LABS: BNP,B-Type NATRIURETIC PEPTIDE 30.4 pg/mL (0-100)
[2023-04-02 14:13] LABS: Anion Gap 6 (5-15); BUN 23 mg/dL (7-18); BUN/Creat Ratio 22.8 RATIO (10-20); Calcium,Total 9.1 mg/dL (8.5-10.1); Chloride 107 mmol/L (98-107); Creatinine, Serum 1.01 mg/dL (0.70-1.30); EST Glomerular Filtration Rate 75 mL/min (>60); Est Glom Filt Rate - Afr Amer 91 mL/min (>60); Glucose 106 mg/dL (74-106); Potassium 4.8 mmol/L (3.5-5.1); Sodium Level 140 mmol/L (136-145)
== END | disposition home or self-care (01) ==
LOC: LAB 11:53
PROVIDERS: PCP Student in an Organized Health Care Education/Training Program; Referring Provider Nurse Practitioner Family; Visit Provider Nurse Practitioner Family
DX: R06.09 Other forms of dyspnea (principal); Z95.0 Presence of cardiac pacemaker; I44.1 Atrioventricular block, second degree
CPT/HCPCS: 36415; 80048; 83880; 85025

== ENCOUNTER → 2023-05-07 | Outpatient (CLI) | payer MEDICARE, OTHER, SELFPAY ==
--- NOTE | 2023-05-07 13:49 | ECHOCS_ITS ---
Reason For Study: CARDIAC PACEMAKE Procedure This was a 2D Doppler, Color Flow transthoracic echocardiogram. The study was technically difficult. Exam performed in department. Left Ventricle Normal LV size. The estimated ejection fraction is 50 %. Stage 1 diastolic dysfunction. No regional wall motion abnormalities noted. Right Ventricle Normal RV size. ICD or pacer leads identified within the right ventricle. Normal systolic function. Atria Normal left atrium. Normal right atrium. Mitral Valve Normal mitral valve. Tricuspid Valve Normal tricuspid valve. Mild tricuspid valve insufficiency. Pulmonary artery systolic pressure is 34 mmHg. Aortic Valve Trisinus/trileaflet aortic valve. Pulmonic Valve Normal pulmonic valve. Mild (1+) pulmonic valve insufficiency. Great Vessels Normal aortic root. The pulmonary artery is normal size. Normal inferior vena cava. Pericardium/Pleural No pericardial effusion. Medication 22 gauge I.V. with prn adaptor inserted into left arm. Diluted definity 4ml given slow IV push to enhance endocardial definition. MMode/2D Measurements & Calculations LVIDd: 5.4 cm IVSd: 0.96 cm Ao root diam: 3.3 cm LVIDs: 3.7 cm LVPWd: 0.96 cm RVDd: 3.3 cm FS: 30.6 % LAV(MOD-bp): 50.2 ml LVAd ap4: 32.5 cm2 SV(MOD-sp4): 49.6 ml LAV(MOD-bp) Indexed: 23.2 ml/m2 LVLd ap4: 8.7 cm LAV(MOD-sp2): 42.7 ml EDV(MOD-sp4): 100.1 ml LAV(MOD-sp4): 48.7 ml EDV(sp4-el): 102.7 ml LVAs ap4: 21.6 cm2 LVLs ap4: 7.8 cm ESV(MOD-sp4): 50.6 ml ESV(sp4-el): 50.6 ml EF(MOD-sp4): 49.5 % EF(sp4-el): 50.7 % SV(sp4-el): 52.1 ml LA A4 area: 17.4 cm2 LA dimension(2D): 4.0 cm RA A4 area: 14.8 cm2 TAPSE: 1.9 cm Time Measurements MV dec time: 0.21 sec Doppler Measurements & Calculations MV E max roberth: 63.8 cm/sec Lat Peak E' Roberth: 9.0 cm/sec Med Peak E' Roberth: 7.1 cm/sec MV A max roberth: 77.2 cm/sec E/E' lat: 7.1 E/E' med: 9.0 MV E/A: 0.83 Ao V2 max: 121.1 cm/sec LV V1 max: 81.3 cm/sec PA V2 max: 83.2 cm/sec Ao max P.9 mmHg LV V1 max P.6 mmHg TR max roberth: 280.1 cm/sec TR max P.4 mmHg ECHO/Echo Complete W/ Contrast Interpretation Summary Normal LV size. The estimated ejection fraction is 50 %. Stage 1 diastolic dysfunction. Pulmonary artery systolic pressure is 34 mmHg. Contrast injection was performed. Ordering Physician: Dandy Espinosa/Alfredo Dang Referring Physician: JANINA WELLS Performed By: Mayra Pena RDCS
--- OUTSIDE RECORDS SUMMARY | 2023-05-07 16:03 | XMS RPT_ITS | CCD ---
Author Name Unknown Address [address] [place] [address] Organization [facility] Care Team Providers [employer] Consultant Name Role Phone JAYLEN Montgomery, Mary Ann Choudhury Unavailable Unavailable JAYLEN Montgomery, Mary Ann Choudhury Unavailable Unavailable JAYLEN Montgomery, Mary Ann Choudhury Unavailable Unavailable JAYLEN Montgomery, Mary Ann Choudhury Unavailable Unavailable Marcial, Ally Y Unavailable JAYLEN Montgomery, Mary Ann Choudhury Unavailable Unavailable Zully Sheehan RN Unavailable [phone] DeFinis, Harumi Y Unavailable Unavailable DeFinis, Harumi Y Unavailable Unavailable Marcial, Ally Y Unavailable JAYLEN Montgomery, Mary Ann Choudhury Unavailable Unavailable Physicians, [facility] Primary Care Provider JAYLEN Montgomery, Mary Ann Choudhury Unavailable Unavailable JANINA WELLS DO Primary Care Physician [phone] Angel Cruz DOlas R Primary Care Provider Jeremy DOVER Hortencia R Primary Care Provider FLOR UGARTE Attending Unavailable BROWN, HORTENCIA R Primary Care Unavailable BROWN, HORTENCIA R Primary Care Unavailable FLOR UGARTE Attending Unavailable BROWN, HORTENCIA R Primary Care Unavailable BROWN, HORTENCIA R Primary Care Unavailable SPOERJAZMÍN S Referring Unavailable BROWN, HORTENCIA R Primary Care Unavailable JAZMÍN BAGLEY S Attending Unavailable FLOR UGARTE Referring Unavailable BROWN, HORTENCIA R Primary Care Unavailable FLOR UGARTE Referring Unavailable BROWN, HORTENCIA R Primary Care Unavailable FLOR UGARTE Referring Unavailable BROWN, HORTENCIA R Primary Care Unavailable LEWIS CID DO Attending Unavailable JANINA WLELS DO Primary Care Unavailable JANINA WELLS DO Primary Care Unavailable JANINA WELLS DO Attending Unavailable JANINA WELLS DO Primary Care Unavailable DR HEIDI MCCORMICK MD Attending Unavailable JANINA WELLS DO Primary Care Unavailable PATRICK NICKERSON DO Attending Unavailable JANINA WELLS DO Primary Care Unavailable JANINA WELLS DO Attending Unavailable AMBER HARTMAN Attending Unavailable JANINA WELLS IV Referring Unavailable HORTENCIA CRUZ Primary Care Unavailable Allergies Allergy Classification Reported Allergen(s) Allergy Type Date of Onset Reaction(s) Facility (20 sources) ibuprofen; Translations: [ibuprofen] drug allergy 04-24-2012 Other: See Comments [facility] Work Phone: [phone] (18 sources) levoFLOXacin; Translations: [Levofloxacin] drug allergy 04-24-2012 mouth ulcers [facility] Work Phone: [phone] (20 sources) levoFLOXacin; Translations: [LEVOFLOXACIN] Drug Allergy 09-05-2012 Other: See Comments [facility], [place] Medications Current Medications Medication Drug Class(es) Dates [...] ACETAMINOPHEN 325 MG TABS As needed ACETAMINOPHEN [id number] Zully Sheehan RN Problems Active Problems Problem [...] Coronary arteriosclerosis; Translations: [Atherosclerotic heart disease of [place] coronary artery without angina pectoris] Onset: 3 05-01-2012 Chronic Diabetes mellitus without complication (18 sources) Diabetes mellitus; Translations: [Type 2 diabetes mellitus] Onset: 3 04-24-2012 Chronic Disorders of lipid metabolism (20 sources) Hyperlipidemia; Translations: [Hyperlipidemia, unspecified] Onset: 3 Resolved: 3 05-01-2012 Chronic Esophageal disorders (20 sources) Gastroesophageal reflux disease; Translations: [Gastro-esophageal reflux [...] sources) Vitamin D deficiency 02-18-2019 Chronic Osteoarthritis (11 sources) Bilateral osteoarthritis of knees; Translations: [Primary gonarthrosis, bilateral] Onset: 4 12-20-2018 Chronic Other bone disease and musculoskeletal [...] (1 source) Hand pain 03-06-2023 Episodic Other connective tissue disease (1 source) Bilateral adhesive capsulitis of shoulders; Translations: [Adhesive capsulitis of right shoulder] 04-26-2023 Episodic Other connective tissue disease (1 source) Adhesive capsulitis of right shoulder; Translations: [Adhesive capsulitis of both shoulders] Onset: 4 Episodic Other connective tissue disease (1 source) Adhesive capsulitis of left shoulder; Translations: [Adhesive capsulitis of both shoulders] Onset: 4 Episodic Other hereditary and degenerative nervous system [...] [Cervical post-laminectomy syndrome] Onset: 8 10-03-2019 Chronic Substance-related disorders (2 sources) Continuous opioid dependence [...] of regular medication use] Onset: 06-05-2022 Episodic Spondylosis; intervertebral disc disorders; other back problems (20 sources) Spinal stenosis of lumbar region; Translations: [Low back pain] Onset: 02-18-2008 02-18-2008 Episodic Results Test Name Value Interpretation Reference Range Facil ity Vital Signs Date Time Vital Sign Value Performing Clinician Facility 04-26-2023 09:15-0500 Heart rate 62 /min Amber Hartman MD Work Phone: [facility] 04-26-2023 09:15-0500 Respiratory rate 20 /min Amber Hartman MD Work Phone: [facility] 04-26-2023 09:15-0500 SaO2% (BldA) [Mass fraction] 94 % Amber Hartman MD Work Phone: [facility] 03-06-2023 06:22-0500 Blood Pressure Location LEWIS RDZRUFUSLEONELA DO [facility] 03-06-2023 06:22-0500 Blood Pressure Method LEWIS CID DO [facility] 03-06-2023 06:22-0500 Body temperature 97.88 [degF] LEWIS RUIZKA DO [facility] 03-06-2023 06:22-0500 Diastolic Blood Pressure Non-Invasive 73 mm[Hg] LEWIS RUIZKA DO [facility] 03-06-2023 06:22-0500 Heart rate 64 /min LEWIS CID DO [facility] 03-06-2023 06:22-0500 Respiratory rate 18 /min LEWISNEHEMIAS RUIZKA DO [facility] 03-06-2023 06:22-0500 Systolic Blood Pressure Non-Invasive 146 mm[Hg] LEWISNEHEMIAS RDZESKA DO [facility] 11-07-2022 10:48-0400 Body weight 97.34 kg Flor Ugarte PA-C Work Phone: [facility] 11-07-2022 10:48-0400 Diastolic blood pressure 62 mm[Hg] Flor ROBERTSONC Work Phone: [facility] 11-07-2022 10:48-0400 Heart rate 64 /min Flor Ugarte PA-C Work Phone: [facility] 11-07-2022 10:48-0400 Respiratory rate 18 /min Flor Ugarte PA-C Work Phone: [facility] 11-07-2022 10:48-0400 SaO2% (BldA) [Mass fraction] 97 % Flor Ugarte PA-C Work Phone: [facility] 11-07-2022 10:48-0400 Systolic blood pressure 104 mm[Hg] Flor Ugarte PA-C Work Phone: [facility] 02-18-2021 16:51-0500 Body height 180 cm SADIQ ALBERTO MD [facility] 02-18-2021 16:51-0500 Body temperature 97.88 [degF] SADIQ ALBERTO MD [facility] 02-18-2021 16:51-0500 Body weight 91 kg SADIQ ALBERTO MD [facility] 02-18-2021 16:51-0500 Diastolic blood pressure 97 mm[Hg] SADIQ ALBERTO MD [facility] 02-18-2021 16:51-0500 Heart rate 74 /min SADIQ ALBERTO MD [facility] 02-18-2021 16:51-0500 Respiratory rate 16 /min SADIQ ALBERTO MD [facility] 02-18-2021 16:51-0500 Systolic blood pressure 162 mm[Hg] SADIQ ALBERTO MD [facility] 09-09-2019 11:30-0400 BP Diastolic 92 mm[Hg] [facility] [place] 09-09-2019 11:30-0400 BP Systolic 175 mm[Hg] [facility] [place] 09-09-2019 11:30-0400 Pulse (Heart Rate) 71 /min [facility] [place] 09-09-2019 11:30-0400 Respiratory Rate 16 /min [facility], [place] 09-09-2019 11:15-0400 Pulse Oximetry 96 % [facility] [place] 09-09-2019 10:53-0400 Body Temperature 97 [degF] [facility] [place] 09-09-2019 09:13-0400 BMI (Body Mass Index) 28.31 kg/m2 [facility], [place] 09-09-2019 09:13-0400 Body weight 92.08 kg [facility] [place] 09-09-2019 09:13-0400 Height 180.3 cm [facility] [place] 09-12-2016 15:40-0400 BMI (Body Mass Index) 28.59 kg/m2 [facility] Work Phone: 09-12-2016 15:40-0400 BP Diastolic 70 mm[Hg] [facility] Work Phone: 09-12-2016 15:40-0400 BP Systolic 140 mm[Hg] Ally Marcial [facility] Work Phone: 09-12-2016 15:40-0400 Height 180.34 cm Allyerik [facility] Work Phone: 09-12-2016 15:40-0400 Pulse (Heart Rate) 64 /min Allyerik [facility] Work Phone: 09-12-2016 15:40-0400 Respiratory Rate 20 /min Ally [facility] Work Phone: 09-12-2016 15:40-0400 Weight 92.99 kg Ally Ceja [facility] Work Phone: 05-01-2012 10:22-0500 Heart rate 418 ms JAYLEN [facility] Work Phone: 05-01-2012 10:22-0500 Heart rate 62 /min JAYLEN [facility] Work Phone: 05-01-2012 09:48-0500 BMI (Body Mass Index) 28.42 kg/m2 JAYLEN [facility] Work Phone: 05-01-2012 09:48-0500 Body weight 92.08 kg JAYLEN [facility] Work Phone: 05-01-2012 09:48-0500 BP Diastolic 80 mm[Hg] JAYLEN [facility] Work Phone: 05-01-2012 09:48-0500 BP Systolic 120 mm[Hg] [facility] Work Phone: 05-01-2012 09:48-0500 Height 180.34 cm JAYLEN [facility] Work Phone: 05-01-2012 09:48-0500 Pulse (Heart Rate) 80 /min JAYLEN [facility] Work Phone: 05-01-2012 09:48-0500 Respiratory Rate 12 /min JAYLEN [facility] Work Phone: 05-01-2012 09:48-0500 Weight 92.08 kg JAYLEN [facility] Work Phone: Encounters Encounter Date Encounter Type Care Provider Facility Start: 04-26-2023 End: 04-26-2023 [facility] Start: 04-26-2023 End: 04-26-2023 Patient encounter procedure Amber Hartman MD Work Phone: [facility] Procedures Date Procedure Procedure Detail Performing Clinician Start: 09-09-2019 Ct lumbar spine w/o contrast material Maria Esther Clarke Work Phone: Start: 09-09-2019 XA SPECIAL ANGIOGRAPHY PROCEDURE Maria Esther Clarke Work Phone: Start: 09-09-2019 Prothrombin time Woodrow Singhl Work Phone: Start: 03-19-2017 Maintenance procedure for cardiac pacemaker system RIDDHI DUMONT [employer]GER [employer] Start: 10-02-2016 End: 10-02-2016 Pm device progr [...] Montgomery RN Arthroplasty of knee RIDDHI ADAIR [employer] Back structure, excl uding neck (body structure) RIDDHI DUMONT [employer]NAGER [employer] Bilateral replacemen t of knee joints SADIQ ALBERTO MD Cerebrovascular acci dent (disorder) RIDDHI DUMONT [employer] Methicillin resistan t Staphylococcus aureus (organism) RIDDHI DUMONT MANAGER DISTRIBUTION-CREDIT COLLECTOR Tonsillectomy SADIQ ALBERTO MD Plan of Treatment Date Care Activity Detail Author Start: 08-14-2030 Urine microalbumin profile [facility] Start: 11-08-2023 BP CONTROLLED (<130/80) BP CON TROLLED (<130/80) [facility] Start: 03-19-2023 Advance Directive Discussion Advance Directive Discussion [facility] Start: 12-12-2022 BP CONTROLLED (<130/80) BP CON TROLLED (<130/80) [facility] Start: 11-17-2022 Covid-19 Vaccine () Covid-19 Vaccine () [facility] Start: 11-17-2022 Influenza vaccination C [facility] Start: 11-07-2022 End: 01-07-2023 Angiotensin converting enzyme [Enzymatic activity/volume] in Serum or Plasma JIMMIE/ANGIOTENSIN BLD Lab Routine Neuropathy - (NOS) Expected: 11/07/2022, Expires: 01/07/2023 [facility] Work Phone: Immunizations Immunization Date Immunization Notes Care Provider [facility] 04-18-2022 pneumococcal polysaccharide vaccine, 23 valent; Translations: [Pneumovax 23] JANINA WELLS DO [facility] 12-27-2021 influenza (aIIV4) vaccine, age 65+ yr, quadrivalent, PF (FLUAD QUAD) Flor Ugarte PA-C Work Phone: [facility] 12-27-2021 influenza, high dose seasonal, preservative-free JANINA WELLS DO [facility] 12-27-2021 influenza virus vacc ine, unspecified formulation Flor Ugarte PA-C Work Phone: [facility] 01-14-2021 influenza (aIIV4) vaccine, age 65+ yr, quadrivalent, PF (FLUAD QUADRIVALENT) Wolf Rodríguez Jr., MD Work Phone: [facility] 01-14-2021 influenza nasal, unspecified formulation Flor Ugarte PA-C Work Phone: [facility] 01-14-2021 influenza virus vacc ine, unspecified formulation JANINA GAVINPINKY DOVER [facility] 01-14-2021 SARS-CoV-2 (COVID-19 ) mRNA-1273 vaccine JANINA ROMAINEPINKY DOVER [facility] 11-16-2020 pneumococcal conjuga te vaccine, 13 valent; Translations: [Prevnar 13] RIDDHI DUMONT MANAGER DISTRIBUTION-CREDIT COLLECTOR [facility] 08-14-2020 tetanus toxoid, redu jero diphtheria toxoid, and acellular pertussis vaccine, adsorbed Wolf Rodríguez Jr., MD Work Phone: [facility] 05-24-2020 COVID-19, mRNA, LNP- S, PF, 100 mcg/ 0.5 mL dose; Translations: [Moderna COVID-19 Vaccine] RIDDHI DUMONT MANAGER DISTRIBUTION-CREDIT COLLECTOR [facility] 04-26-2020 SARS-CoV-2 (COVID-19 ) mRNA-1273 vaccine RIDDHI DUMONT MANAGER DISTRIBUTION-CREDIT COLLECTOR [facility] 12-19-2019 influenza nasal, unspecified formulation Flor Ugarte PA-C Work Phone: [facility] 12-19-2019 influenza virus vacc ine, unspecified formulation RIDDHI DUMONT MANAGER DISTRIBUTION-CREDIT COLLECTOR [facility] Payers Date Payer Category Payer Medicare [id number] 2019 Medicare [id number] 2019 Unknown MMO MMO MEDICARE SUPPLEMENT [id number] 2019-Present [phone] [address] [place] [address] Indemnity [id number] 2018 Unknown MEDICAL M[employer] M [employer]UAL [address] xxxxxxxxxxxx 2018-Present [phone] [address] [place] [address] xxxxxxxxxxxx [id number] 2014 Medicare MEDICARE MEDICAR E PART A AND B xxxxxxxxxxx 2014-Present [phone] [place] [address] xxxxxxxxxxx [id number] 2007 Medicare MEDICARE MEDICAR E A AND B [id number] 2007-Present [phone] [address] [address] [place] [address] Medicare [id number] 2007 Medicare [id number] 1940 Unknown [id number] 1940 Unknown [id number] 1940 Unknown [id number] 1940 Unknown [id number] 1940 Unknown [id number] Social History Date Type Detail Facility Start: 09-09-2019 End: 09-26-2022 Tobacco smoking status NHIS Never smoker NATALIIA Louise Start: 09-09-2019 End: 04-26-2023 Alcohol intake Ex-drinker (finding) Claudine Louise Start: 1940 [facility] NATALIAI VILLANUEVA Exposure to SARS-CoV -2 (event) Unable to assess [facility] Sex Assigned At Male [facility] Start: 12-12-2021 Tobacco use and exposure Smokeless tobacco non-user [facility] Start: 09-05-2012 History SDOH Alcohol Comment rare [facility] Start: 12-02-2021 End: 12-12-2021 Exposure to SARS-CoV-2 (event) Not sure [facility] Start: 04-04-2022 End: 05-10-2022 History of Social function [facility] Start: 04-04-2022 End: 05-10-2022 Tobacco use panel [facility] National Score (1-100), lower number is lower risk 66 [facility] Functional Status Date Assessment Result Facility 03-06-2023 Functional Status ID band on, Allergy Band on, Call device within reach, Bed in low position, Wheels locked, Upper/Half-Length side-rails up, Visitor at bedside, Safety level maintained [facility] Mental Status Date Assessment Result Facility 03-06-2023 Mental Status Oriented x 4 [facility] Clinical Notes 02-18-2021 to 04-26-2023 Nusrat Devlin LPN - 04/26/2023 9:08 AM Amber Song MD - 04/26/2023 9:00 AM ESTTelephone Encounter - Veda Reece, MANAGER DISTRIBUTION.CREDIT COLLECTOR - 04/23/2023 7:05 AM ESTPatient InstructionsRadiology Note Date & Type Note Facility 04-26-2023 Note HNO ID: [id number] Author: NUSRAT DEVLIN LPN Service: ? Author Type: LICENSED NURSE Type: Progress Notes Filed: 04/26/2023 10:14 Note Text: Review of Systems Constitutional: Positive for chills. Negative for activity change, fever and unexpected weight change. Gastrointestinal: Negative for bowel retention or incontinence Genitourinary: Negative for difficulty urinating. Negative for bladder retention or incontinence Musculoskeletal: Positive for arthralgias, back pain, gait problem, joint swelling, myalgias, neck pain and neck stiffness. Neurological: Positive for weakness, numbness and headaches. Psychiatric/Behavioral: Positive for sleep disturbance. Negative for dysphoric mood and suicidal ideas. The patient is nervous/anxious. [facility] 04-26-2023 Note HNO ID: [id number] Author: AMBER HARTMAN MD Service: ? Author Type: Physician Type: Progress Notes Filed: 04/26/2023 10:14 Note Text: [facility] Today's Date: 04/26/2023 Name: Patrick Lyle : 1940 Purpose: New Patient Consultation Chief complaint: low back pain, bilateral shoulders and knees Referring Clinician: Janina Wells IV Pertinent Past Medical History: HTN, GERD, MDD, CAT, BPH, Stroke (2014) Pertinent Past Surgeries: Lumbar laminectomy L1-L5 (2007 - Dr. Presley; 2011 Dr. Bean), left knee replacement (2018), Right knee replacement, then revision (most recently 2016), Pacemaker (2016) History of Present Illness (HPI): 04/26/2023 - Initial HPI (Obtained by Amber Hartman M.D.). DURATION AND ONSET: The pain complaint has been present for approximately 20 years. The pain had a gradual onset. The mechanism of injury is unknown. He reports his low back pain is worse when standing and walking. Sitting relieves the pain, no radiation into the lower limbs. Bilateral knee pain is constant and diffuse, anterior, worse with standing and walking. He reports that he has had 10 years of progressive numbness and tingling from mid-thighs distally, EMG showed neuropathy. He has been seeing Dr. Del Angel for pain management, was unhappy with the customer service, is looking for someone to take over his medications. Bilateral shoulder pain is more recent, has not sought treatment yet. Has pain with overhead motion. No motion. RED FLAG SYMPTOMS: denies red flags. Current Pain Medications: Neuropathics: Lyrica 75mg qAM, 150mg qHS; Cymbalta 30mg daily, Effexor 37.5mg TID NSAIDS: Relafen 750mg BID PRN - takes sparingly Muscle Relaxants: reports that these are not helpful, but he takes one at night (did not see one on his medication list) Topicals: Other Prescription or OTC Pain Medications: Opioids (when applicable): Percocet /, #84/month - takes approximately TID Greenlight Questionnaire GREENLIGHT Completed Date 04/26/2023 Opioid Risk Tool Opiod Risk Tool Date Completed 04/26/2023 CAT-7 Anxiety Score 14 Completed Date 04/26/2023 PHQ9P Score 5 Completed Date 04/26/2023 Anti-depressants or Mood-Stabilizers: Effexor Anti-Coagulants: None Therapies Attended (Current or Most Recent): Physical Therapy - several years ago Treatment History: PAIN PROCEDURES: DATE PROCEDURE IMPROVEMENT 08/2021 Genicular Nerve Blocks - Right Knee (Del Angel) 1 hour relief 11/2019 Low back injections x 4 (E[facility]urals) No relief MEDICATIONS Taken TO DATE (for the chief complaint(s)): Neuropathics: Neurontin, Lyrica (Prebabalin), Cymbalta (Duloxetine), Effexor (Venlafaxine) NSAIDS: Motrin (Ibuprofen), Relafen (Nabumetone) Muscle Relaxants: Does not recall Topicals: None Other Prescription or OTC Pain Medications: None Opioids: Oxycodone (eg Percocet) Data Reviewed Today: Allergies: ALLERGIES Allergen Reactions Ibuprofen Other: See Comments PER PATIENT NO ISSUES WITH IBUPROFEN Levaquin [Levofloxa* Other: See Comments Blisters inside of mouth Social History Tobacco Use Smoking status: Never Smokeless tobacco: Never Vaping Use Vaping Use: Never used Substance Use Topics Alcohol use: Not Currently Comment: rare Drug use: Never INTAKE PAIN ASSESSMENT 12/07/2022 04/26/2023 Are you having pain associated with your visit today? Yes, Provider notified Yes, Provider notified Pain Scales Verbal (Numeric Rating or Visual Analog Scale) Verbal (Numeric Rating or Visual Analog Scale) Pain Level 5 6 Pain Location - Knee-Left Description - Aching Duration Amount of Time - - Duration Units - Years Frequency - Continuous Intervention/Comfort measure - Reposition;Relaxation;Medication; Exercise Comments - - Pain Assessment - - Compliance: PDMP website checked and validated on 04/26/2023 by Amber Hartman MD All prescriptions have been APPROPRIATELY filled. No suspicious activity was identified. Percocet 5/235, #84/mo (Current), Lyrica 75mg, #120/mo (Current) [facility] 04/26/2023 Questionnaire GREENLIGHT Completed Date 04/26/2023 Questionnaire Opiod Risk Tool Completed Date 04/26/2023 (All drug screens are appropriate unless indicated otherwise) Risk Assessment: CAT-7: CAT - 7 SCORES 04/26/2023 CAT-7 Score 14 (0-4) minimal anxiety, (5-9) mild anxiety, (10-14) moderate anxiety, (15-21) severe anxiety PHQ-9: PHQ-9 04/26/2023 Score 5 (0-4) minimal depression, (5-9) mild depression, (10-14) moderate depression, (15-19) moderately severe depression, (20-27) severe depression Opioid Risk Tool: Family History of Substance Abuse: 0 - No Personal History of Substance Abuse: 0 - No Age between 16-45: 0 - No History of Pre-Adol (more content not included)... [facility] 04-26-2023 History of Present illness Narrative Review of Systems Constitutional: Positive for chills. Negative for activity change, fever and unexpected weight change. Gastrointestinal: Negative for bowel retention or incontinence Genitourinary: Negative for difficulty urinating. Negative for bladder retention or incontinence Musculoskeletal: Positive for arthralgias, back pain, gait problem, joint swelling, myalgias, neck pain and neck stiffness. Neurological: Positive for weakness, numbness and headaches. Psychiatric/Behavioral: Positive for sleep disturbance. Negative for dysphoric mood and suicidal ideas. The patient is nervous/anxious. Images from the original note were not included. [facility] Today's Date: 04/26/2023 Name: Patrick Lyle : 1940 Purpose: New Patient Consultation Chief complaint: low back pain, bilateral shoulders and knees Referring Clinician: Janina Wells IV Pertinent Past Medical History: HTN, GERD, MDD, CAT, BPH, Stroke (2014) Pertinent Past Surgeries: Lumbar laminectomy L1-L5 (2007 - Dr. Presley; 2011 Dr. Bean), left knee replacement (2018), Right knee replacement, then revision (most recently 2016), Pacemaker (2016) History of Present Illness (HPI): 04/26/2023 - Initial HPI (Obtained by Amber Hartman M.D.). DURATION AND ONSET: The pain complaint has been present for approximately 20 years. The pain had a gradual onset. The mechanism of injury is unknown. He reports his low back pain is worse when standing and walking. Sitting relieves the pain, no radiation into the lower limbs. Bilateral knee pain is constant and diffuse, anterior, worse with standing and walking. He reports that he has had 10 years of progressive numbness and tingling from mid-thighs distally, EMG showed neuropathy. He has been seeing Dr. Del Angel for pain management, was unhappy with the customer service, is looking for someone to take over his medications. Bilateral shoulder pain is more recent, has not sought treatment yet. Has pain with overhead motion. No motion. RED FLAG SYMPTOMS: denies red flags. Current Pain Medications: Neuropathics: Lyrica 75mg qAM, 150mg qHS; Cymbalta 30mg daily, Effexor 37.5mg TID NSAIDS: Relafen 750mg BID PRN - takes sparingly Muscle Relaxants: reports that these are not helpful, but he takes one at night (did not see one on his medication list) Topicals: Other Prescription or OTC Pain Medications: Opioids (when applicable): Percocet /325, #84/month - takes approximately TID Greenlight Questionnaire GREENLIGHT Completed Date 04/26/2023 Opioid Risk Tool Opiod Risk Tool Date Completed 04/26/2023 CAT-7 Anxiety Score 14 Completed Date 04/26/2023 PHQ9P Score 5 Completed Date 04/26/2023 Anti-depressants or Mood-Stabilizers: Effexor Anti-Coagulants: None Therapies Attended (Current or Most Recent): Physical Therapy - several years ago Treatment History: PAIN PROCEDURES: DATE PROCEDURE IMPROVEMENT 08/2021 Genicular Nerve Blocks - Right Knee ([place]) 1 hour relief 11/2019 Low back injections x 4 (Epidurals) No relief MEDICATIONS Taken TO DATE (for the chief complaint(s)): Neuropathics: Neurontin, Lyrica (Prebabalin), Cymbalta (Duloxetine), Effexor (Venlafaxine) NSAIDS: Motrin (Ibuprofen), Relafen (Nabumetone) Muscle Relaxants: Does not recall Topicals: None Other Prescription or OTC Pain Medications: None Opioids: Oxycodone (eg Percocet) Data Reviewed Today: Allergies: ALLERGIES Allergen Reactions Ibuprofen Other: See Comments PER PATIENT NO ISSUES WITH IBUPROFEN Levaquin [Levofloxa* Other: See Comments Blisters inside of mouth Social History Tobacco Use Smoking status: Never Smokeless tobacco: Never Vaping Use Vaping Use: Never used Substance Use Topics Alcohol use: Not Currently Comment: rare Drug use: Never INTAKE PAIN ASSESSMENT 12/07/2022 04/26/2023 Are you having pain associated with your visit today? Yes, Provider notified Yes, Provider notified Pain Scales Verbal (Numeric Rating or Visual Analog Scale) Verbal (Numeric Rating or Visual Analog Scale) Pain Level 5 6 Pain Location - Knee-Left Description - Aching Duration Amount of Time - - Duration Units - Years Frequency - Continuous Intervention/Comfort measure - Reposition;Relaxation;Medication; Exercise Comments - - Pain Assessment - - Compliance: PDMP website checked and validated on 04/26/2023 by Amber Hartman MD All prescriptions have been APPROPRIATELY filled. No suspicious activity was identified. Percocet , #84/mo (Current), Lyrica 75mg, #120/mo (Current) AG SPINE COMBINATION 04/26/2023 Questionnaire GREENLIGHT Completed Date 04/26/2023 Questionnaire Opiod Risk Tool Completed Date 04/26/2023 (All drug screens are appropriate unless indicated otherwise) Risk Assessment: CAT-7: CAT - 7 SCORES 04/26/2023 CAT-7 Score 14 (0-4) minimal anxiety, (5-9) mild anxiety, (10-14) moderate anxiety, (15-21) severe anxiety PHQ-9: PHQ-9 04/26/2023 Score 5 (0-4) minimal depression, (5-9) mild depression, (10-14) moderate depression, (15-19) moderately severe depression, (20-27) severe depression Opioid Risk Tool: Family History of Substance Abuse: 0 - No Personal History of Substance Abuse: 0 - No Age between 16-45: 0 - No History of Pre-Adolescence Sexual Abuse: 0 - No Psychological Disease: 0 - No Risk Total: 0 Total Score Risk Category: Low Risk 0-3 (0-3, low risk or no risk; 4-7, moderate risk, 8+, high risk) Diagnostic Studies: Relevant Imaging: MRI Spine Report No resulted procedures found. Bone density 04/2022: normal X-ray lumbar and hips 01/2022: Lumbar spine :No fractures or dislocations are seen. Laminectomy defects L2-3 and 4 Severe disc space narrowing throughout the lumbar spine. Extensive anterior spur formation noted throughout the lumbar spine in the lower thoracic spine Flexion and extension:No fractures or dislocations are seen. No significant change in alignment with flexion and extension is seen. Marked narrowing of both hip joints CT Lumbar 2020: There is a moderate dextroscoliosis centered at L2-3. Disc space narrowing is noted diffusely. Vertebral body heights are maintained. The patient is status post multilevel laminectomy (L1 through L5). Axial images demonstrate no significant canal or foraminal stenosis at T11-12. There is no significant canal stenosis at T12-L1. Facet hypertrophy contributes to moderate right-sided foraminal narrowing. Laminectomy unroofs the canal at L1-2. There is no residual canal stenosis. Facet hypertrophy contributes to moderate to severe bilateral foraminal narrowing, worse on the left. Laminectomy unroofs the canal at L2-3 without residual stenosis. There is severe bilateral foraminal narrowing, worse on the right. Laminectomy successfully unroofs the canal at L3-4 without residual stenosis. There is moderate bilateral foraminal narrowing. Laminectomy successfully unroofs the canal at L4-5. There is no residual stenosis. Facet hypertrophy contributes to severe bilateral foraminal narrowing. There is no significant canal stenosis at L5-S1. Facet hypertrophy contributes to moderate bilateral foraminal narrowing, worse on the Electrodiagnostic Study (EMG): EMG 09/2021 - Sensorimotor neuropathy Recent Labs: Creatinine Date Value Ref Range Status 06/05/2022 1.09 0.73 - 1.22 mg/dL Final eGFR, Date Value Ref Range Status 09/15/2012 >60 Final Glucose, Point of Care Date Value Ref Range Status 09/15/2012 155 (A) 65 - 100 mg/dL Final Current Medications, Past Medical History, Past Surgical History, Family History, Social History and Review of Systems: On today's date, noted above, I have confirmed and edited as necessary, the PFSH and ROS obtained by others. Physical Exam: 04/26/23 0915 Pulse: 62 Resp: 20 SpO2: 94% Bilateral Shoulder: Palpation: No tenderness to palpation at Upper Trapezius, Middle Trapezius, Cervical paraspinals, Thoracic paraspinals, Bicipital groove, Acromioclavicular (AC) joint, Supraspinatus insertion Range of Motion: Abduction limited to 60' right, 75' left, ER to 20' right, 30' left, with pain at end range Special Tests: Non-painful (negative) Pollo-Kapoor, Neer's, Speed's Bilateral Knee(s): Inspection: No edema, prior knee replacements Palpation: No tenderness to palpation of medial and lateral joint lines, ligamentous insertions Range of Motion: Normal and non-painful active extension and flexion No crepitus Special Tests: No ligamentous laxity with Anterior drawer, Posterior drawer, Nav, Varus stress, Valgus stress Neuro-Lower: Neural Tension Signs: Negative slump in Bilateral lower limbs Sensation: intact to light touch in the L2-S2 Bilateral lower limb dermatomes Muscle Tone: Normal and symmetric throughout without clonus Strength: Iliopsoas (L2): 5 Left, 5 Right Quadriceps (L3) 5 Left, 5 Right Anterior Tibialis (L4): 5 Left, 5 Right Extensor Hallucis Longus (L5): 5 Left, 5 Right Gastrocnemius (S1): 5 Left, 5 Right Reflexes: Decreased 1+ and symmetric Patellar, Achilles Musculoskeletal-Lower: Inspection: Symmetric without atrophy Palpation: Lumbar Paraspinal Tenderness: None on Bilateral side(s) Paraspinal Spasms: None PSIS Tenderness: None on Bilateral side(s) Greater Trochanter Tenderness: None on Bilateral side(s) Spine Range of Motion: Flexion: Decreased 25% Without end range pain Extension: Decreased 75% With end range pain Hip Range of Motion: Right Hip: Internal Rotation: Decreased 50%; Pain at end range: None External Rotation: Normal; Pain at end range: None Left Hip: Internal Rotation: Normal; Pain at end range: None External Rotation: Normal; Pain at end range: None Sacroiliac Maneuvers: Deferred IMPRESSION: 83 year old male presents with complaint(s) of axial low back pain, facet-mediated, in setting of prior L1-5 laminectomy, no Medial branch blocks or Radiofrequency Ablation (RFA) to date. Bilateral knee osteoarthritis, prior knee replacements. 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 [facility]30 - he will try to help with insomnia Interventional Procedures: None We discussed SPRINT PNS for his knees, Medial branch blocks followed by RFA for the lumbar spine, intra-articular shoulder injections followed by suprascapular nerve block and then RFA or SPRINT PNS Studies: X-ray: Shoulder (Bilateral) - if he decides to resume with our practice Functional Druze: Physical Therapy Consultation (Land-Based) - we discussed doing this after shoulder injections Referrals: No additional considerations at present Follow-up: PRN basis - he would like us to take over his opioid management, which we had relayed to his PCP in advance that we would consult on medications and be available for interventional options, but that we would not take over chronic opioids. He will consider other providers in the area, which we discussed today. Depending on response to the above plan, consider: TBD Compliance and Clinic Policies Reviewed and/or Discussed Today: None Attribution: In addition to reviewing the information noted above, some elements copied from my most recent clinical note(s), including the physical exam (completed in entirety today), and the impression and plan sections, have been updated where appropriate. All reflect current medical decision making from today's date. Amber Hartman MD Pain Management [facility] documented in this encounter [facility] 04-23-2023 Miscellaneous Notes OK to schedule for back pain, consult for treatment only, no meds Records from PCP placed into scan Veda Reece APRN.CREDIT COLLECTOR documented in this encounter [facility] 03-06-2023 Hospital Discharge instructions Patient Education 03/06/2023 [...] body part Frequent bruising for unknown reasons [id number] [employer] [place] [address]. All rights reserved. This information is not intended as a substitute for professional medical care. Always follow your healthcare professional's instructions. Follow Up Care 03/06/2023 06:15:08 With:JANINA WELLS DO Address: [address] [place] [id number] [phone] When:2-4 days [facility] 03-06-2023 Note Discharge Instructions Thank you for allowing [facility] to assist you with your healthcare needs. [...] WELLS DO When Within 2-4 days Where: [address] [place] [address]- [phone] Allergies Levaquin Medications Please ask your primary [...] body part Frequent bruising for unknown reasons [id number] [employer]. [address], [place] [address]. All rights reserved. This information is not intended as a substitute for professional medical care. Always follow your healthcare professional's instructions. Additional Information VACCINATE! IT SAVES LIVES! Members of the community who have not yet received the COVID-19 vaccine and would like to receive it can visit one of [facility] vaccine clinics. There are many vaccine clinic locations within the [facility]. For locations and available times, please visit [email or web address] It is important to note that some COVID mobile vaccine clinics are held outdoors and may be canceled in rainy or stormy conditions. To learn more about pediatric vaccinations (ages 5-11), we invite you to visit the [employer] webpage. [email or web address] To learn more about the COVID-19 vaccine, we invite you to visit the CDC website for a list of frequently asked questions. https://www.cdc.gov/coronavirus/2 019-ncov/vaccines/faq.html [facility] Patient Portal Access Instructions: Stay connected with your healthcare team and access your personal medical information anytime with the [facility] Patient Portal. If you would like a full copy of your medical records please contact the [facility] Medical Records Department Sunday through Sunday between 8a.m. and 4:30p.m. Please follow the directions below to access the portal: 1.Access the email account you provided upon registration to the hospital.2.Look for an invitation email from [facility].3.Open the email and access the invitation link: Accept Invitation to [facility]4.Fill in the required keith to create your account. Sign into [email or web address] with your username and password that you [...] you will allow to register on the [facility] Patient Portal for access to your information. You can also access the [facility] Patient Portal on the [employer] saad. Simply click on Health Records under Health Data and then click on the [facility] logo. HOW TO SAFELY DISPOSE OF PRESCRIPTION [...] Call your local pharmacy or go to [email or web address] to find one close to you.3.Make use of household items: Use cat litter or old coffee grounds to dispose medications if other options are not available. Mix your drugs with these household products, seal them in an airtight container and throw it into the garbage. Call [facility]: [phone] to be sure your drugs can be [...] been reviewed and explained to me and I,DAYRONPATRICK M understand my current condition and have read and understand these discharge instructions. I have received a written copy of the plan/instructions. If I have questions, I am aware that I should contact my doctor. 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 Tee villalpando w/Viviana Ugarte: 11-07-22 documented in this encounter [facility] 12-12-2022 Miscellaneous Notes Pts called and is notified of providers message and instructions. She voices understanding. She reports they could not pick pack worker the 15 pills from [facility]. Called [facility] and they were able to push order through with an over ride as mail in pharmacy had filled first. Aparna Washington RN TC to patient with no answer. Left [...] his primary care doctor, Dr. Wells in [place].. states that patient only has enough of Cymbalta till Sunday. Patient has had no issues so far taking both so far. Please review and advise, Emily Latif, JAYLEN TC to with no answer. Left VM [...] name and date of : Yes, Provider Flor Ugarte, PAC Date 12/08/22 Time 10:17 am Spouse phones [...] Joanna Jackson LPN documented in this encounter [facility] 12-07-2022 Note HNO ID: [id number] Author: Jazmín Bagley MD Service: ? Author Type: Physician Type: Progress Notes Filed: 12/07/2022 3:03 PM Note Text: HPI: This is Mr. Patrick Lyle a 82 year old male from who presents to the [facility] neurology department with a chief complaint of neuropathy, positive ANCA. Referring provider: Flor Ugarte [address] [place] [address] HISTORY OF PRESENT ILLNESS: Patrick Lyle is [...] w/ SM polyneuropathy it was done in [place]. He describes the numbness as your legs [...] dates of lumbar spine surgery 06/2007 at [facility], September 2007, 2011 dr. Sullivan. His [...] IFA. Clinical correlation is required. Normal labs: jimmie, b12, mma, crp, esr, folate, cmp, cbc, [...] by mouth once daily. GLUCOSAMINE/MSM/CHONDROIT SULF (GLUCOSAMINE [id number] ORAL) Take by mouth twice daily. (Patient not taking: Reported on 05/10/2022) alfuzosin SR (UROXATRAL) 10 mg 24 hr tablet Take 10 mg by mouth once daily. dicyclomine (BENTYL) 20 mg tablet Take 20 mg by mouth every 6 hours. (Patient not taking: Reported on 05/10/2022) magnesium 100 mg cap Take 100 mg by mouth as needed (more content not included)... [facility] 12-07-2022 Miscellaneous Notes Spouse (Jud) calls to request prescription be sent to [facility]. Previously sent to wrong pharmacy. [facility] filled for 30 day prescription. Past OV: 11/07/2022 Nest OV: none Monalisa Pace RN documented in this encounter [facility] 11-13-2022 Miscellaneous Notes TC to pt who voiced understanding of below. Pt would like a new script sent to [facility] for 90 days of Cymbalta. Ordered pended. Allison Valladares LPN ----- Message from Flor Ugarte PA-C sent at 11/13/2022 12:30 PM EDT ----- B12 is low, supplement with regimen below. B12 <400: Vitamin B12 level <400, which indicates deficiency. You may start vitamin B12 supplements [available [id number]] orally, according to the following regimen: oVitamin B12, 2 mg (or 2000 micrograms) by mouth daily x1 month. Take together with folic acid 1 mg daily. oTHEN maintenance with 1 mg (or 1000 micrograms) daily thereafter. Your PCP may recheck vitamin B12 levels in about 6 months to ensure adequate repletion. documented in this encounter [facility] 11-10-2022 Miscellaneous Notes TC to pt who [...] in a consult. documented in this encounter [facility] 11-07-2022 Note HNO ID: [id number] Author: Flor Ugarte PA-C Service: ? Author Type: Physician V Belt Curer Type: Progress Notes Filed: 11/07/2022 12:36 PM [...] recent psychosocial stresso (more content not included)... [facility] 11-07-2022 Instructions Flor Ugarte PA-C - 11/07/2022 11:08 AM EDT Start Cymbalta 20mg daily Laboratory studies Follow up in three months documented in this encounter [facility] 11-07-2022 History of Present illness Narrative ESTABLISHED [...] taking: Reported on 05/10/2022) GLUCOSAMINE/MSM/CHONDROIT SULF (GLUCOSAMINE [id number] ORAL) Take by mouth twice daily. (Patient [...] dysarthria; comprehension, naming, repetition intact. Short and fci memory intact CN: PERRL, EOMI and without [...] which included preparing to see the patient, ocos-fz-vwwk patient care, completing clinical documentation, obtaining and/or reviewing separately obtained history, performing a medically appropriate examination, counseling and educating the patient/family/caregiver, and ordering medications, tests, or procedures. This document has been created with the use of voice recognition technology. It may contain inaccuracies: (e.g. misspellings, inaccurate syntax or word sense) that have escaped review. documented in this encounter [facility] 10-26-2022 Miscellaneous Notes Will refill Lyrica for 3 months, has appointment for follow-up at 11-07-2022. [facility] and [facility]. All prescriptions have been APPROPRIATELY filled. No suspicious activity was identified. 10/26/2022 by Flor Ugarte PA-C Original script sent for 40 day supply. [facility] 05/10/22 NOV 11/07/22 [facility] Notes: ASSESSMENT/PLAN: 1. Neuropathy - (NOS) - [...] Last Labs: 06/05/2022 documented in this encounter [facility] 09-29-2022 Miscellaneous Notes Refill of Lyrica sent. [...] advise. Leena Bryant documented in this encounter [facility] 08-29-2022 Miscellaneous Notes Refill for 30 days [...] Muna Owen LPN documented in this encounter [facility] 07-11-2022 Miscellaneous Notes Spoke to and she will come get placard. Allison Valladares LPN Letter printed. Will need to call to pick pack worker. Allison Valladares LPN Patient Jud calling asking for handstevep placard rx, she is wanting to get one. said can not walk very long distance any longer. would like to pick pack worker rx when ready. Please advise documented in this encounter [facility] 06-27-2022 Miscellaneous Notes Last OV: 05/10/22 Pt's [...] Randi Zapata LPN documented in this encounter [facility] 05-26-2022 Miscellaneous Notes TC to patient, spoke with patient and his regarding Lyrica refill that was sent in to pharmacy and scheduling lab work within a month. Patient and spouse verbalized understanding. Liz Motta LPN documented in this encounter [facility] 05-26-2022 Miscellaneous Notes TOMAS: 05/10/22 with MQ [...] Joanna Jackson LPN documented in this encounter [facility] 05-10-2022 Note HNO ID: [id number] Author: Flor Ugarte PA-C Service: ? Author Type: Physician V Belt Curer Type: Progress Notes Filed: 05/10/2022 5:14 PM [...] on Lyrica - dosing at 75mg TID ([id number]) based on current gabapentin dose. SE and [...] be in contact with us sooner through [facility]. CHIEF COMPLAINT: Follow up HISTORY OF PRESENT [...] pain or muscle (more content not included)... [facility] 05-04-2022 Miscellaneous Notes On review, appears pt [...] schedule follow up appointment with PA or AIR TRAFFIC INSTRUCTOR at the [place] location for Neuropathy (f/u was due in February). [...] Rani Craig RN documented in this encounter [facility] 05-01-2022 Note ORIGINAL EXAMINATION: BONE DENSITOMETRY 05/01/2022 4:27 pm TECHNIQUE: A bone density dual x-ray absorptiometry (DEXA) scan was performed of the lumbar spine and left hip on a Hologic system. COMPARISON: No prior DEXA available for [...] Sign Date: 05/01/2022 5:16:31 PM Ordering Provider: [facility] 05-01-2022 Note ORIGINAL EXAMINATION: BONE DENSITOMETRY 05/01/2022 4:27 pm TECHNIQUE: A bone density dual x-ray absorptiometry (DEXA) scan was performed of the lumbar spine and left hip on a Holo[employer] Button system. COMPARISON: No prior DEXA available for [...] Sign Date: 05/01/2022 5:16:31 PM Ordering Provider: [facility] 04-05-2022 Miscellaneous Notes PDMP website checked and validated. [...] Aparna Washington RN documented in this encounter [facility] 03-06-2022 Miscellaneous Notes PDMP website checked and validated. All prescriptions have been APPROPRIATELY filled. No suspicious activity was identified. 03/06/2022 by Wofl Rodríguez MD Patient phones requesting refills as [...] on Lyrica - dosing at 75mg TID ([id number]) based on current gabapentin dose. SE and [...] be in contact with us sooner through [facility]. Wolf Rodríguez MD Please review and advise. [...] advise. NIC Ya documented in this encounter [facility] 02-10-2022 Note HNO ID: [id number] Author: RT Joanie(R) Service: ? Author Type: Province Archivist Type: Progress Notes Filed: 02/10/2022 11:07 AM [...] RT Joanie(R) February 10, 2022 10:41 AM [facility] 01-03-2022 Miscellaneous Notes PDMP website checked and [...] Emily Latif RN documented in this encounter [facility] 12-23-2021 Miscellaneous Notes (Jud) calls to update [...] Monalisa Pace RN documented in this encounter [facility] 12-19-2021 Miscellaneous Notes Patient aware of provider [...] Emily Latif RN documented in this encounter [facility] 02-18-2021 Hospital Discharge instructions Patient Education 02/18/2021 [...] or as directed by your healthcare provider [phone] [employer]. [address] [place] [address]. All rights reserved. This information is not intended as a substitute for professional medical care. Always follow your healthcare professional's instructions. Follow Up Care 02/18/2021 16:28:19 With:JANINA WELLS DO Address: [phone] When:3-5 days [facility] Evaluation + Plan note Future Appointments Appointment Date:02/02/2021 10:00:00 AM Scheduled Provider:JANINA WELLS DO Location:[facility] Appointment Type: OV Follow Up Appointment Date:02/15/2021 11:00:00 AM Scheduled Provider:JANINA WELLS DO Location:[facility] Appointment Type:PC OV [facility] Evaluation + Plan note Future Appointments Appointment Date:03/29/2021 10:00:00 AM Scheduled Provider:JANINA WELLS DO Location:[facility] Appointment Type:PC OV Appointment Date:05/24/2021 11:00:00 AM Scheduled Provider:JANINA WELLS DO Location:[facility] Appointment Type:PC OV [facility] Evaluation + Plan note Future Appointments Appointment Date:05/24/2021 11:00:00 AM Scheduled Provider:JANINA WELLS DO Location:[facility] Appointment Type:PC OV Future Scheduled TestsXR Knee 3 Views Left 04/22/21XR Knee 3 Views Right 04/22/21 [facility] Evaluation + Plan note Future Appointments Appointment Date:10/10/2022 09:00:00 AM Scheduled Provider:JANINA WELLS DO Location:[facility] Appointment Type:PC OV Future Scheduled TestsThyroid Stimulating Hormone 04/18/22A1C Hemoglobin 04/18/22Complete Blood Count 04/18/22Lipid Profile 04/18/22Hepatitis C Antibody IgG 04/18/22Microalbumin Level Urine 04/18/22Vitamin D Level 04/18/22Urine Drug Screen 08/30/21Complete Metabolic Panel 04/18/22CT Angiography Chest w/ Contrast 01/17/23 [facility] Evaluation + Plan note Future Appointments Appointment Date:04/10/2023 10:00:00 AM Scheduled Provider:JANINA WELLS DO Location:[facility] Appointment Type:PC OV Future Scheduled TestsThyroid Stimulating Hormone 10/10/22A1C Hemoglobin 10/10/22Complete Blood Count 10/10/22Lipid Profile 10/10/22Hepatitis C Antibody IgG 10/10/22Albumin/Creatinine Ratio, Random Urine 10/10/22Vitamin D Level 10/10/22Complete Metabolic Panel 10/10/22CT Angiography Chest w/ Contrast 01/17/23 [facility] Evaluation + Plan note Future Appointments Appointment Date:04/10/2023 10:00:00 AM Scheduled Provider:JANINA WELLS DO Location:[facility] Appointment Type:PC OV Future Scheduled TestsThyroid Stimulating Hormone 10/10/22A1C Hemoglobin 10/10/22Complete Blood Count 10/10/22Lipid Profile 10/10/22Hepatitis C Antibody IgG 10/10/22Albumin/Creatinine Ratio, Random Urine 10/10/22Vitamin D Level 10/10/22Complete Metabolic Panel 10/10/22CT Angiography Chest w/ Contrast 01/17/23CT Thorax w/ Contrast 07/02/23 [facility]* Diagnosis Neuropathy - (NOS) RLS (restless legs syndrome) Restless legs syndrome (RLS) Spinal stenosis of lumbar region, unspecified whether neurogenic claudication present [facility]* Diagnosis Neuropathy - (NOS) RLS (restless legs syndrome) Restless legs syndrome (RLS) Spinal stenosis of lumbar region, unspecified whether neurogenic claudication present [facility]* Diagnosis Neuropathy - (NOS) RLS (restless legs syndrome) Restless legs syndrome (RLS) Spinal stenosis of lumbar region, unspecified whether neurogenic claudication present [facility]* Diagnosis Spinal stenosis of lumbar region, unspecified whether neurogenic claudication present- Primary documented [facility]* Diagnosis Neuropathy - (NOS) RLS (restless legs syndrome) Restless legs syndrome (RLS) Spinal stenosis of lumbar region, unspecified whether neurogenic claudication present [facility]* Diagnosis Neuropathy - (NOS)- Primary Paresthesia of skin Disturbance of skin sensation [facility]* Diagnosis Abnormal ANCA test- Primary Other and unspecified nonspecific immunological findings Neuropathy Mononeuritis of unspecified site [facility]* Diagnosis Neuropathy - (NOS) RLS (restless legs syndrome) Restless legs syndrome (RLS) Spinal stenosis of lumbar region, unspecified whether neurogenic claudication present [facility]* Diagnosis Lumbar spondylosis- Primary Lumbosacral spondylosis without myelopathy Primary osteoarthritis of both knees Primary localized osteoarthrosis, 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 course Narrative No data available for this section [facility] Hospital Discharge instructions No data available for this section [facility] Progress note No data available for this section [facility] Reason for Referral Status Reason Specialty Diagnoses / Procedures Referre d By Contact Referred To Contact Closed Radiology Diagnoses Lumbar stenosis with neurogenic claudication Procedures CT LUMBAR SPINE WO CONTRAST Maria Esther Clarke PA-C [address] [place] [address] Specialty Diagnoses / Procedures Referred By Melissa ivey Referred To Contact Neurology Diagnoses Abnormal ANCA test Neuropathy Procedures CONSULT TO NEUROLOGY OFFICE/OUTPATIENT [facility] 60-74 MINUTES Flor Ugarte PA-C [address] [place] [address] Referral ID Status Reason Start Date Expiration Date Visits Requested Visits Authorized [id number] Authorized PCP Requested Referral 11/10/2022 11/10/2023 1 1 Discharge Instructions * Instructions* Ashley Cast RN - 09/09/2019 * Attachments The following attachments cannot be sent through Care Everywhere. * Myelogram ([place]) documented in this encounter History of Present Illness * Ashley Cast RN - 09/09/2019 10:53 AM EDT Pt arrived to PACU from OR. Pt ID verified. Monitors applied with alarms on. Vital signs stable. * Alfonzo Mason RN - 09/09/2019 10:30 AM EDT IR Procedures: This patient is here through [facility] for a Lumbar Myelogram . He verbalizes [...] was applied to that. Report called to [facility]. Transfer to [facility] for recovery and discharge. 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 Advance Directives and Living Will Power of Directory Assistance Operator Summary Purpose Family History No Family History Records FoundNo Family History Records Found No data available for this section No data available for this section No Family History Records FoundNo Family History Records Found Additional Source Comments (unrecognized sect ion and content) No Status Records FoundNo Status Records FoundNo Status Records FoundNo Status Records Found INFORMATION SOURCE (unrecogn ized section and content) DATE CREATED AUTHOR AUTHOR'S ORGANIZ ATION 12/20/2022 [facility] DATE CREATED AUTHOR AUTHOR'S ORGANIZ ATION 03/17/2023 [facility] ([place]) DATE CREATED AUTHOR AUTHOR'S ORGANIZ ATION 04/27/2023 [facility] Source Comments (unrecognize d section and content) In the event this informatio n is protected by the Federal Confidentiality of Alcohol and Drug Abuse Patient Records regulations: The Federal rules restrict any use of the information to criminally investigate or prosecute any alcohol or drug abuse patient.[facility] Health[facility] the event this information is protected by the Federal Confidentiality of Alcohol and Drug Abuse Patient Records regulations: The Federal rules restrict any use of the information to criminally investigate or prosecute any alcohol or drug abuse patient.[facility] HealthIn the event this information is protected by the Federal Confidentiality of Alcohol and Drug Abuse Patient Records regulations: The Federal rules restrict any use of the information to criminally investigate or prosecute any alcohol or drug abuse patient.[facility] HealthIn the event this information is protected by the Federal Confidentiality of Alcohol and Drug Abuse Patient Records regulations: The Federal rules restrict any use of the information to criminally investigate or prosecute any alcohol or drug abuse patient.[facility] HealthIn the event this information is protected by the Federal Confidentiality of Alcohol and Drug Abuse Patient Records regulations: The Federal rules restrict any use of the information to criminally investigate or prosecute any alcohol or drug abuse patient.[facility] HealthIn the event this information is protected by the Federal Confidentiality of Alcohol and Drug Abuse Patient Records regulations: The Federal rules restrict any use of the information to criminally investigate or prosecute any alcohol or drug abuse patient.[facility] HealthIn the event this information is protected by the Federal Confidentiality of Alcohol and Drug Abuse Patient Records regulations: The Federal rules restrict any use of the information to criminally investigate or prosecute any alcohol or drug abuse patient.[facility] HealthIn the event this information is protected by the Federal Confidentiality of Alcohol and Drug Abuse Patient Records regulations: The Federal rules restrict any use of the information to criminally investigate or prosecute any alcohol or drug abuse patient.[facility] HealthIn the event this information is protected by the Federal Confidentiality of Alcohol and Drug Abuse Patient Records regulations: The Federal rules restrict any use of the information to criminally investigate or prosecute any alcohol or drug abuse patient.[facility] HealthIn the event this information is protected by the Federal Confidentiality of Alcohol and Drug Abuse Patient Records regulations: The Federal rules restrict any use of the information to criminally investigate or prosecute any alcohol or drug abuse patient.[facility] HealthIn the event this information is protected by the Federal Confidentiality of Alcohol and Drug Abuse Patient Records regulations: The Federal rules restrict any use of the information to criminally investigate or prosecute any alcohol or drug abuse patient.[facility] HealthIn the event this information is protected by the Federal Confidentiality of Alcohol and Drug Abuse Patient Records regulations: The Federal rules restrict any use of the information to criminally investigate or prosecute any alcohol or drug abuse patient.[facility] HealthIn the event this information is protected by the Federal Confidentiality of Alcohol and Drug Abuse Patient Records regulations: The Federal rules restrict any use of the information to criminally investigate or prosecute any alcohol or drug abuse patient.[facility] HealthIn the event this information is protected by the Federal Confidentiality of Alcohol and Drug Abuse Patient Records regulations: The Federal rules restrict any use of the information to criminally investigate or prosecute any alcohol or drug abuse patient.[facility] the event this information is protected by the Federal Confidentiality of Alcohol and Drug Abuse Patient Records regulations: The Federal rules restrict any use of the information to criminally investigate or prosecute any alcohol or drug abuse patient.[facility] HealthIn the event this information is protected by the Federal Confidentiality of Alcohol and Drug Abuse Patient Records regulations: The Federal rules restrict any use of the information to criminally investigate or prosecute any alcohol or drug abuse patient.[facility] HealthIn the event this information is protected by the Federal Confidentiality of Alcohol and Drug Abuse Patient Records regulations: The Federal rules restrict any use of the information to criminally investigate or prosecute any alcohol or drug abuse patient.[facility] the event this information is protected by the Federal Confidentiality of Alcohol and Drug Abuse Patient Records regulations: The Federal rules restrict any use of the information to criminally investigate or prosecute any alcohol or drug abuse patient.[facility] HealthIn the event this information is protected by the Federal Confidentiality of Alcohol and Drug Abuse Patient Records regulations: The Federal rules restrict any use of the information to criminally investigate or prosecute any alcohol or drug abuse patient.[facility] HealthIn the event this information is protected by the Federal Confidentiality of Alcohol and Drug Abuse Patient Records regulations: The Federal rules restrict any use of the information to criminally investigate or prosecute any alcohol or drug abuse patient.[facility] HealthIn the event this information is protected by the Federal Confidentiality of Alcohol and Drug Abuse Patient Records regulations: The Federal rules restrict any use of the information to criminally investigate or prosecute any alcohol or drug abuse patient.[facility] Reason for Visit (unrecogniz ed section and [...] Refill Request 12/07/2022 Reason Comments medciation problem Reason Comments New Patient Low Back Pain Knee Pain B/L Pain (Shoulder Pain) B/L Care Teams (unrecognized sec tion and content) [employer] Consultant Relationship Specialty Start Date End Date Hortencia Cruz DO PCP - General 02/18/08 [employer] Consultant Relationship Specialty Start Date End Date Hortencia Cruz DO PCP - General 02/18/08 [employer] Consultant Relationship Specialty Start Date End Date Hortencia Cruz DO PCP - General 02/18/08 [employer] Consultant Relationship Specialty Start Date End Date Hortencia Cruz DO PCP - General 02/18/08 [employer] Consultant Relationship Specialty Start Date End Date Hortencia Cruz DO PCP - General 02/18/08 [employer] Consultant Relationship Specialty Start Date End Date Hortencia Cruz DO PCP - General 02/18/08 [employer] Consultant Relationship Specialty Start Date End Date Hortencia Cruz DO PCP - General 02/18/08 [employer] Consultant Relationship Specialty Start Date End Date Hortencia Cruz PCP - General 02/18/08 [employer] Consultant Relationship Specialty Start Date End Date Hortencia Cruz PCP - General 02/18/08 [employer] Consultant Relationship Specialty Start Date End Date Jeremy Hortencia R, PCP - General 02/18/08 [employer] Consultant Relationship Specialty Start Date End Date Angel Cruzlas Donis PCP - General 02/18/08 [employer] Consultant Relationship Specialty Start Date End Date Angel Cruzlas Donis PCP - General 02/18/08 [employer] Consultant Relationship Specialty Start Date End Date JeremyHortencai PCP - General 02/18/08 [employer] Consultant Relationship Specialty Start Date End Date Jeremy Hortencia R, PCP - General 02/18/08 [employer] Consultant Relationship Specialty Start Date End Date Jeremy Hortencia Donis PCP - General 02/18/08 Care Team (unrecognized sect ion and content) Care Team Personnel Name: JANINA WELLS DO Position: P4 Physician - Primary Care Member Role: Primary Care Physician Address: Address: [address] [place] [id number] [place] Care Team Related Persons Name: ARIS [...] BE BASED ON THE PRIMARY CLINICAL RECORDS. [facility]. provides no warranty or guarantee of the accuracy or completeness of information in this document.
== END | disposition home or self-care (01) ==
PROVIDERS: PCP Student in an Organized Health Care Education/Training Program; Referring Provider Nurse Practitioner Family; Visit Provider Nurse Practitioner Family
DX: I44.1 Atrioventricular block, second degree (principal); Z95.0 Presence of cardiac pacemaker
CPT/HCPCS: 93306; Q9957; A4216; C8929

== ENCOUNTER → 2023-05-23 | Outpatient (CLI) | payer MEDICARE, OTHER, SELFPAY ==
[2023-05-23 16:19] LABS: Amphetamine Urine VISTA NEGATIVE (<1000 ng/mL); Barbiturate Urine VISTA NEGATIVE (< 200 ng/mL); Benzodiazepine Urine VISTA NEGATIVE (< 200 ng/mL); Cocaine Urine VISTA NEGATIVE (< 300 ng/mL); Ecstacy Urine VISTA NEGATIVE (< 500 ng/mL); Methadone Urine VISTA NEGATIVE (< 300 ng/mL); PCP Urine VISTA NEGATIVE (< 25 ng/mL); THC Urine VISTA NEGATIVE (< 50 ng/mL); Vista UDS pH Range 7
== END | disposition home or self-care (01) ==
PROVIDERS: PCP Student in an Organized Health Care Education/Training Program; Referring Provider Anesthesiology; Visit Provider Anesthesiology
DX: F11.20 Opioid dependence, uncomplicated (principal)
CPT/HCPCS: 80307

== ENCOUNTER → 2023-07-11 | Outpatient (CLI) | payer MEDICARE, OTHER, SELFPAY ==
--- NOTE | 2023-07-11 10:35 | RAD_ITS ---
STUDY: X-RAY - RIGHT WRIST REASON FOR EXAM: Male, 83 years old. Hand and wrist pain. TECHNIQUE: 3 view(s) of the wrist were obtained. COMPARISON: None. FINDINGS: Osteopenia. Severe arthrosis of the radiocarpal articulation. Mild arthrosis of the radioulnar joint. Marked loss of substance of the proximal carpal row with fragmentation and marked osteoarthritic changes. Moderate to severe arthrosis of the radial carpal row of the wrist. Cystic changes in the capitate and lunate. Moderate arthrosis of the first CMC joint. Vascular calcification and chondrocalcinosis. RAD/Wrist min 3 Views IMPRESSION: Osteopenia with diffuse moderate to marked osteoarthritic changes, particularly in the proximal carpal row and radiocarpal row of the wrist. Vascular calcification and chondrocalcinosis. No acute abnormality. Electronically Signed: Jatin James MD at 12:34 EDT ,
--- NOTE | 2023-07-11 10:35 | RAD_ITS ---
STUDY: X-RAY - RIGHT HAND REASON FOR EXAM: Male, 83 years old. Right hand pain. TECHNIQUE: 3 view(s) of the hand. COMPARISON: None. FINDINGS: Osteopenia. Severe arthrosis of the radiocarpal articulation. Mild arthrosis of the radioulnar joint. Marked loss of substance of the proximal carpal row with fragmentation and marked osteoarthritic changes. Moderate to severe arthrosis of the radial carpal row of the wrist. Cystic changes in the capitate and lunate. Moderate arthrosis of the first CMC joint. Moderate to severe arthrosis of the MCP and IP joints. Vascular calcification and chondrocalcinosis. RAD/Hand Min 3 Views IMPRESSION: Osteopenia with moderate to severe diffuse osteoarthritic changes, particularly in the proximal carpal row and radiocarpal row of the wrist. Chondrocalcinosis. Electronically Signed: Jatin James MD at 12:32 EDT ,
== END | disposition home or self-care (01) ==
LOC: RAD 10:21
PROVIDERS: PCP Student in an Organized Health Care Education/Training Program; Referring Provider Anesthesiology; Visit Provider Anesthesiology
DX: M25.531 Pain in right wrist (principal); M25.541 Pain in joints of right hand
CPT/HCPCS: 73110; 73130

== ENCOUNTER → 2023-12-04 | Outpatient (CLI) | payer MEDICARE, OTHER, SELFPAY ==
[2023-12-04 10:27] LABS: Amphetamine Urine VISTA NEGATIVE (<1000 ng/mL); Barbiturate Urine VISTA NEGATIVE (< 200 ng/mL); Benzodiazepine Urine VISTA NEGATIVE (< 200 ng/mL); Cocaine Urine VISTA NEGATIVE (< 300 ng/mL); Ecstacy Urine VISTA NEGATIVE (< 500 ng/mL); Methadone Urine VISTA NEGATIVE (< 300 ng/mL); PCP Urine VISTA NEGATIVE (< 25 ng/mL); THC Urine VISTA NEGATIVE (< 50 ng/mL); Vista UDS pH Range 5
== END | disposition home or self-care (01) ==
PROVIDERS: PCP Student in an Organized Health Care Education/Training Program; Referring Provider Anesthesiology; Visit Provider Anesthesiology
DX: F11.20 Opioid dependence, uncomplicated (principal)
CPT/HCPCS: 80307

== ENCOUNTER 2024-03-31 10:23 | Day surgery (SDC) | payer MEDICARE, OTHER, SELFPAY ==
--- NOTE | 2024-03-27 16:25 | RAD_ITS ---
INDICATION: For PPM generator change EXAMINATION/TECHNIQUE: X-RAY - XR Chest 2 Views COMPARISON: Prior study dated: Report from 08/14/2020. Images not available. FINDINGS: LINES/DEVICES: Left chest wall pacer with leads over the right atrium and right ventricle. Leads appear intact. LUNGS: The lungs are well expanded. No consolidation, edema or effusion. No pneumothorax. MEDIASTINUM AND CARDIOVASCULAR STRUCTURES: Cardiac silhouette not enlarged. Central airways and mediastinal contour are unremarkable. Probable calcified left hilar lymph nodes. BONES AND SOFT TISSUES: No acute abnormality. Multilevel degenerative changes of the spine. RAD/Chest PA and Lateral IMPRESSION: Left chest wall pacer with leads at the right atrium and right ventricle. Electronically Signed: Willie Sexton MD at 22:09 EST ,
[2024-03-27 16:40] LABS: Bacteria 0 SEEN /hpf (None Seen); Mucous, Urine 0 SEEN /hpf (<or=2+); Red Blood Cells-Urine 0 SEEN /hpf (0-5)
[2024-03-27 17:23] LABS: Mean Corp Hgb Conc 31.6 g/dL (32-36); Mean Corpuscular Volume 88.6 fL (80-94); Mean Platelet Vol. 10.5 fl (6.2-12.0); Platelet Count 191 K/mm3 (150-450); RBC Distribution Width CV 14.1 % (11.6-14.6); RBC Distribution Width SD 45.7 fl (35.1-43.9); Red Blood Count 4.29 M/mm3 (4.6-6.2); White Blood Count 6.8 K/mm3 (4.4-11.0)
[2024-03-27 17:26] LABS: Color, Urine Yellow (Yellow); Glucose, Dipstick Normal (Normal); Ketone-Dipstick Negative (Negative); Leukocyte Esterase-Dipstick Negative /ul (Negative); Nitrite-Dipstick Negative (Negative); Occult Blood-Urine Negative /ul (Negative); Protein-Dipstick 15 mg/dl (Negative); Urine Bilirubin Dipstick Negative (Negative); Urine Clarity Clear (Clear); Urine Urobilinogen Normal (Normal)
[2024-03-27 17:37] LABS: White Blood Cells 0-5 SEEN /hpf (0-5)
[2024-03-27 17:38] LABS: Squamous Epithelial Cells - UA 0-5 SEEN /hpf (0-5)
[2024-03-27 17:46] LABS: Anion Gap 4 (5-15); BUN 24 mg/dL (7-18); BUN/Creat Ratio 21.8 RATIO (10-20); Calcium,Total 8.6 mg/dL (8.5-10.1); Chloride 104 mmol/L (98-107); EST Glomerular Filtration Rate 68 mL/min (>60); Est Glom Filt Rate - Afr Amer 82 mL/min (>60); Glucose 117 mg/dL (74-106); Potassium 4.4 mmol/L (3.5-5.1); Sodium Level 139 mmol/L (136-145)
[2024-03-28 10:57] VITALS: BMI 29.5
--- NOTE | 2024-03-31 12:14 | CL.IE_ITS ---
Patient: PATRICK PADGETT Study Date: 03/31/2024 Performing: Alfredo Dang MD : [id number] Age: 84 Gender: male PROCEDURES PERFORMED LP07-([id number])BATTERY REMOVAL+REPLACEMENT PACER-DUAL LEAD INDICATIONS Mobitz (type II) AV block PROCEDURE DETAILS The patient was brought to the Catheterization Lab in the postabsorptive nonsedated state. Informed consent was obtained prior to the procedure. Local anesthetic was given subcutaneously to the left upper chest area with Lidocaine 2%. Incision was made to the left upper chest. PPM generator was removed. PPM ventricular lead (existing) was checked and tested. PPM atrial lead (existing) was checked and tested. Device pocket was irrigated with antibiotic. PPM generator was attached to the lead(s) and inserted into the pocket. Subcutaneous closure was completed with 3-0 Vicryl. Skin closure was completed with 4-0 Vicryl. Steri-strips applied to Lt chest area. The patient tolerated the procedure well. Estimated Blood Loss: 10 ml's IMPLANTED / EX-PLANTED DEVICES EXPLANTED DEVICE(S): PPM Generator - Bonbon Dipper: [employer], Model # Essentio MRI L111 , Serial # [id number] IMPLANTED DEVICE(S): PPM Generator - Bonbon Dipper: [employer], Model # Essentio MRI DR L111 , Serial # [id number] DEVICE PARAMETERS DEVICE PARAMETERS: Mode- DDDR Lower rate- 60 Upper rate- 130 CONCLUSIONS / RECOMMENDATIONS Device Conclusions: Successful implantation of a dual chamber pacemaker battery change and replacement Device Recommendations: Follow up with Primary Care Physician PROCEDURE MEDICATIONS Versed 1 mg IV Fentanyl 50 mcg IV Versed 1 mg IV Versed 1 mg IV Oxygen: 2 L/min via nasal cannula Ancef 2 Gm IV @ 03/31/2024 11:40:10 Signed By Alfredo Dang MD On 03/31/2024 12:13:38 Alfredo Dang MD
== END 2024-03-31 13:15 | disposition home or self-care (01) ==
PROVIDERS: PCP Student in an Organized Health Care Education/Training Program; Referring Provider Internal Medicine Cardiovascular Disease; Visit Provider Internal Medicine Cardiovascular Disease
DX: Z45.018 Encounter for adjustment and management of other part of cardiac pacemaker (principal); I27.21 Secondary pulmonary arterial hypertension; E11.9 Type 2 diabetes mellitus without complications; I44.1 Atrioventricular block, second degree; I10 Essential (primary) hypertension; I25.10 Atherosclerotic heart disease of native coronary artery without angina pectoris; E78.2 Mixed hyperlipidemia; E66.3 Overweight; N40.0 Benign prostatic hyperplasia without lower urinary tract symptoms; M19.90 Unspecified osteoarthritis, unspecified site; G89.29 Other chronic pain; Z68.29 Body mass index [BMI] 29.0-29.9, adult; Z86.14 Personal history of Methicillin resistant Staphylococcus aureus infection; Z86.73 Personal history of transient ischemic attack (TIA), and cerebral infarction without residual deficits; Z96.651 Presence of right artificial knee joint; Z79.899 Other long term (current) drug therapy
CPT/HCPCS: 33228; 36415; 71046; 80048; 81001; 85027; 99152; 99153

== ENCOUNTER → 2024-04-30 | Outpatient (CLI) | payer MEDICARE, OTHER, SELFPAY ==
--- NOTE | 2024-04-30 08:29 | EKG12_ITS ---
Test Reason : PREOP Blood Pressure : */* mmHG Vent. Rate : 63 BPM Atrial Rate : 63 BPM P-R Int : 216 ms QRS Dur : 194 ms QT Int : 486 ms P-R-T Axes : 65 -81 91 degrees QTcB Int : 497 ms Sinus rhythm with 1st degree A-V block with electronic ventricular pacer tracking NSR Abnormal ECG Confirmed by Ramana Wood ([id number]), supervising editor news reel LUIS DUARTE ([id number]) on 05/01/2024 8:00:58 AM Referred By: Milo Omalley Confirmed By: Ramana Wood
[2024-04-30 09:45] LABS: Hematocrit 37.4 % (40-54); Hemoglobin 11.9 g/dL (13.0-16.5); Mean Corp Hgb Conc 31.8 g/dL (32-36); Mean Corpuscular Hgb 28.2 pg (27.0-32.0); Mean Corpuscular Volume 88.6 fL (80-94); Mean Platelet Vol. 10.3 fl (6.2-12.0); Platelet Count 186 K/mm3 (150-450); RBC Distribution Width CV 14.9 % (11.6-14.6); RBC Distribution Width SD 47.6 fl (35.1-43.9); Red Blood Count 4.22 M/mm3 (4.6-6.2); White Blood Count 6.2 K/mm3 (4.4-11.0)
[2024-04-30 10:12] LABS: Anion Gap 4 (5-15); BUN 21 mg/dL (7-18); BUN/Creat Ratio 17.6 RATIO (10-20); Calcium,Total 8.9 mg/dL (8.5-10.1); Chloride 106 mmol/L (98-107); Creatinine, Serum 1.19 mg/dL (0.70-1.30); EST Glomerular Filtration Rate 62 mL/min (>60); Est Glom Filt Rate - Afr Amer 75 mL/min (>60); Glucose 108 mg/dL (74-106); Potassium 4.1 mmol/L (3.5-5.1); Sodium Level 139 mmol/L (136-145)
== END | disposition home or self-care (01) ==
LOC: PSN 08:29
PROVIDERS: PCP Student in an Organized Health Care Education/Training Program; Referring Provider Otolaryngology; Visit Provider Otolaryngology
DX: Z01.818 Encounter for other preprocedural examination (principal); Z01.810 Encounter for preprocedural cardiovascular examination
CPT/HCPCS: 36415; 80048; 85027; 93005

== ENCOUNTER → 2024-09-05 | Outpatient (CLI) | payer MEDICARE, OTHER, SELFPAY ==
--- NOTE | 2024-09-05 08:10 | CT_ITS ---
PROCEDURE: SINUS/FACIAL BONE REASON FOR EXAM: OTHER CHRONIC SINUSITIS TECHNIQUE: SINUS/FACIAL BONE Coronal and Sagittal reconstruction series were provided. One or more dose reduction techniques were used (e.g., Automated exposure control, adjustment of the mA and/or kV according to patient size, use of iterative reconstruction technique). Dose report: CTDI L volume: 33.06 mGy. DLP: 854.51 mGy. COMPARISON: None FINDINGS: Frontal: Air-fluid level at the base of both frontal sinuses. Ethmoid: Partial opacification of the ethmoid sinuses bilaterally. Sphenoid: The sphenoid sinuses clear. Maxillary: Almost complete opacification of the right maxillary sinus. Mucosal thickening at the base of the left maxillary sinus. Compromise of the right ostiomeatal complex due to the mucosal hypertrophy at that site. Turbinates: Kathleen bullosa of the right middle turbinate. Nasal Septum: Midline Mastoids/Middle Ears: Well aerated. CT/Sinus/Facial Bone IMPRESSION: Almost complete opacification of the right maxillary sinus and mucosal thickeni ng of the left maxillary sinus. Compromise of the right ostiomeatal complex due to mucosal hypertrophy. Partial opacification of the ethmoid sinuses. Air-fluid level at the base of both frontal sinuses. [facility]
== END | disposition home or self-care (01) ==
PROVIDERS: PCP Student in an Organized Health Care Education/Training Program; Referring Provider Otolaryngology; Visit Provider Otolaryngology
DX: J32.9 Chronic sinusitis, unspecified (principal)
CPT/HCPCS: 70486

== ENCOUNTER → 2025-02-02 | Outpatient (CLI) | payer MEDICARE, OTHER, SELFPAY | END | disposition home or self-care (01) | LOC: LABSPEC 15:26 | PROVIDERS: PCP Student in an Organized Health Care Education/Training Program | DX: J02.9 Acute pharyngitis, unspecified (principal) | CPT/HCPCS: 87070; 87077; 87186; 87205 ==

== ENCOUNTER → 2025-03-05 | Outpatient (CLI) | payer MEDICARE, OTHER, SELFPAY ==
[2025-03-05 18:18] LABS: Anion Gap 9 (5-15); BUN 28 mg/dL (4-19); BUN/Creat Ratio 19.9 RATIO (10-20); Calcium,Total 9.3 mg/dL (7.6-11.0); Carbon Dioxide 29.2 mmol/L (21.0-32.0); Chloride 103 mmol/L (98-108); Glucose 93 mg/dL (70-99); Potassium 4.4 mmol/L (3.3-5.1)
[2025-03-06 07:35] LABS: Pro- Brain NATRIURETIC PEPTIDE 315 pg/mL (<=1800)
== END | disposition home or self-care (01) ==
LOC: LAB 15:22
PROVIDERS: PCP Student in an Organized Health Care Education/Training Program; Referring Provider Internal Medicine Pulmonary Disease; Visit Provider Internal Medicine Pulmonary Disease
DX: I50.32 Chronic diastolic (congestive) heart failure (principal)
CPT/HCPCS: 36415; 80048; 83880